=== PATIENT | female | born 1955 | race African-American/Black ===

== ENCOUNTER 2017-05-28 14:05 | Emergency (ER) | payer MEDICARE, MEDICAID ==
[~2017-05-28] VITALS: Ht 165.1 cm; Wt 60.0 kg
[~2017-05-28 14:05] MED LIST: AMLO10TA80 PO; ASPI1TAB6 PO; BUPR150T2 PO; PANT40TA4 PO; QUET200T29 PO; SIMV20TA6 PO; SITA100T11 PO; VALS1TAB78 PO
[2017-05-28 16:56] LABS: BASOPHILS % 0.7 % (0.0-2.0); EOSINOPHILS % 1.1 % (0.0-5.0); HEMATOCRIT. 45.3 % (36.0-48.0); HEMOGLOBIN. 15.7 g/dL (12.0-16.0); LYMPHOCYTES % 36.5 % (20.0-50.0); MEAN CORPUSCULAR HEMOGLOBIN 35.6 pg (28.0-32.0); MEAN CORPUSCULAR VOLUME 102.8 fL (81.0-99.0); MEAN PLATELET VOLUME 9.6 fl (7.4-10.4); MONOCYTES % 6.4 % (2.0-8.0); NEUTROPHILS % 55.3 % (40.0-76.0); PLATELET 143 x1000/uL (130-400); RED BLOOD CELL COUNT 4.41 mill/uL (4.2-5.4); RED CELL DISTRIBUTION WIDTH 14.9 % (11.6-14.6)
[2017-05-28 17:03] LABS: CHLORIDE 95 mEq/L (98-107)
[2017-05-28 17:04] LABS: PROTHROMBIN TIME 10.7 sec (9.4-11.6)
[2017-05-28 17:11] LABS: CARBON DIOXIDE 29 mEq/L (21-32)
[2017-05-28] MEDS ORDERED: INSULIN REGULAR (HUMULIN R) 300UNITS/3ML SUBCUT NR (18:15)
[2017-05-28] MEDS ORDERED: ONDANSETRON HCL 4MG/2ML VIAL IV NR (18:15)
[2017-05-28] MEDS ORDERED: FAMOTIDINE 20MG/2ML VIAL IV NR (18:15)
[2017-05-28] MEDS ORDERED: SODIUM CHLORIDE 0.9% 1,000 ML IV NR (18:15)
[2017-05-28 19:18] LABS: CLARITY URINE CLEAR (CLEAR); COLOR URINE YELLOW (YELLOW); KETONES URINE 1+ (NEGATIVE); LEUKOCYTE ESTERASE URINE NEGATIVE (NEGATIVE); NITRITE URINE NEGATIVE (NEGATIVE); OCCULT BLOOD URINE NEGATIVE (NEGATIVE); PROTEIN URINE NEGATIVE (NEGATIVE); SPECIFIC GRAVITY URINE 1.032 (1.005-1.030); UROBILINOGEN URINE 0.2 E.U./dL (0.2-1.0)
[2017-05-28] MEDS ORDERED: ACETAMINOPHEN WITH CODEINE 300/30MG TABLET PO ONE (19:30)
[2017-05-28] MEDS ORDERED: FLUCONAZOLE 100MG TABLET PO ONE (20:15)
[2017-05-28] MEDS ORDERED: FLUCONAZOLE 100MG TABLET PO NR (21:00)
[2017-05-28 21:19] VITALS: BP 113/69
== END 2017-05-28 21:42 | disposition home or self-care (01) ==
LOC: ER 14:30
DX: R19.7 Diarrhea, unspecified (principal); B37.3 Candidiasis of vulva and vagina; E11.65 Type 2 diabetes mellitus with hyperglycemia; I10 Essential (primary) hypertension; E78.00 Pure hypercholesterolemia, unspecified; Z88.5 Allergy status to narcotic agent; Z79.82 Long term (current) use of aspirin; Z79.899 Other long term (current) drug therapy; Z86.59 Personal history of other mental and behavioral disorders
CPT/HCPCS: 36415; 80053; 81001; 82962; 83690; 85025; 85610; 93005; 96361; 96372; 96374; 96375; 99285; J1815; J2405; J3490; J7030

== ENCOUNTER 2019-03-08 04:16 | Inpatient (IN) | payer MEDICARE, MEDICAID ==
[~2019-03-08] VITALS: Ht 165.1 cm; Wt 63.5 kg
[2019-03-08] MEDS ORDERED: PREDNISONE 20MG TABLET PO STA (04:50)
[2019-03-08] MEDS ORDERED: ALBUTEROL (0.083%) 2.5MG/3ML NEB HHN STA (04:50)
[2019-03-08] MEDS ORDERED: IPRATROPIUM BROMIDE (0.02%) 0.5MG/2.5ML NEB HHN STA (04:50)
[2019-03-08] MEDS ORDERED: MAGNESIUM 2 G PREMIX 50 ML IV ONE (05:00)
[2019-03-08 05:12] LABS: BASOPHILS % 1.3 % (0.0-2.0); EOSINOPHILS % 2.3 % (0.0-5.0); HEMATOCRIT. 36.7 % (36.0-48.0); HEMOGLOBIN. 12.5 g/dL (12.0-16.0); LYMPHOCYTES % 47.6 % (20.0-50.0); MEAN CORPUSCULAR HEMOGLOBIN 33.9 pg (28.0-32.0); MEAN CORPUSCULAR VOLUME 99.2 fL (81.0-99.0); MEAN PLATELET VOLUME 8.3 fl (7.4-10.4); MONOCYTES % 8.2 % (2.0-8.0); NEUTROPHILS % 40.6 % (40.0-76.0); PLATELET 176 x1000/uL (130-400); RED BLOOD CELL COUNT 3.69 mill/uL (4.2-5.4); RED CELL DISTRIBUTION WIDTH 14.5 % (11.6-14.6)
[2019-03-08 05:14] LABS: CHLORIDE 104 mEq/L (98-107)
[2019-03-08] MEDS ORDERED: ONDANSETRON HCL 4MG/2ML INJ IV ONE (06:15)
[2019-03-08] MEDS ORDERED: NOREPINEPHRINE 4 MG in DEXT 5% WATER 246 ML IV ONE (06:30)
[2019-03-08] MEDS ORDERED: DOCUSATE SODIUM 100MG CAPSULE PO PRN (06:45)
[2019-03-08] MEDS ORDERED: CLONIDINE 0.1MG TABLET PO PRN (06:45)
[2019-03-08] MEDS ORDERED: HYDROCODONE/ACETAMINOPHEN 10/325MG TABLET PO PRN (06:45)
[2019-03-08] MEDS ORDERED: DIPHENHYDRAMINE 50MG/ML VIAL IV PRN (06:45)
[2019-03-08] MEDS ORDERED: MAGNESIUM/ALUMINUM HYDROXIDE/SIMETHICONE 30ML UDC PO PRN (06:45)
[2019-03-08] MEDS ORDERED: LORAZEPAM 2MG/ML CPJ IV PRN (06:45)
[2019-03-08] MEDS ORDERED: ONDANSETRON HCL 4MG/2ML INJ IV PRN (06:45)
[2019-03-08] MEDS ORDERED: GUAIFENESIN 200MG/10ML SUGAR FREE UDC PO PRN (06:45)
[2019-03-08] MEDS ORDERED: ACETAMINOPHEN 325MG TABLET PO PRN (06:45)
[2019-03-08] MEDS ORDERED: DEXTROSE 50% WATER 50ML SYRINGE IV PRN (07:00)
[2019-03-08] MEDS ORDERED: IPRATROPIUM/ALBUTEROL 0.5-3(2.5)MG/3ML NEB HHN PRN (08:00)
[2019-03-08] MEDS: BLOOD SUGAR DIAGNOSTIC STRIP TEST SCH ×4 (08:09→21:01)
[2019-03-08 08:10] VITALS: BP_SYST 156; BP_DIAS 56; BP_DIAS 93
[2019-03-08] MEDS: INSULIN LISPRO 100 UNITS/ML SUBCUT SCH ×4 (08:10→20:57)
[2019-03-08] MEDS ORDERED: NA PHOS,M-B/NA PHOS,DI-BA ENEMA 118ML PR PRN (09:00)
[2019-03-08] MEDS: ASPIRIN 81MG EC TABLET PO SCH (09:16)
[2019-03-08] MEDS: ENOXAPARIN 40MG/0.4ML SYR SUBCUT SCH (09:17)
[2019-03-08 12:00] VITALS: BP 156/87
[2019-03-08] MEDS: SODIUM CHLORIDE 0.9% INJ 3ML FLUSH IVF SCH ×2 (12:37→20:58)
[2019-03-08] MEDS: ACETAMINOPHEN WITH CODEINE 300/30MG TABLET PO PRN (13:46)
[2019-03-08] MEDS: MULTIVITAMINS,THER W-MINERALS TABLET PO SCH (14:26)
[2019-03-08] MEDS: METHYLPREDNISOLONE SOD SUCC 40 MG/ML VIAL IV SCH ×2 (14:26→20:58)
[2019-03-08] MEDS: THIAMINE HCL 100MG TABLET PO SCH (14:26)
[2019-03-08] MEDS: FOLIC ACID 1MG TABLET PO SCH (14:27)
[2019-03-08] MEDS: NICOTINE 21MG PATCH TD SCH (14:27)
[2019-03-08 16:00] VITALS: BP 151/74
[2019-03-08 16:59] LABS: CLARITY URINE CLOUDY (CLEAR); COLOR URINE YELLOW (YELLOW); KETONES URINE NEGATIVE (NEGATIVE); LEUKOCYTE ESTERASE URINE NEGATIVE (NEGATIVE); NITRITE URINE POSITIVE (NEGATIVE); OCCULT BLOOD URINE NEGATIVE (NEGATIVE); PROTEIN URINE NEGATIVE (NEGATIVE); SPECIFIC GRAVITY URINE 1.026 (1.005-1.030); UROBILINOGEN URINE 0.2 E.U./dL (0.2-1.0)
[2019-03-08 17:10] LABS: *AMPHETAMINES SCREEN URINE NEGATIVE (NEGATIVE); *BARBITURATES SCREEN URINE NEGATIVE (NEGATIVE); *BENZODIAZEPINES SCREEN URINE NEGATIVE (NEGATIVE); *COCAINE SCREEN URINE NEGATIVE (NEGATIVE)
[2019-03-08 17:11] LABS: CANNABINOID URINE SCREEN NEGATIVE (NEGATIVE); METHADONE URINE SCREEN NEGATIVE (NEGATIVE); OPIATES URINE SCREEN PRESUMTIVE POSITIVE (NEGATIVE); PHENCYCLIDINE URINE SCREEN NEGATIVE (NEGATIVE)
[2019-03-08 18:23] LABS: CREATINE KINASE 232 IU/L (26-192); CREATINE KINASE MB FRACTION 3.2 ng/mL (0.5-3.6)
[2019-03-08 20:00] VITALS: BP 166/94
[2019-03-08] MEDS: QUETIAPINE FUMARATE 50MG TABLET PO SCH ×2 (21:00→23:25)
[2019-03-08] MEDS: HYDRALAZINE 20MG/ML VIAL IV PRN (21:05)
[2019-03-08] MEDS: IPRATROPIUM/ALBUTEROL 0.5-3(2.5)MG/3ML NEB HHN SCH (21:05)
[2019-03-09] VITALS: BP 124/69
[2019-03-09 00:47] LABS: CREATINE KINASE 165 IU/L (26-192)
[2019-03-09 00:51] LABS: CREATINE KINASE MB FRACTION 2.9 ng/mL (0.5-3.6)
[2019-03-09] MEDS: IPRATROPIUM/ALBUTEROL 0.5-3(2.5)MG/3ML NEB HHN SCH ×4 (03:05→20:13)
[2019-03-09 04:00] VITALS: BP 116/75
[2019-03-09 05:57] LABS: BASOPHILS % 0.5 % (0.0-2.0); HEMATOCRIT. 42.3 % (36.0-48.0); HEMOGLOBIN. 14.4 g/dL (12.0-16.0); LYMPHOCYTES % 9.2 % (20.0-50.0); MEAN CORPUSCULAR HEMOGLOBIN 33.9 pg (28.0-32.0); MEAN CORPUSCULAR VOLUME 99.5 fL (81.0-99.0); MEAN PLATELET VOLUME 8.9 fl (7.4-10.4); MONOCYTES % 3.2 % (2.0-8.0); NEUTROPHILS % 87.1 % (40.0-76.0); PLATELET 211 x1000/uL (130-400); RED BLOOD CELL COUNT 4.25 mill/uL (4.2-5.4); RED CELL DISTRIBUTION WIDTH 14.4 % (11.6-14.6)
[2019-03-09] MEDS: METHYLPREDNISOLONE SOD SUCC 40 MG/ML VIAL IV SCH ×3 (06:23→21:11)
[2019-03-09] MEDS: BLOOD SUGAR DIAGNOSTIC STRIP TEST SCH ×4 (06:27→20:57)
[2019-03-09] MEDS: INSULIN LISPRO 100 UNITS/ML SUBCUT SCH ×5 (06:27→21:19)
[2019-03-09] MEDS: SODIUM CHLORIDE 0.9% INJ 3ML FLUSH IVF SCH ×3 (06:28→21:11)
[2019-03-09 06:35] LABS: CHLORIDE 97 mEq/L (98-107)
[2019-03-09 06:47] LABS: LDL CHOLESTEROL 106 mg/dL (5-100); T4 FREE 0.72 ng/dL (0.76-1.46)
[2019-03-09 06:48] LABS: HDL CHOLESTEROL 104 mg/dL (40-59)
[2019-03-09 08:00] VITALS: BP 168/85
[2019-03-09] MEDS: ENOXAPARIN 40MG/0.4ML SYR SUBCUT SCH (08:56)
[2019-03-09] MEDS: MULTIVITAMINS,THER W-MINERALS TABLET PO SCH (08:57)
[2019-03-09] MEDS: FOLIC ACID 1MG TABLET PO SCH (08:57)
[2019-03-09] MEDS: THIAMINE HCL 100MG TABLET PO SCH (08:57)
[2019-03-09] MEDS: ASPIRIN 81MG EC TABLET PO SCH (08:57)
[2019-03-09] MEDS: NICOTINE 21MG PATCH TD SCH (09:22)
[2019-03-09] MEDS ORDERED: LEVOFLOXACIN 500MG TABLET PO SCH (10:30)
[2019-03-09 12:00] VITALS: BP 165/83
[2019-03-09] MEDS: INSULIN GLARGINE UD 100 UNITS/ML SYR SUBCUT SCH (13:11)
[2019-03-09] MEDS: HYDRALAZINE 20MG/ML VIAL IV PRN (13:56)
[2019-03-09 16:00] VITALS: BP 147/82
[2019-03-09] MEDS: ACETAMINOPHEN WITH CODEINE 300/30MG TABLET PO PRN (18:06)
[2019-03-09 18:22] LABS: BG BASE EXCESS 1.7 mmol/L (-2.0-2.0); BG CARBOXYHEMOGLOBIN 0.7 % (0.5-1.5); BG FRACTION INSPIRED OXYGEN 21; BG HCO3 ACT 25.3 mmol/L (22.0-26.0); BG OXYHEMOGLOBIN 96.3 % (94.0-97.0); BG PCO2 36.6 mmHg (35.0-45.0); BG PH 7.458 (7.350-7.450); BG PO2 93.1 mmHg (75.0-100.0); BG SAMPLE SITE RIGHT BRACHIAL; BG TOTAL HEMOGLOBIN 14.6 g/dL (12.0-18.0); BG VENT MODE ROOM AIR
[2019-03-09 20:00] VITALS: BP 153/96
[2019-03-09] MEDS: QUETIAPINE FUMARATE 50MG TABLET PO SCH (20:56)
[2019-03-10] VITALS: BP 146/85
[2019-03-10] MEDS: IPRATROPIUM/ALBUTEROL 0.5-3(2.5)MG/3ML NEB HHN SCH ×3 (02:00→13:08)
[2019-03-10 04:00] VITALS: BP 144/75
[2019-03-10] MEDS: SODIUM CHLORIDE 0.9% INJ 3ML FLUSH IVF SCH (06:04)
[2019-03-10] MEDS: BLOOD SUGAR DIAGNOSTIC STRIP TEST SCH ×2 (06:04→12:50)
[2019-03-10] MEDS: METHYLPREDNISOLONE SOD SUCC 40 MG/ML VIAL IV SCH (06:04)
[2019-03-10 07:31] LABS: BASOPHILS % 0.2 % (0.0-2.0); HEMATOCRIT. 37.5 % (36.0-48.0); HEMOGLOBIN. 12.7 g/dL (12.0-16.0); LYMPHOCYTES % 10.8 % (20.0-50.0); MEAN CORPUSCULAR HEMOGLOBIN 33.7 pg (28.0-32.0); MEAN CORPUSCULAR VOLUME 99.2 fL (81.0-99.0); MEAN PLATELET VOLUME 8.9 fl (7.4-10.4); PLATELET 187 x1000/uL (130-400); RED BLOOD CELL COUNT 3.78 mill/uL (4.2-5.4); RED CELL DISTRIBUTION WIDTH 14.8 % (11.6-14.6)
[2019-03-10 07:45] LABS: CHLORIDE 103 mEq/L (98-107)
[2019-03-10 08:00] VITALS: BP 135/71
[2019-03-10] MEDS: ASPIRIN 81MG EC TABLET PO SCH (08:34)
[2019-03-10] MEDS: MULTIVITAMINS,THER W-MINERALS TABLET PO SCH (08:35)
[2019-03-10] MEDS: ENOXAPARIN 40MG/0.4ML SYR SUBCUT SCH (08:35)
[2019-03-10] MEDS: FOLIC ACID 1MG TABLET PO SCH (08:35)
[2019-03-10] MEDS: THIAMINE HCL 100MG TABLET PO SCH (08:35)
[2019-03-10] MEDS: NICOTINE 21MG PATCH TD SCH (08:36)
[2019-03-10] MEDS: INSULIN LISPRO 100 UNITS/ML SUBCUT SCH (09:07)
[2019-03-10 12:00] VITALS: BP 153/88
[2019-03-10 12:02] VITALS: BP 135/71
[2019-03-10] MEDS: INSULIN GLARGINE UD 100 UNITS/ML SYR SUBCUT SCH (12:52)
== END 2019-03-10 15:11 | disposition home or self-care (01) | DRG 189 ==
LOC: ER 04:16 → 7WST 06:42 → EDBEDREQTM 06:46 → EDBEDREQ 06:46 → ENRESERV 07:20 → 7WST 09:05
PROVIDERS: ADMIT Internal Medicine; ATTEND Internal Medicine
DX: J96.00 Acute respiratory failure, unspecified whether with hypoxia or hypercapnia (principal); J44.1 Chronic obstructive pulmonary disease with (acute) exacerbation; N39.0 Urinary tract infection, site not specified; I10 Essential (primary) hypertension; E11.9 Type 2 diabetes mellitus without complications; F41.9 Anxiety disorder, unspecified; F17.210 Nicotine dependence, cigarettes, uncomplicated; K76.0 Fatty (change of) liver, not elsewhere classified; Z60.2 Problems related to living alone; Z79.899 Other long term (current) drug therapy; Z79.84 Long term (current) use of oral hypoglycemic drugs; Z79.82 Long term (current) use of aspirin; Z88.6 Allergy status to analgesic agent; Z90.49 Acquired absence of other specified parts of digestive tract; Z98.891 History of uterine scar from previous surgery; Z84.89 Family history of other specified conditions
CPT/HCPCS: 36415; 36600; 71045; 80048; 80061; 80305; 81003; 82375; 82550; 82553; 82805; 82962; 83880; 84439; 84443; 84484; 93005; 94640; 99291; J0360; J1650; J1815; J2405; J2920; J3475; J3490; J7060; J7512; J7611; J7620

== ENCOUNTER 2019-03-23 06:07 | Inpatient (IN) | payer MEDICARE, MEDICAID ==
[~2019-03-23] VITALS: Ht 167.6 cm; Wt 64.9 kg
[2019-03-23] VITALS (7 sets, daily range): BP systolic 124–197; BP diastolic 65–96
[~2019-03-23 06:07] MED LIST changes: -BUPR150T2 PO; -SIMV20TA6 PO; -SITA100T11 PO; -VALS1TAB78 PO
[2019-03-23 08:12] LABS: CHLORIDE 106 mEq/L (98-107)
[2019-03-23 08:25] LABS: BASOPHILS % 0.5 % (0.0-2.0); EOSINOPHILS % 2.1 % (0.0-5.0); HEMATOCRIT. 36.4 % (36.0-48.0); HEMOGLOBIN. 12.2 g/dL (12.0-16.0); LYMPHOCYTES % 24.4 % (20.0-50.0); MEAN CORPUSCULAR HEMOGLOBIN 33.7 pg (28.0-32.0); MEAN CORPUSCULAR VOLUME 100.4 fL (81.0-99.0); MEAN PLATELET VOLUME 9.2 fl (7.4-10.4); MONOCYTES % 6.4 % (2.0-8.0); NEUTROPHILS % 66.6 % (40.0-76.0); PLATELET 150 x1000/uL (130-400); RED BLOOD CELL COUNT 3.63 mill/uL (4.2-5.4); RED CELL DISTRIBUTION WIDTH 15.2 % (11.6-14.6)
[2019-03-23] MEDS ORDERED: ONDANSETRON HCL 4MG/2ML INJ IV PRN (12:00)
[2019-03-23] MEDS ORDERED: ACETAMINOPHEN 325MG TABLET PO PRN (12:00)
[2019-03-23] MEDS ORDERED: DOCUSATE SODIUM 100MG CAPSULE PO PRN (12:00)
[2019-03-23] MEDS ORDERED: HYDROCODONE/ACETAMINOPHEN 5/325MG TABLET PO PRN (12:00)
[2019-03-23] MEDS ORDERED: LORAZEPAM 0.5MG TABLET PO PRN (12:00)
[2019-03-23] MEDS ORDERED: CLONIDINE 0.1MG TABLET PO PRN (12:00)
[2019-03-23] MEDS: IPRATROPIUM/ALBUTEROL 0.5-3(2.5)MG/3ML NEB HHN SCH ×3 (13:02→21:58)
[2019-03-23] MEDS ORDERED: DEXTROSE 50% WATER 50ML SYRINGE IV PRN (13:15)
[2019-03-23] MEDS: INSULIN LISPRO 100 UNITS/ML SUBCUT SCH ×3 (13:45→21:43)
[2019-03-23] MEDS ORDERED: METHYLPREDNISOLONE SOD SUCC 125 MG/2 ML VIAL IV NR (16:28)
[2019-03-23] MEDS ORDERED: TERBUTALINE SULFATE 1MG/ML VIAL SUBCUT NR (16:30)
[2019-03-23] MEDS ORDERED: LORAZEPAM 2MG/ML CPJ IV PRN (17:15)
[2019-03-23] MEDS ORDERED: ALPRAZOLAM 0.25 MG TABLET PO PRN (17:15)
[2019-03-23] MEDS: BLOOD SUGAR DIAGNOSTIC STRIP TEST SCH ×2 (17:33→21:43)
[2019-03-23] MEDS ORDERED: IPRATROPIUM/ALBUTEROL 0.5-3(2.5)MG/3ML NEB HHN PRN (18:00)
[2019-03-23] MEDS: THIAMINE HCL 100MG TABLET PO SCH (18:20)
[2019-03-23] MEDS: MULTIVITAMINS,THER W-MINERALS TABLET PO SCH (18:20)
[2019-03-23] MEDS: ENOXAPARIN 40MG/0.4ML SYR SUBCUT SCH (18:20)
[2019-03-23] MEDS: LORATADINE 10MG TABLET PO SCH (18:21)
[2019-03-23] MEDS: FOLIC ACID 1MG TABLET PO SCH (18:21)
[2019-03-23] MEDS ORDERED: QUETIAPINE FUMARATE 50MG TABLET PO SCH (21:00)
[2019-03-23] MEDS: PANTOPRAZOLE 40MG DR TABLET PO SCH (21:05)
[2019-03-23] MEDS: AMLODIPINE 10MG TABLET PO SCH (21:06)
[2019-03-23] MEDS: FAMOTIDINE 20MG TABLET PO SCH (21:42)
[2019-03-23] MEDS: QUETIAPINE FUMARATE 50MG TABLET PO SCH (21:42)
[2019-03-24] VITALS (12 sets, daily range): BP systolic 93–150; BP diastolic 49–79
[2019-03-24] MEDS: IPRATROPIUM/ALBUTEROL 0.5-3(2.5)MG/3ML NEB HHN SCH ×6 (01:50→20:45)
[2019-03-24] MEDS: FLUTICASONE PROPIONATE 50MCG/SPRAY BOTTLE BOTHNSTRLS SCH ×3 (01:57→20:19)
[2019-03-24 05:57] LABS: CHLORIDE 101 mEq/L (98-107)
[2019-03-24 06:06] LABS: LDL CHOLESTEROL 82 mg/dL (5-100)
[2019-03-24 06:08] LABS: HDL CHOLESTEROL 119 mg/dL (40-59)
[2019-03-24 06:16] LABS: HEMATOCRIT. 39.3 % (36.0-48.0); HEMOGLOBIN. 13.1 g/dL (12.0-16.0); MEAN CORPUSCULAR HEMOGLOBIN 33.9 pg (28.0-32.0); MEAN CORPUSCULAR VOLUME 101.4 fL (81.0-99.0); MEAN PLATELET VOLUME 9.5 fl (7.4-10.4); PLATELET 138 x1000/uL (130-400); RED BLOOD CELL COUNT 3.88 mill/uL (4.2-5.4); RED CELL DISTRIBUTION WIDTH 15.3 % (11.6-14.6)
[2019-03-24] MEDS ORDERED: INSULIN LISPRO 100 UNITS/ML SUBCUT SCH (07:45)
[2019-03-24] MEDS ORDERED: INSULIN LISPRO 100 UNITS/ML SUBCUT ONE (07:45)
[2019-03-24] MEDS ORDERED: DEXTROSE 50% WATER 50ML SYRINGE IV PRN (07:45)
[2019-03-24] MEDS: INSULIN LISPRO 100 UNITS/ML SUBCUT SCH ×4 (07:49→21:58)
[2019-03-24] MEDS: FOLIC ACID 1MG TABLET PO SCH (08:44)
[2019-03-24] MEDS: MULTIVITAMINS,THER W-MINERALS TABLET PO SCH (08:44)
[2019-03-24] MEDS: LORATADINE 10MG TABLET PO SCH (08:45)
[2019-03-24] MEDS: DOCUSATE SODIUM 100MG CAPSULE PO SCH ×3 (08:45→16:42)
[2019-03-24] MEDS: THIAMINE HCL 100MG TABLET PO SCH (08:45)
[2019-03-24] MEDS: PANTOPRAZOLE 40MG DR TABLET PO SCH (08:45)
[2019-03-24] MEDS: AMLODIPINE 10MG TABLET PO SCH (08:45)
[2019-03-24] MEDS: FAMOTIDINE 20MG TABLET PO SCH ×2 (08:45→20:19)
[2019-03-24] MEDS: NICOTINE 7MG PATCH TD SCH (08:46)
[2019-03-24] MEDS: BLOOD SUGAR DIAGNOSTIC STRIP TEST SCH ×3 (13:10→21:59)
[2019-03-24] MEDS ORDERED: TERBUTALINE SULFATE 1MG/ML VIAL SUBCUT NR (15:00)
[2019-03-24 15:17] LABS: PLATELET ESTIMATE NORMAL
[2019-03-24] MEDS: ENOXAPARIN 40MG/0.4ML SYR SUBCUT SCH (17:33)
[2019-03-24] MEDS: METHYLPREDNISOLONE SOD SUCC 125 MG/2 ML VIAL IV SCH (17:33)
[2019-03-24] MEDS: ACETAMINOPHEN WITH CODEINE 300/30MG TABLET PO PRN (20:20)
[2019-03-24] MEDS ORDERED: INSULIN LISPRO 100 UNITS/ML SUBCUT NR (21:45)
[2019-03-24] MEDS: QUETIAPINE FUMARATE 50MG TABLET PO SCH (22:00)
[2019-03-24] MEDS: INSULIN GLARGINE UD 100 UNITS/ML SYR SUBCUT SCH (22:03)
[2019-03-25] VITALS (12 sets, daily range): BP systolic 118–157; BP diastolic 47–90
[2019-03-25] MEDS: IPRATROPIUM/ALBUTEROL 0.5-3(2.5)MG/3ML NEB HHN SCH ×6 (00:12→21:19)
[2019-03-25] MEDS: METHYLPREDNISOLONE SOD SUCC 125 MG/2 ML VIAL IV SCH ×3 (01:24→12:07)
[2019-03-25 06:28] LABS: HEMATOCRIT. 36.8 % (36.0-48.0); HEMOGLOBIN. 12.3 g/dL (12.0-16.0); MEAN CORPUSCULAR HEMOGLOBIN 33.7 pg (28.0-32.0); MEAN CORPUSCULAR VOLUME 100.6 fL (81.0-99.0); MEAN PLATELET VOLUME 9.5 fl (7.4-10.4); PLATELET 152 x1000/uL (130-400); RED BLOOD CELL COUNT 3.66 mill/uL (4.2-5.4); RED CELL DISTRIBUTION WIDTH 14.8 % (11.6-14.6)
[2019-03-25 06:57] LABS: CHLORIDE 102 mEq/L (98-107)
[2019-03-25] MEDS: BLOOD SUGAR DIAGNOSTIC STRIP TEST SCH ×4 (08:25→21:00)
[2019-03-25] MEDS: PANTOPRAZOLE 40MG DR TABLET PO SCH (08:34)
[2019-03-25] MEDS: FAMOTIDINE 20MG TABLET PO SCH ×2 (08:38→22:07)
[2019-03-25] MEDS: MULTIVITAMINS,THER W-MINERALS TABLET PO SCH (08:38)
[2019-03-25] MEDS: THIAMINE HCL 100MG TABLET PO SCH (08:38)
[2019-03-25] MEDS: FLUTICASONE PROPIONATE 50MCG/SPRAY BOTTLE BOTHNSTRLS SCH ×2 (08:38→22:07)
[2019-03-25] MEDS: AMLODIPINE 10MG TABLET PO SCH (08:39)
[2019-03-25] MEDS: ACETAMINOPHEN WITH CODEINE 300/30MG TABLET PO PRN ×2 (08:39→18:17)
[2019-03-25] MEDS: FOLIC ACID 1MG TABLET PO SCH (08:39)
[2019-03-25] MEDS: LORATADINE 10MG TABLET PO SCH (08:39)
[2019-03-25] MEDS: NICOTINE 7MG PATCH TD SCH (08:41)
[2019-03-25] MEDS: DOCUSATE SODIUM 100MG CAPSULE PO SCH ×2 (08:41→17:00)
[2019-03-25] MEDS: INSULIN LISPRO 100 UNITS/ML SUBCUT SCH ×4 (08:57→22:08)
[2019-03-25] MEDS: INSULIN GLARGINE UD 100 UNITS/ML SYR SUBCUT SCH ×2 (09:45→22:07)
[2019-03-25 16:56] LABS: PLATELET ESTIMATE NORMAL
[2019-03-25] MEDS: ENOXAPARIN 40MG/0.4ML SYR SUBCUT SCH (17:18)
[2019-03-25] MEDS: METHYLPREDNISOLONE SOD SUCC 40 MG/ML VIAL IV SCH (17:19)
[2019-03-25] MEDS: QUETIAPINE FUMARATE 50MG TABLET PO SCH (22:07)
[2019-03-26] VITALS (11 sets, daily range): BP systolic 126–170; BP diastolic 56–104
[2019-03-26] MEDS: IPRATROPIUM/ALBUTEROL 0.5-3(2.5)MG/3ML NEB HHN SCH ×6 (00:24→20:30)
[2019-03-26] MEDS: METHYLPREDNISOLONE SOD SUCC 40 MG/ML VIAL IV SCH ×3 (01:42→17:40)
[2019-03-26 07:14] LABS: HEMATOCRIT. 38.1 % (36.0-48.0); MEAN CORPUSCULAR HEMOGLOBIN 33.7 pg (28.0-32.0); MEAN CORPUSCULAR VOLUME 99.2 fL (81.0-99.0); MEAN PLATELET VOLUME 9.3 fl (7.4-10.4); PLATELET 145 x1000/uL (130-400); RED BLOOD CELL COUNT 3.85 mill/uL (4.2-5.4); RED CELL DISTRIBUTION WIDTH 15.1 % (11.6-14.6)
[2019-03-26 07:31] LABS: CHLORIDE 104 mEq/L (98-107)
[2019-03-26] MEDS: INSULIN LISPRO 100 UNITS/ML SUBCUT SCH ×4 (08:00→20:51)
[2019-03-26] MEDS: BLOOD SUGAR DIAGNOSTIC STRIP TEST SCH ×4 (08:29→20:52)
[2019-03-26] MEDS: AMLODIPINE 10MG TABLET PO SCH (08:49)
[2019-03-26] MEDS: FAMOTIDINE 20MG TABLET PO SCH ×2 (08:49→20:48)
[2019-03-26] MEDS: FLUTICASONE PROPIONATE 50MCG/SPRAY BOTTLE BOTHNSTRLS SCH ×2 (08:49→20:53)
[2019-03-26] MEDS: MULTIVITAMINS,THER W-MINERALS TABLET PO SCH (08:49)
[2019-03-26] MEDS: LORATADINE 10MG TABLET PO SCH (08:49)
[2019-03-26] MEDS: NICOTINE 7MG PATCH TD SCH (08:50)
[2019-03-26] MEDS: DOCUSATE SODIUM 100MG CAPSULE PO SCH ×2 (08:50→17:00)
[2019-03-26] MEDS: FOLIC ACID 1MG TABLET PO SCH (08:50)
[2019-03-26] MEDS: THIAMINE HCL 100MG TABLET PO SCH (08:50)
[2019-03-26] MEDS: INSULIN GLARGINE UD 100 UNITS/ML SYR SUBCUT SCH ×2 (09:01→21:57)
[2019-03-26 12:42] LABS: PLATELET ESTIMATE NORMAL
[2019-03-26] MEDS: ENOXAPARIN 40MG/0.4ML SYR SUBCUT SCH (17:44)
[2019-03-26] MEDS: ACETAMINOPHEN WITH CODEINE 300/30MG TABLET PO PRN (20:48)
[2019-03-26] MEDS: QUETIAPINE FUMARATE 50MG TABLET PO SCH (23:57)
[2019-03-27] VITALS (8 sets, daily range): BP systolic 127–158; BP diastolic 72–100
[2019-03-27] MEDS: IPRATROPIUM/ALBUTEROL 0.5-3(2.5)MG/3ML NEB HHN SCH ×4 (01:00→11:47)
[2019-03-27 07:26] LABS: BASOPHILS % 0.1 % (0.0-2.0); HEMATOCRIT. 36.5 % (36.0-48.0); HEMOGLOBIN. 12.3 g/dL (12.0-16.0); LYMPHOCYTES % 17.1 % (20.0-50.0); MEAN CORPUSCULAR HEMOGLOBIN 33.9 pg (28.0-32.0); MEAN CORPUSCULAR VOLUME 100.3 fL (81.0-99.0); MEAN PLATELET VOLUME 9.7 fl (7.4-10.4); MONOCYTES % 5.4 % (2.0-8.0); NEUTROPHILS % 77.4 % (40.0-76.0); PLATELET 141 x1000/uL (130-400); RED BLOOD CELL COUNT 3.63 mill/uL (4.2-5.4); RED CELL DISTRIBUTION WIDTH 15.1 % (11.6-14.6)
[2019-03-27 07:28] LABS: CHLORIDE 105 mEq/L (98-107)
[2019-03-27] MEDS: INSULIN LISPRO 100 UNITS/ML SUBCUT SCH ×2 (08:00→12:38)
[2019-03-27] MEDS: BLOOD SUGAR DIAGNOSTIC STRIP TEST SCH ×2 (08:03→12:28)
[2019-03-27] MEDS: THIAMINE HCL 100MG TABLET PO SCH (08:24)
[2019-03-27] MEDS: AMLODIPINE 10MG TABLET PO SCH (08:24)
[2019-03-27] MEDS: METHYLPREDNISOLONE SOD SUCC 40 MG/ML VIAL IV SCH (08:24)
[2019-03-27] MEDS: FAMOTIDINE 20MG TABLET PO SCH (08:24)
[2019-03-27] MEDS: DOCUSATE SODIUM 100MG CAPSULE PO SCH ×2 (08:24→08:32)
[2019-03-27] MEDS: MULTIVITAMINS,THER W-MINERALS TABLET PO SCH (08:24)
[2019-03-27] MEDS: NICOTINE 7MG PATCH TD SCH (08:24)
[2019-03-27] MEDS: LORATADINE 10MG TABLET PO SCH (08:24)
[2019-03-27] MEDS: FOLIC ACID 1MG TABLET PO SCH (08:24)
[2019-03-27] MEDS: INSULIN GLARGINE UD 100 UNITS/ML SYR SUBCUT SCH (10:51)
[2019-03-27] MEDS ORDERED: INSLIS SUBCUT (12:33)
[2019-03-27] MEDS ORDERED: FAMO20TA8 PO (12:33)
[2019-03-27] MEDS ORDERED: LANTUSUD SUBCUT (12:33)
[2019-03-27] MEDS ORDERED: FOLI-43 PO (12:33)
[2019-03-27] MEDS ORDERED: LORA-249 PO (12:33)
[2019-03-27] MEDS ORDERED: SEREDK INH (12:33)
[2019-03-27] MEDS ORDERED: CLAR10 PO (12:33)
[2019-03-27] MEDS ORDERED: THIA100T72 PO (12:33)
== END 2019-03-27 20:45 | disposition home or self-care (01) | DRG 189 ==
LOC: ER 06:07 → 7WST 09:01 → EDBEDREQ 09:26 → ENRESERV 09:51 → 5EST 17:28
PROVIDERS: ADMIT Internal Medicine; ATTEND Internal Medicine
PROC: 5A09357 Assistance with Respiratory Ventilation, Less than 24 Consecutive Hours, Continuous Positive Airway Pressure (ICD-10-PCS; principal; 2019-03-23)
DX: J96.00 Acute respiratory failure, unspecified whether with hypoxia or hypercapnia (principal); J44.1 Chronic obstructive pulmonary disease with (acute) exacerbation; E11.65 Type 2 diabetes mellitus with hyperglycemia; F10.10 Alcohol abuse, uncomplicated; F17.200 Nicotine dependence, unspecified, uncomplicated; F41.0 Panic disorder [episodic paroxysmal anxiety]; F41.1 Generalized anxiety disorder; I16.0 Hypertensive urgency; J30.9 Allergic rhinitis, unspecified; I10 Essential (primary) hypertension; K59.00 Constipation, unspecified; K76.0 Fatty (change of) liver, not elsewhere classified; Z86.73 Personal history of transient ischemic attack (TIA), and cerebral infarction without residual deficits; Z79.4 Long term (current) use of insulin; Z90.49 Acquired absence of other specified parts of digestive tract; Z82.49 Family history of ischemic heart disease and other diseases of the circulatory system; Z83.3 Family history of diabetes mellitus; Z87.440 Personal history of urinary (tract) infections; Z88.5 Allergy status to narcotic agent
CPT/HCPCS: 36415; 71045; 80048; 80061; 82962; 83036; 83880; 84484; 93005; 94640; 94660; 99285; J1650; J1815; J2920; J2930; J3105; J7620

== ENCOUNTER 2019-04-01 06:55 | Inpatient (IN) | payer MEDICARE, OTHER ==
[~2019-04-01] VITALS: Ht 167.6 cm; Wt 83.9 kg
[~2019-04-01 06:55] MED LIST changes: -ASPI1TAB6 PO; +CLAR10 PO; +FAMO20TA8 PO; +FOLI-43 PO; +INSLIS SUBCUT; +LANTUSUD SUBCUT; +LORA-249 PO; -PANT40TA4 PO; +SEREDK INH; +THIA100T72 PO
[2019-04-01] MEDS ORDERED: METHYLPREDNISOLONE SOD SUCC 125 MG/2 ML VIAL IV STA (07:57)
[2019-04-01] MEDS ORDERED: ALBUTEROL (0.083%) 2.5MG/3ML NEB HHN STA (07:57)
[2019-04-01 08:38] LABS: BASOPHILS % 0.7 % (0.0-2.0); EOSINOPHILS % 2.9 % (0.0-5.0); HEMATOCRIT. 38.1 % (36.0-48.0); HEMOGLOBIN. 12.8 g/dL (12.0-16.0); LYMPHOCYTES % 28.6 % (20.0-50.0); MEAN CORPUSCULAR HEMOGLOBIN 33.6 pg (28.0-32.0); MEAN CORPUSCULAR VOLUME 100.3 fL (81.0-99.0); MEAN PLATELET VOLUME 9.9 fl (7.4-10.4); MONOCYTES % 10.1 % (2.0-8.0); NEUTROPHILS % 57.7 % (40.0-76.0); PLATELET 141 x1000/uL (130-400); RED CELL DISTRIBUTION WIDTH 14.7 % (11.6-14.6)
[2019-04-01 08:42] LABS: CHLORIDE 104 mEq/L (98-107)
[2019-04-01 08:50] LABS: ETHANOL BLOOD < 10 mg/dL
[2019-04-01 09:42] LABS: *AMPHETAMINES SCREEN URINE NEGATIVE (NEGATIVE)
[2019-04-01 09:43] LABS: *BARBITURATES SCREEN URINE NEGATIVE (NEGATIVE); *BENZODIAZEPINES SCREEN URINE NEGATIVE (NEGATIVE); *COCAINE SCREEN URINE NEGATIVE (NEGATIVE); METHADONE URINE SCREEN NEGATIVE (NEGATIVE); OPIATES URINE SCREEN NEGATIVE (NEGATIVE); PHENCYCLIDINE URINE SCREEN NEGATIVE (NEGATIVE)
[2019-04-01 09:44] LABS: CANNABINOID URINE SCREEN NEGATIVE (NEGATIVE)
[2019-04-01] MEDS ORDERED: DEXTROSE 50% WATER 50ML SYRINGE IV PRN (12:30)
[2019-04-01] MEDS ORDERED: IPRATROPIUM/ALBUTEROL 0.5-3(2.5)MG/3ML NEB HHN PRN (12:30)
[2019-04-01] MEDS ORDERED: ONDANSETRON HCL 4MG/2ML INJ IV PRN (12:30)
[2019-04-01] MEDS: BLOOD SUGAR DIAGNOSTIC STRIP TEST SCH ×3 (12:45→21:40)
[2019-04-01] MEDS: INSULIN LISPRO 100 UNITS/ML SUBCUT SCH ×3 (13:55→21:38)
[2019-04-01 14:00] VITALS: BP 194/106
[2019-04-01] MEDS ORDERED: CLONIDINE 0.1MG TABLET PO PRN (14:30)
[2019-04-01] MEDS: METHYLPREDNISOLONE SOD SUCC 40 MG/ML VIAL IV SCH ×2 (15:08→22:33)
[2019-04-01] MEDS: LOSARTAN POTASSIUM 100 MG TABLET PO SCH (15:08)
[2019-04-01 16:31] VITALS: BP 195/105
[2019-04-01] MEDS: GLIPIZIDE 5MG TABLET PO SCH (17:48)
[2019-04-01] MEDS: METFORMIN HCL 500MG TABLET PO SCH (17:48)
[2019-04-01] MEDS: ALPRAZOLAM 0.25 MG TABLET PO SCH (17:49)
[2019-04-01 20:00] VITALS: BP 144/64
[2019-04-01] MEDS: IPRATROPIUM/ALBUTEROL 0.5-3(2.5)MG/3ML NEB HHN SCH ×2 (20:27→23:17)
[2019-04-01] MEDS ORDERED: QUETIAPINE FUMARATE 50MG TABLET PO SCH (21:00)
[2019-04-01] MEDS ORDERED: AMLODIPINE 5MG TABLET PO SCH (21:00)
[2019-04-01] MEDS: HYDRALAZINE HCL 100MG TABLET PO SCH (21:39)
[2019-04-01] MEDS: AMLODIPINE 5MG TABLET PO SCH (21:40)
[2019-04-01] MEDS: QUETIAPINE FUMARATE 50MG TABLET PO SCH (22:33)
[2019-04-01] MEDS: INSULIN GLARGINE UD 100 UNITS/ML SYR SUBCUT SCH (22:54)
[2019-04-02] VITALS: BP 150/68
[2019-04-02] MEDS: ACETAMINOPHEN 325MG TABLET PO PRN ×2 (03:49→09:21)
[2019-04-02 04:00] VITALS: BP 142/63
[2019-04-02] MEDS: IPRATROPIUM/ALBUTEROL 0.5-3(2.5)MG/3ML NEB HHN SCH ×5 (04:12→20:37)
[2019-04-02] MEDS: BLOOD SUGAR DIAGNOSTIC STRIP TEST SCH ×4 (06:25→21:08)
[2019-04-02] MEDS: INSULIN LISPRO 100 UNITS/ML SUBCUT SCH ×6 (06:30→21:49)
[2019-04-02] MEDS: METHYLPREDNISOLONE SOD SUCC 40 MG/ML VIAL IV SCH (06:30)
[2019-04-02] MEDS: GLIPIZIDE 5MG TABLET PO SCH ×2 (06:30→17:02)
[2019-04-02 08:00] VITALS: BP 127/72
[2019-04-02] MEDS: ALPRAZOLAM 0.25 MG TABLET PO SCH ×2 (09:24→17:02)
[2019-04-02] MEDS: METFORMIN HCL 500MG TABLET PO SCH ×2 (09:25→17:02)
[2019-04-02] MEDS: AMLODIPINE 5MG TABLET PO SCH ×2 (09:25→21:32)
[2019-04-02] MEDS: LOSARTAN POTASSIUM 100 MG TABLET PO SCH (09:26)
[2019-04-02] MEDS: HYDRALAZINE HCL 100MG TABLET PO SCH ×2 (09:26→21:33)
[2019-04-02] MEDS: INSULIN GLARGINE UD 100 UNITS/ML SYR SUBCUT SCH ×2 (09:28→23:52)
[2019-04-02] MEDS: FAMOTIDINE 20MG TABLET PO SCH ×2 (11:02→21:32)
[2019-04-02 12:50] VITALS: BP 131/79
[2019-04-02 16:15] VITALS: BP 118/56
[2019-04-02] MEDS ORDERED: INSULIN LISPRO 100 UNITS/ML SUBCUT NR (17:00)
[2019-04-02] MEDS: PREDNISONE 20MG TABLET PO SCH (17:02)
[2019-04-02] MEDS: FLUTICASONE PROPIONATE 50MCG/SPRAY BOTTLE BOTHNSTRLS SCH ×2 (18:31→22:55)
[2019-04-02 20:00] VITALS: BP 150/86
[2019-04-02] MEDS: QUETIAPINE FUMARATE 50MG TABLET PO SCH ×2 (22:54→23:16)
[2019-04-03] VITALS: BP 124/60
[2019-04-03] MEDS: IPRATROPIUM/ALBUTEROL 0.5-3(2.5)MG/3ML NEB HHN SCH ×4 (01:50→11:35)
[2019-04-03 04:00] VITALS: BP 107/56
[2019-04-03] MEDS: ACETAMINOPHEN 325MG TABLET PO PRN (05:19)
[2019-04-03] MEDS: BLOOD SUGAR DIAGNOSTIC STRIP TEST SCH (06:49)
[2019-04-03] MEDS: GLIPIZIDE 5MG TABLET PO SCH (06:53)
[2019-04-03] MEDS: PREDNISONE 20MG TABLET PO SCH (06:53)
[2019-04-03] MEDS: METFORMIN HCL 500MG TABLET PO SCH (06:53)
[2019-04-03] MEDS: INSULIN LISPRO 100 UNITS/ML SUBCUT SCH ×2 (06:58→06:59)
[2019-04-03 08:00] VITALS: BP 131/72
[2019-04-03] MEDS: FLUTICASONE PROPIONATE 50MCG/SPRAY BOTTLE BOTHNSTRLS SCH (10:08)
[2019-04-03] MEDS: HYDRALAZINE HCL 100MG TABLET PO SCH (10:09)
[2019-04-03] MEDS: FAMOTIDINE 20MG TABLET PO SCH (10:09)
[2019-04-03] MEDS: ALPRAZOLAM 0.25 MG TABLET PO SCH (10:09)
[2019-04-03] MEDS: LOSARTAN POTASSIUM 100 MG TABLET PO SCH (10:09)
[2019-04-03] MEDS: AMLODIPINE 5MG TABLET PO SCH (10:09)
[2019-04-03] MEDS: INSULIN GLARGINE UD 100 UNITS/ML SYR SUBCUT SCH (10:14)
[2019-04-03 12:48] VITALS: BP 132/72
== END 2019-04-03 13:40 | disposition home or self-care (01) | DRG 189 ==
LOC: ER 06:55 → 8WST 11:30 → EDBEDREQ 11:32 → EDBEDREQTM 11:32 → ENRESERV 12:24 → 8WST 13:29
PROVIDERS: ADMIT Internal Medicine; ATTEND Internal Medicine
DX: J96.00 Acute respiratory failure, unspecified whether with hypoxia or hypercapnia (principal); J44.1 Chronic obstructive pulmonary disease with (acute) exacerbation; N39.0 Urinary tract infection, site not specified; I16.0 Hypertensive urgency; E11.65 Type 2 diabetes mellitus with hyperglycemia; F10.10 Alcohol abuse, uncomplicated; F41.0 Panic disorder [episodic paroxysmal anxiety]; K76.0 Fatty (change of) liver, not elsewhere classified; K70.0 Alcoholic fatty liver; J30.9 Allergic rhinitis, unspecified; I10 Essential (primary) hypertension; F17.210 Nicotine dependence, cigarettes, uncomplicated; Z87.440 Personal history of urinary (tract) infections; Z90.49 Acquired absence of other specified parts of digestive tract; Z88.5 Allergy status to narcotic agent; Z79.899 Other long term (current) drug therapy; Z86.73 Personal history of transient ischemic attack (TIA), and cerebral infarction without residual deficits
CPT/HCPCS: 36415; 71045; 80305; 80320; 82962; 84484; 93005; 93306; 93970; 94618; 94640; 99291; J1815; J2920; J2930; J7512; J7611; J7620; G0480

== ENCOUNTER 2019-04-16 05:51 | Emergency (ER) | payer MEDICARE, OTHER ==
[~2019-04-16] VITALS: Ht 162.6 cm; Wt 77.0 kg
[2019-04-16] MEDS ORDERED: METHYLPREDNISOLONE SOD SUCC 125 MG/2 ML VIAL IV STA (06:30)
[2019-04-16] MEDS ORDERED: IPRATROPIUM BROMIDE (0.02%) 0.5MG/2.5ML NEB HHN STA (06:30)
[2019-04-16] MEDS ORDERED: ALBUTEROL (0.083%) 2.5MG/3ML NEB HHN STA (06:30)
[2019-04-16] MEDS ORDERED: SODIUM CHLORIDE 0.9% 1,000 ML IV ONE (06:33)
[2019-04-16 09:00] VITALS: BP 145/88
== END 2019-04-16 09:10 | disposition home or self-care (01) ==
LOC: ER 05:51
DX: J20.9 Acute bronchitis, unspecified (principal); R06.2 Wheezing; E11.9 Type 2 diabetes mellitus without complications; I10 Essential (primary) hypertension
CPT/HCPCS: 71045; 94640; 96374; 99283; J2930; J7030; J7611

== ENCOUNTER 2019-04-21 17:04 | Inpatient (IN) | payer MEDICARE, OTHER ==
[~2019-04-21] VITALS: Ht 167.6 cm; Wt 83.9 kg
[2019-04-21] MEDS ORDERED: MAGNESIUM 2 G PREMIX 50 ML IV STA (17:28)
[2019-04-21] MEDS ORDERED: IPRATROPIUM BROMIDE (0.02%) 0.5MG/2.5ML NEB HHN STA (17:28)
[2019-04-21] MEDS ORDERED: ALBUTEROL (0.083%) 2.5MG/3ML NEB HHN STA (17:28)
[2019-04-21] MEDS ORDERED: SODIUM CHLORIDE 0.9% 1,000 ML IV ONE ×2 (17:28→19:15)
[2019-04-21 18:38] LABS: EOSINOPHILS % 1.8 % (0.0-5.0); HEMATOCRIT. 38.7 % (36.0-48.0); HEMOGLOBIN. 13.1 g/dL (12.0-16.0); LYMPHOCYTES % 31.8 % (20.0-50.0); MEAN CORPUSCULAR HEMOGLOBIN 34.3 pg (28.0-32.0); MEAN CORPUSCULAR VOLUME 101.4 fL (81.0-99.0); MEAN PLATELET VOLUME 9.7 fl (7.4-10.4); MONOCYTES % 8.5 % (2.0-8.0); NEUTROPHILS % 56.9 % (40.0-76.0); PLATELET 231 x1000/uL (130-400); RED BLOOD CELL COUNT 3.82 mill/uL (4.2-5.4); RED CELL DISTRIBUTION WIDTH 15.5 % (11.6-14.6)
[2019-04-21 18:55] LABS: CHLORIDE 98 mEq/L (98-107)
[2019-04-21] MEDS: DIPHENHYDRAMINE 50MG/ML VIAL IV ONE ×2 (20:13→20:18)
[2019-04-21] MEDS: METOCLOPRAMIDE HCL 10MG/2ML VIAL IV ONE ×2 (20:13→20:18)
[2019-04-21] MEDS ORDERED: METHYLPREDNISOLONE SOD SUCC 125 MG/2 ML VIAL IV ONE (20:30)
[2019-04-21] MEDS ORDERED: ALBUTEROL (0.5%) 2.5MG/0.5ML NEB HHN ONE (20:30)
[2019-04-21] MEDS ORDERED: ACETAMINOPHEN WITH CODEINE 300/30MG TABLET PO ONE (20:30)
[2019-04-21] MEDS ORDERED: QUETIAPINE FUMARATE 50MG TABLET PO SCH (21:00)
[2019-04-21] MEDS ORDERED: GUAIFENESIN 200MG/10ML SUGAR FREE UDC PO PRN (21:45)
[2019-04-21] MEDS ORDERED: ONDANSETRON HCL 4MG/2ML INJ IV PRN (21:45)
[2019-04-21] MEDS ORDERED: IPRATROPIUM/ALBUTEROL 0.5-3(2.5)MG/3ML NEB NEB PRN (21:45)
[2019-04-21] MEDS ORDERED: DOCUSATE SODIUM 100MG CAPSULE PO PRN (21:45)
[2019-04-21] MEDS ORDERED: MAGNESIUM/ALUMINUM HYDROXIDE/SIMETHICONE 30ML UDC PO PRN (21:45)
[2019-04-21 22:50] VITALS: BP 179/94
[2019-04-21] MEDS ORDERED: DEXTROSE 50% WATER 50ML SYRINGE IV PRN (23:30)
[2019-04-21] MEDS: OMEPRAZOLE 20MG CAPSULE EXTENDED RELEASE PO SCH (23:55)
[2019-04-21] MEDS: CLONIDINE 0.1MG TABLET PO PRN (23:55)
[2019-04-21 23:57] LABS: CHLORIDE 107 mEq/L (98-107)
[2019-04-22 00:07] LABS: CREATINE KINASE 693 IU/L (26-192)
[2019-04-22 00:09] LABS: CREATINE KINASE MB FRACTION 11.2 ng/mL (0.5-3.6)
[2019-04-22 00:28] VITALS: BP 179/94
[2019-04-22] MEDS: METHYLPREDNISOLONE SOD SUCC 40 MG/ML VIAL IV SCH ×3 (00:58→17:42)
[2019-04-22] MEDS: INSULIN GLARGINE UD 100 UNITS/ML SYR SUBCUT SCH ×2 (01:00→22:50)
[2019-04-22] MEDS: INSULIN LISPRO 100 UNITS/ML SUBCUT SCH ×5 (01:01→22:51)
[2019-04-22] MEDS: BLOOD SUGAR DIAGNOSTIC STRIP TEST SCH ×5 (01:01→21:00)
[2019-04-22] MEDS: SODIUM CHLORIDE 0.9% 1,000 ML IV SCH ×3 (01:03→23:03)
[2019-04-22] MEDS ORDERED: QUETIAPINE FUMARATE 50MG TABLET PO SCH ×2 (04:00→21:00)
[2019-04-22] MEDS ORDERED: IPRATROPIUM/ALBUTEROL 0.5-3(2.5)MG/3ML NEB HHN PRN (04:00)
[2019-04-22] MEDS: IPRATROPIUM/ALBUTEROL 0.5-3(2.5)MG/3ML NEB HHN SCH ×5 (04:19→21:46)
[2019-04-22] MEDS: BUDESONIDE 0.5MG/2ML NEB HHN SCH ×3 (04:19→21:45)
[2019-04-22 04:45] VITALS: BP 143/82
[2019-04-22] MEDS: OMEPRAZOLE 20MG CAPSULE EXTENDED RELEASE PO SCH (06:41)
[2019-04-22 07:42] LABS: BASOPHILS % 0.5 % (0.0-2.0); EOSINOPHILS % 0.2 % (0.0-5.0); HEMATOCRIT. 36.6 % (36.0-48.0); HEMOGLOBIN. 12.4 g/dL (12.0-16.0); LYMPHOCYTES % 9.3 % (20.0-50.0); MEAN CORPUSCULAR HEMOGLOBIN 34.3 pg (28.0-32.0); MEAN CORPUSCULAR VOLUME 101.7 fL (81.0-99.0); MEAN PLATELET VOLUME 8.4 fl (7.4-10.4); MONOCYTES % 1.6 % (2.0-8.0); NEUTROPHILS % 88.4 % (40.0-76.0); PLATELET 175 x1000/uL (130-400); RED CELL DISTRIBUTION WIDTH 15.4 % (11.6-14.6)
[2019-04-22 07:51] LABS: CREATINE KINASE MB FRACTION 8.2 ng/mL (0.5-3.6)
[2019-04-22 08:00] VITALS: BP 115/63
[2019-04-22] MEDS: ENOXAPARIN 40MG/0.4ML SYR SUBCUT SCH (09:27)
[2019-04-22 12:00] VITALS: BP 150/83
[2019-04-22 17:40] VITALS: BP 185/95
[2019-04-22] MEDS: CLONIDINE 0.1MG TABLET PO PRN (17:41)
[2019-04-22] MEDS: ALPRAZOLAM 0.25 MG TABLET PO SCH (17:41)
[2019-04-22] MEDS: ACETAMINOPHEN 325MG TABLET PO PRN (17:42)
[2019-04-22 20:00] VITALS: BP 131/71
[2019-04-22] MEDS: FAMOTIDINE 20MG TABLET PO SCH (22:43)
[2019-04-23] VITALS (7 sets, daily range): BP systolic 135–174; BP diastolic 61–100
[2019-04-23] MEDS: IPRATROPIUM/ALBUTEROL 0.5-3(2.5)MG/3ML NEB HHN SCH ×5 (01:55→15:49)
[2019-04-23] MEDS: METHYLPREDNISOLONE SOD SUCC 40 MG/ML VIAL IV SCH (03:48)
[2019-04-23] MEDS: FAMOTIDINE 20MG TABLET PO SCH (05:50)
[2019-04-23] MEDS: BLOOD SUGAR DIAGNOSTIC STRIP TEST SCH ×3 (05:50→17:20)
[2019-04-23 06:49] LABS: BASOPHILS % 0.6 % (0.0-2.0); HEMATOCRIT. 37.6 % (36.0-48.0); HEMOGLOBIN. 12.7 g/dL (12.0-16.0); LYMPHOCYTES % 9.3 % (20.0-50.0); MEAN CORPUSCULAR HEMOGLOBIN 34.2 pg (28.0-32.0); MEAN CORPUSCULAR VOLUME 101.4 fL (81.0-99.0); MEAN PLATELET VOLUME 8.9 fl (7.4-10.4); MONOCYTES % 4.3 % (2.0-8.0); NEUTROPHILS % 85.8 % (40.0-76.0); PLATELET 191 x1000/uL (130-400); RED BLOOD CELL COUNT 3.71 mill/uL (4.2-5.4); RED CELL DISTRIBUTION WIDTH 15.3 % (11.6-14.6)
[2019-04-23 07:10] LABS: CHLORIDE 104 mEq/L (98-107)
[2019-04-23] MEDS: BUDESONIDE 0.5MG/2ML NEB HHN SCH (07:53)
[2019-04-23] MEDS: ENOXAPARIN 40MG/0.4ML SYR SUBCUT SCH (09:00)
[2019-04-23] MEDS: ALPRAZOLAM 0.25 MG TABLET PO SCH ×2 (09:27→17:02)
[2019-04-23] MEDS: INSULIN LISPRO 100 UNITS/ML SUBCUT SCH ×3 (09:29→18:27)
[2019-04-23] MEDS: SODIUM CHLORIDE 0.9% 1,000 ML IV SCH (12:31)
[2019-04-23] MEDS ORDERED: METHYLPREDNISOLONE SOD SUCC 40 MG/ML VIAL IV SCH (13:00)
[2019-04-23] MEDS ORDERED: IPRA3AMP9 HHN (14:11)
[2019-04-23] MEDS ORDERED: ALBU18HF2 IH (14:46)
[2019-04-23] MEDS ORDERED: P20 MT (15:00)
[2019-04-23] MEDS: ACETAMINOPHEN 325MG TABLET PO PRN (17:00)
[2019-04-23] MEDS: CLONIDINE 0.1MG TABLET PO PRN (20:35)
== END 2019-04-23 20:45 | disposition home or self-care (01) | DRG 190 ==
LOC: ER 17:04 → 6WST 20:24 → ENRESERV 21:20
PROVIDERS: ADMIT Internal Medicine; ATTEND Internal Medicine
DX: J44.1 Chronic obstructive pulmonary disease with (acute) exacerbation (principal); J96.00 Acute respiratory failure, unspecified whether with hypoxia or hypercapnia; E87.1 Hypo-osmolality and hyponatremia; E11.65 Type 2 diabetes mellitus with hyperglycemia; F10.10 Alcohol abuse, uncomplicated; F17.210 Nicotine dependence, cigarettes, uncomplicated; F41.0 Panic disorder [episodic paroxysmal anxiety]; I10 Essential (primary) hypertension; K76.0 Fatty (change of) liver, not elsewhere classified; Z60.2 Problems related to living alone; Z87.440 Personal history of urinary (tract) infections; Z90.49 Acquired absence of other specified parts of digestive tract; Z79.4 Long term (current) use of insulin; Z88.6 Allergy status to analgesic agent; Z79.899 Other long term (current) drug therapy
CPT/HCPCS: 36415; 71045; 80048; 80061; 82550; 82553; 82962; 83036; 83735; 83880; 84443; 84484; 93005; 93970; 94640; 94644; 97162; 99285; J1200; J1650; J1815; J2765; J2920; J3475; J7030; J7611; J7620; J7626

== ENCOUNTER 2019-05-30 09:23 | Inpatient (IN) | payer MEDICARE, OTHER ==
[~2019-05-30] VITALS: Ht 165.1 cm; Wt 63.0 kg
[~2019-05-30 09:23] MED LIST changes: +ALBU18HF2 IH; +IPRA3AMP9 HHN; +P20 MT
[2019-05-30] MEDS ORDERED: METHYLPREDNISOLONE SOD SUCC 125 MG/2 ML VIAL IV STA (10:22)
[2019-05-30] MEDS ORDERED: IPRATROPIUM BROMIDE (0.02%) 0.5MG/2.5ML NEB HHN STA (10:22)
[2019-05-30] MEDS ORDERED: ALBUTEROL (0.083%) 2.5MG/3ML NEB HHN STA (10:22)
[2019-05-30] MEDS ORDERED: ALBUTEROL (0.5%) 2.5MG/0.5ML NEB HHN ONE (10:39)
[2019-05-30] MEDS ORDERED: ALBUTEROL (0.083%) 2.5MG/3ML NEB ONE (10:40)
[2019-05-30 10:41] LABS: HEMATOCRIT. 39.5 % (36.0-48.0); HEMOGLOBIN. 13.2 g/dL (12.0-16.0); MEAN CORPUSCULAR HEMOGLOBIN 33.8 pg (28.0-32.0); MEAN CORPUSCULAR VOLUME 101.1 fL (81.0-99.0); MEAN PLATELET VOLUME 10.1 fl (7.4-10.4); PLATELET 178 x1000/uL (130-400); RED CELL DISTRIBUTION WIDTH 14.5 % (11.6-14.6)
[2019-05-30] MEDS ORDERED: IPRATROPIUM BROMIDE (0.02%) 0.5MG/2.5ML NEB ONE (10:41)
[2019-05-30 10:46] LABS: CHLORIDE 101 mEq/L (98-107)
[2019-05-30 13:40] LABS: PLATELET ESTIMATE NORMAL
[2019-05-30] MEDS ORDERED: CLONIDINE 0.1MG TABLET PO PRN (15:00)
[2019-05-30] MEDS ORDERED: MAGNESIUM/ALUMINUM HYDROXIDE/SIMETHICONE 30ML UDC PO PRN (15:00)
[2019-05-30] MEDS ORDERED: DOCUSATE SODIUM 100MG CAPSULE PO PRN (15:00)
[2019-05-30] MEDS ORDERED: GUAIFENESIN 200MG/10ML SUGAR FREE UDC PO PRN (15:00)
[2019-05-30] MEDS ORDERED: ONDANSETRON HCL 4MG/2ML INJ IV PRN (15:00)
[2019-05-30] MEDS ORDERED: INSULIN REGULAR (HUMULIN R) 300UNITS/3ML ONE (21:39)
[2019-05-30] MEDS ORDERED: INSULIN REGULAR (HUMULIN R) 300UNITS/3ML SUBCUT NR (21:57)
[2019-05-30 23:30] VITALS: BP 150/89
[2019-05-30] MEDS: METHYLPREDNISOLONE SOD SUCC 125 MG/2 ML VIAL IV SCH (23:49)
[2019-05-31] VITALS: BP 150/89
[2019-05-31] MEDS: ACETAMINOPHEN 325MG TABLET PO PRN ×3 (00:10→21:22)
[2019-05-31] MEDS: IPRATROPIUM/ALBUTEROL 0.5-3(2.5)MG/3ML NEB NEB SCH ×4 (01:45→21:13)
[2019-05-31] MEDS ORDERED: MONT10TA24 PO (03:06)
[2019-05-31] MEDS ORDERED: LOSA50TA41 PO (03:08)
[2019-05-31] MEDS ORDERED: OMEP-265 PO (03:09)
[2019-05-31 04:00] VITALS: BP 148/79
[2019-05-31 07:22] LABS: BASOPHILS % 0.1 % (0.0-2.0); HEMATOCRIT. 39.5 % (36.0-48.0); HEMOGLOBIN. 13.3 g/dL (12.0-16.0); LYMPHOCYTES % 12.2 % (20.0-50.0); MEAN CORPUSCULAR HEMOGLOBIN 33.9 pg (28.0-32.0); MEAN CORPUSCULAR VOLUME 100.4 fL (81.0-99.0); MONOCYTES % 2.7 % (2.0-8.0); PLATELET 164 x1000/uL (130-400); RED BLOOD CELL COUNT 3.94 mill/uL (4.2-5.4); RED CELL DISTRIBUTION WIDTH 14.1 % (11.6-14.6)
[2019-05-31 07:26] LABS: CHLORIDE 99 mEq/L (98-107)
[2019-05-31 07:38] LABS: PHOSPHORUS 2.4 mg/dL (2.5-4.9)
[2019-05-31 07:39] LABS: LDL CHOLESTEROL 100 mg/dL (5-100)
[2019-05-31 07:41] LABS: HDL CHOLESTEROL 99 mg/dL (40-59)
[2019-05-31] MEDS: METHYLPREDNISOLONE SOD SUCC 125 MG/2 ML VIAL IV SCH ×3 (08:15→17:32)
[2019-05-31] MEDS ORDERED: MONTELUKAST SODIUM 10MG TABLET PO PRN (10:00)
[2019-05-31] MEDS ORDERED: LORAZEPAM 0.5MG TABLET PO PRN (10:00)
[2019-05-31] MEDS ORDERED: DEXTROSE 50% WATER 50ML SYRINGE IV PRN ×2 (10:15)
[2019-05-31] MEDS: AMLODIPINE 10MG TABLET PO SCH (10:41)
[2019-05-31] MEDS: LOSARTAN POTASSIUM 50 MG TABLET PO SCH (10:41)
[2019-05-31] MEDS: ENOXAPARIN 40MG/0.4ML SYR SUBCUT SCH (10:42)
[2019-05-31] MEDS: LORATADINE 10MG TABLET PO SCH (10:42)
[2019-05-31] MEDS ORDERED: MAGNESIUM 2 G PREMIX 50 ML IV SCH (12:00)
[2019-05-31] MEDS: BLOOD SUGAR DIAGNOSTIC STRIP TEST SCH ×3 (12:20→21:35)
[2019-05-31] MEDS: INSULIN GLARGINE UD 100 UNITS/ML SYR SUBCUT SCH ×2 (13:04→21:41)
[2019-05-31] MEDS: INSULIN LISPRO 100 UNITS/ML SUBCUT SCH ×3 (13:04→21:41)
[2019-05-31 13:51] LABS: T4 FREE 0.91 ng/dL (0.76-1.46)
[2019-05-31 16:00] VITALS: BP 139/83
[2019-05-31 20:00] VITALS: BP 150/83
[2019-05-31] MEDS: FAMOTIDINE 20MG TABLET PO SCH (21:33)
[2019-06-01] VITALS (7 sets, daily range): BP systolic 135–174; BP diastolic 85–105
[2019-06-01] MEDS: METHYLPREDNISOLONE SOD SUCC 125 MG/2 ML VIAL IV SCH ×3 (00:40→13:19)
[2019-06-01] MEDS: IPRATROPIUM/ALBUTEROL 0.5-3(2.5)MG/3ML NEB NEB SCH ×3 (01:07→14:51)
[2019-06-01 06:09] LABS: HEMATOCRIT. 42.1 % (36.0-48.0); MEAN CORPUSCULAR HEMOGLOBIN 33.4 pg (28.0-32.0); MEAN CORPUSCULAR VOLUME 100.7 fL (81.0-99.0); MEAN PLATELET VOLUME 9.7 fl (7.4-10.4); PLATELET 198 x1000/uL (130-400); RED BLOOD CELL COUNT 4.18 mill/uL (4.2-5.4); RED CELL DISTRIBUTION WIDTH 14.3 % (11.6-14.6)
[2019-06-01 06:43] LABS: CHLORIDE 98 mEq/L (98-107)
[2019-06-01] MEDS: BLOOD SUGAR DIAGNOSTIC STRIP TEST SCH ×2 (07:13→12:50)
[2019-06-01] MEDS: ACETAMINOPHEN 325MG TABLET PO PRN (08:03)
[2019-06-01] MEDS: AMLODIPINE 10MG TABLET PO SCH (08:27)
[2019-06-01] MEDS: LORATADINE 10MG TABLET PO SCH (08:28)
[2019-06-01] MEDS: LOSARTAN POTASSIUM 50 MG TABLET PO SCH (08:28)
[2019-06-01] MEDS: FAMOTIDINE 20MG TABLET PO SCH (08:28)
[2019-06-01] MEDS: INSULIN LISPRO 100 UNITS/ML SUBCUT SCH ×2 (08:32→12:50)
[2019-06-01] MEDS ORDERED: FOLIC ACID 1MG TABLET PO SCH (09:00)
[2019-06-01] MEDS ORDERED: THIAMINE HCL 100MG TABLET PO SCH (09:00)
[2019-06-01] MEDS: INSULIN GLARGINE UD 100 UNITS/ML SYR SUBCUT SCH (12:54)
[2019-06-01] MEDS: ENOXAPARIN 40MG/0.4ML SYR SUBCUT SCH (12:56)
[2019-06-01] MEDS ORDERED: INSULIN LISPRO 100 UNITS/ML SUBCUT SCH ×2 (13:45→17:20)
[2019-06-01 14:32] LABS: PLATELET ESTIMATE NORMAL
[2019-06-01] MEDS ORDERED: ALBU18HF2 IH (14:38)
[2019-06-01] MEDS ORDERED: P20 MT (14:38)
[2019-06-01] MEDS ORDERED: FLUT1DIS3 INH (14:38)
== END 2019-06-01 18:13 | disposition home or self-care (01) | DRG 189 ==
LOC: ER 09:23 → 6WST 13:26 → ENRESERV 20:14
PROVIDERS: ADMIT Internal Medicine; ATTEND Internal Medicine
DX: J96.00 Acute respiratory failure, unspecified whether with hypoxia or hypercapnia (principal); J44.1 Chronic obstructive pulmonary disease with (acute) exacerbation; J45.901 Unspecified asthma with (acute) exacerbation; E83.42 Hypomagnesemia; F10.10 Alcohol abuse, uncomplicated; F17.210 Nicotine dependence, cigarettes, uncomplicated; E11.65 Type 2 diabetes mellitus with hyperglycemia; R74.0 Nonspecific elevation of levels of transaminase and lactic acid dehydrogenase [LDH]; J06.9 Acute upper respiratory infection, unspecified; D70.9 Neutropenia, unspecified; I10 Essential (primary) hypertension; F41.0 Panic disorder [episodic paroxysmal anxiety]; Z87.440 Personal history of urinary (tract) infections; Z88.8 Allergy status to other drugs, medicaments and biological substances; Z79.899 Other long term (current) drug therapy; Z79.4 Long term (current) use of insulin
CPT/HCPCS: 36415; 70490; 71045; 76536; 80048; 80061; 82962; 83036; 83735; 83880; 84100; 84439; 84443; 84480; 84481; 84484; 92610; 93005; 93970; 97161; 99285; J1650; J1815; J2930; J3475; J7611; J7620

== ENCOUNTER 2019-06-22 07:30 | Inpatient (IN) | payer MEDICARE, OTHER ==
[~2019-06-22] VITALS: Ht 165.1 cm; Wt 69.1 kg
[~2019-06-22 07:30] MED LIST changes: +FLUT1DIS3 INH; +LOSA50TA41 PO; +MONT10TA26 PO; +OMEP-265 PO
[2019-06-22] MEDS ORDERED: MAGNESIUM 2 G PREMIX 50 ML IV STA (08:27)
[2019-06-22] MEDS ORDERED: IPRATROPIUM BROMIDE (0.02%) 0.5MG/2.5ML NEB HHN STA (08:27)
[2019-06-22] MEDS ORDERED: ALBUTEROL (0.083%) 2.5MG/3ML NEB HHN STA ×2 (08:27→10:07)
[2019-06-22] MEDS ORDERED: METHYLPREDNISOLONE SOD SUCC 125 MG/2 ML VIAL IV STA (08:27)
[2019-06-22 09:43] LABS: BASOPHILS % 1.7 % (0.0-2.0); EOSINOPHILS % 0.8 % (0.0-5.0); HEMATOCRIT. 40.3 % (36.0-48.0); HEMOGLOBIN. 13.4 g/dL (12.0-16.0); LYMPHOCYTES % 32.7 % (20.0-50.0); MEAN CORPUSCULAR HEMOGLOBIN 33.9 pg (28.0-32.0); MEAN CORPUSCULAR VOLUME 101.6 fL (81.0-99.0); MEAN PLATELET VOLUME 8.8 fl (7.4-10.4); MONOCYTES % 8.2 % (2.0-8.0); NEUTROPHILS % 56.6 % (40.0-76.0); PLATELET 130 x1000/uL (130-400); RED BLOOD CELL COUNT 3.97 mill/uL (4.2-5.4)
[2019-06-22 09:44] LABS: CHLORIDE 107 mEq/L (98-107)
[2019-06-22] MEDS ORDERED: LORAZEPAM 1MG TABLET PO ONE (09:45)
[2019-06-22] MEDS ORDERED: IPRATROPIUM/ALBUTEROL 0.5-3(2.5)MG/3ML NEB HHN PRN ×2 (17:45→21:00)
[2019-06-22] MEDS ORDERED: DOCUSATE SODIUM 100MG CAPSULE PO PRN (19:45)
[2019-06-22] MEDS ORDERED: ONDANSETRON HCL 4MG/2ML INJ IV PRN (19:45)
[2019-06-22] MEDS ORDERED: CLONIDINE 0.1MG TABLET PO PRN (19:45)
[2019-06-22] MEDS ORDERED: DEXTROSE 50% WATER 50ML SYRINGE IV PRN (19:45)
[2019-06-22] MEDS ORDERED: IPRATROPIUM/ALBUTEROL 0.5-3(2.5)MG/3ML NEB HHN SCH (19:45)
[2019-06-22] MEDS ORDERED: INSULIN LISPRO 100 UNITS/ML SUBCUT SCH (21:00)
[2019-06-22] MEDS: LORAZEPAM 1MG TABLET PO PRN (21:02)
[2019-06-22 21:18] LABS: BG BASE EXCESS -0.1 mmol/L (-2.0-2.0); BG CARBOXYHEMOGLOBIN 0.5 % (0.5-1.5); BG DEOXYHEMOGLOBIN 1.9 % (0.0-5.0); BG FRACTION INSPIRED OXYGEN 50; BG HCO3 ACT 24.9 mmol/L (22.0-26.0); BG METHEMOGLOBIN 0.1 % (0.0-1.5); BG OXYGEN SATURATION 98.1 % (92.0-98.5); BG OXYHEMOGLOBIN 97.5 % (94.0-97.0); BG PCO2 41.9 mmHg (35.0-45.0); BG PH 7.392 (7.350-7.450); BG PO2 156.9 mmHg (75.0-100.0); BG SAMPLE SITE RIGHT FEMORAL; BG TOTAL HEMOGLOBIN 13.2 g/dL (12.0-18.0); BG VENT MODE MASK - VENTI
[2019-06-22 21:48] VITALS: BP 166/91
[2019-06-22] MEDS ORDERED: INSULIN GLARGINE UD 100 UNITS/ML SYR SUBCUT NR (22:00)
[2019-06-22 22:30] VITALS: BP 132/68
[2019-06-22 23:05] VITALS: BP 132/68
[2019-06-22] MEDS: BLOOD SUGAR DIAGNOSTIC STRIP TEST SCH (23:20)
[2019-06-22] MEDS: METHYLPREDNISOLONE SOD SUCC 40 MG/ML VIAL IV SCH (23:32)
[2019-06-22] MEDS: FAMOTIDINE 40MG TABLET PO SCH (23:34)
[2019-06-22] MEDS: AMLODIPINE 10MG TABLET PO SCH (23:34)
[2019-06-22] MEDS: QUETIAPINE FUMARATE 50MG TABLET PO SCH (23:34)
[2019-06-22] MEDS: LOSARTAN POTASSIUM 50 MG TABLET PO SCH (23:34)
[2019-06-22] MEDS: ENOXAPARIN 40MG/0.4ML SYR SUBCUT SCH (23:35)
[2019-06-22] MEDS: INSULIN LISPRO 100 UNITS/ML SUBCUT SCH (23:37)
[2019-06-23] MEDS: IPRATROPIUM/ALBUTEROL 0.5-3(2.5)MG/3ML NEB HHN SCH ×6 (00:57→20:29)
[2019-06-23] MEDS ORDERED: RACEPINEPHRINE 2.25% 0.5ML NEB VIAL HHN NR (01:15)
[2019-06-23 04:00] VITALS: BP 120/80
[2019-06-23] MEDS: LORAZEPAM 1MG TABLET PO PRN (05:16)
[2019-06-23] MEDS: METHYLPREDNISOLONE SOD SUCC 40 MG/ML VIAL IV SCH ×3 (05:16→18:00)
[2019-06-23] MEDS: BLOOD SUGAR DIAGNOSTIC STRIP TEST SCH ×4 (05:44→20:39)
[2019-06-23] MEDS: INSULIN LISPRO 100 UNITS/ML SUBCUT SCH ×4 (05:44→21:19)
[2019-06-23 07:11] LABS: BASOPHILS % 0.5 % (0.0-2.0); HEMATOCRIT. 37.1 % (36.0-48.0); HEMOGLOBIN. 12.6 g/dL (12.0-16.0); LYMPHOCYTES % 9.5 % (20.0-50.0); MEAN CORPUSCULAR VOLUME 100.6 fL (81.0-99.0); MEAN PLATELET VOLUME 9.2 fl (7.4-10.4); MONOCYTES % 5.2 % (2.0-8.0); NEUTROPHILS % 84.8 % (40.0-76.0); PLATELET 126 x1000/uL (130-400); RED BLOOD CELL COUNT 3.69 mill/uL (4.2-5.4); RED CELL DISTRIBUTION WIDTH 13.6 % (11.6-14.6)
[2019-06-23 07:19] LABS: CHLORIDE 105 mEq/L (98-107)
[2019-06-23] MEDS: RACEPINEPHRINE 2.25% 0.5ML NEB VIAL HHN PRN ×4 (07:20→20:45)
[2019-06-23 07:28] LABS: CREATINE KINASE 314 IU/L (26-192)
[2019-06-23 07:30] LABS: CREATINE KINASE MB FRACTION 11.1 ng/mL (0.5-3.6)
[2019-06-23 08:00] VITALS: BP 145/74
[2019-06-23 08:40] LABS: *AMPHETAMINES SCREEN URINE NEGATIVE (NEGATIVE); *BARBITURATES SCREEN URINE NEGATIVE (NEGATIVE); *BENZODIAZEPINES SCREEN URINE NEGATIVE (NEGATIVE); *COCAINE SCREEN URINE NEGATIVE (NEGATIVE); METHADONE URINE SCREEN NEGATIVE (NEGATIVE); OPIATES URINE SCREEN NEGATIVE (NEGATIVE)
[2019-06-23 08:41] LABS: CANNABINOID URINE SCREEN NEGATIVE (NEGATIVE); PHENCYCLIDINE URINE SCREEN NEGATIVE (NEGATIVE)
[2019-06-23] MEDS ORDERED: INSULIN GLARGINE UD 100 UNITS/ML SYR SUBCUT SCH (10:00)
[2019-06-23] MEDS: LOSARTAN POTASSIUM 50 MG TABLET PO SCH (10:15)
[2019-06-23] MEDS: FOLIC ACID 1MG TABLET PO SCH (10:16)
[2019-06-23] MEDS: AMLODIPINE 10MG TABLET PO SCH (10:16)
[2019-06-23] MEDS: FAMOTIDINE 40MG TABLET PO SCH ×2 (10:16→21:17)
[2019-06-23 12:20] VITALS: BP 135/105
[2019-06-23] MEDS ORDERED: ASPIRIN 81MG TABLET PO SCH (12:30)
[2019-06-23] MEDS: ASPIRIN 81MG TABLET PO SCH (13:15)
[2019-06-23] MEDS: ACETAMINOPHEN 325MG TABLET PO PRN (13:23)
[2019-06-23 16:00] VITALS: BP 133/75
[2019-06-23 20:00] VITALS: BP 106/65
[2019-06-23] MEDS: QUETIAPINE FUMARATE 50MG TABLET PO SCH (21:17)
[2019-06-23] MEDS: ENOXAPARIN 40MG/0.4ML SYR SUBCUT SCH (21:18)
[2019-06-23] MEDS: INSULIN GLARGINE UD 100 UNITS/ML SYR SUBCUT SCH (23:36)
[2019-06-24] VITALS: BP 110/67
[2019-06-24] MEDS: IPRATROPIUM/ALBUTEROL 0.5-3(2.5)MG/3ML NEB HHN SCH ×6 (00:21→20:26)
[2019-06-24] MEDS: RACEPINEPHRINE 2.25% 0.5ML NEB VIAL HHN PRN ×2 (00:30→05:25)
[2019-06-24] MEDS: METHYLPREDNISOLONE SOD SUCC 40 MG/ML VIAL IV SCH ×5 (01:20→23:15)
[2019-06-24 04:00] VITALS: BP 107/66
[2019-06-24] MEDS: BLOOD SUGAR DIAGNOSTIC STRIP TEST SCH ×4 (05:45→20:38)
[2019-06-24] MEDS: INSULIN LISPRO 100 UNITS/ML SUBCUT SCH ×4 (06:37→21:00)
[2019-06-24 08:28] VITALS: BP 106/79
[2019-06-24] MEDS: FAMOTIDINE 40MG TABLET PO SCH ×2 (08:56→21:13)
[2019-06-24] MEDS: AMLODIPINE 10MG TABLET PO SCH (08:56)
[2019-06-24] MEDS: LOSARTAN POTASSIUM 50 MG TABLET PO SCH (08:56)
[2019-06-24] MEDS: FOLIC ACID 1MG TABLET PO SCH (08:56)
[2019-06-24] MEDS: ASPIRIN 81MG TABLET PO SCH (08:56)
[2019-06-24] MEDS: ACETAMINOPHEN 325MG TABLET PO PRN ×2 (09:04→18:48)
[2019-06-24] MEDS: INSULIN GLARGINE UD 100 UNITS/ML SYR SUBCUT SCH ×2 (10:18→21:16)
[2019-06-24 12:00] VITALS: BP 118/70
[2019-06-24 16:00] VITALS: BP 141/87
[2019-06-24] MEDS: GUAIFENESIN 200MG/10ML SUGAR FREE UDC PO PRN (16:55)
[2019-06-24 20:00] VITALS: BP 125/71
[2019-06-24] MEDS: SULFAMETHOXAZOLE/TRIMETHOPRIM 800/160MG TABLET PO SCH (21:13)
[2019-06-24] MEDS: QUETIAPINE FUMARATE 50MG TABLET PO SCH (21:14)
[2019-06-24] MEDS: ENOXAPARIN 40MG/0.4ML SYR SUBCUT SCH (21:14)
[2019-06-24 21:38] LABS: CLARITY URINE CLOUDY (CLEAR); COLOR URINE YELLOW (YELLOW); KETONES URINE NEGATIVE (NEGATIVE); LEUKOCYTE ESTERASE URINE NEGATIVE (NEGATIVE); NITRITE URINE NEGATIVE (NEGATIVE); OCCULT BLOOD URINE NEGATIVE (NEGATIVE); PH URINE 5.5 (4.5-8.0); PROTEIN URINE NEGATIVE (NEGATIVE); SPECIFIC GRAVITY URINE 1.011 (1.005-1.030); UROBILINOGEN URINE 0.2 E.U./dL (0.2-1.0)
[2019-06-25] VITALS: BP 125/73
[2019-06-25] MEDS: IPRATROPIUM/ALBUTEROL 0.5-3(2.5)MG/3ML NEB HHN SCH ×5 (01:52→21:15)
[2019-06-25 04:00] VITALS: BP 101/59
[2019-06-25] MEDS: METHYLPREDNISOLONE SOD SUCC 40 MG/ML VIAL IV SCH ×3 (05:45→17:06)
[2019-06-25] MEDS: BLOOD SUGAR DIAGNOSTIC STRIP TEST SCH ×4 (05:48→20:42)
[2019-06-25] MEDS: INSULIN LISPRO 100 UNITS/ML SUBCUT SCH ×4 (06:19→21:09)
[2019-06-25 08:00] VITALS: BP 131/75
[2019-06-25 08:10] LABS: HEMATOCRIT. 40.2 % (36.0-48.0); HEMOGLOBIN. 13.6 g/dL (12.0-16.0); MEAN CORPUSCULAR HEMOGLOBIN 33.9 pg (28.0-32.0); MEAN CORPUSCULAR VOLUME 100.3 fL (81.0-99.0); MEAN PLATELET VOLUME 9.4 fl (7.4-10.4); PLATELET 133 x1000/uL (130-400); RED BLOOD CELL COUNT 4.01 mill/uL (4.2-5.4); RED CELL DISTRIBUTION WIDTH 13.2 % (11.6-14.6)
[2019-06-25 08:32] LABS: CHLORIDE 103 mEq/L (98-107)
[2019-06-25] MEDS: FOLIC ACID 1MG TABLET PO SCH (09:16)
[2019-06-25] MEDS: AMLODIPINE 10MG TABLET PO SCH (09:16)
[2019-06-25] MEDS: ASPIRIN 81MG TABLET PO SCH (09:16)
[2019-06-25] MEDS: SULFAMETHOXAZOLE/TRIMETHOPRIM 800/160MG TABLET PO SCH ×2 (09:16→20:14)
[2019-06-25] MEDS: FAMOTIDINE 40MG TABLET PO SCH ×2 (09:16→20:15)
[2019-06-25] MEDS: LOSARTAN POTASSIUM 50 MG TABLET PO SCH (09:16)
[2019-06-25] MEDS: INSULIN GLARGINE UD 100 UNITS/ML SYR SUBCUT SCH ×2 (09:21→21:10)
[2019-06-25] MEDS: ACETAMINOPHEN 325MG TABLET PO PRN ×2 (09:24→19:05)
[2019-06-25 12:00] VITALS: BP 121/80
[2019-06-25 13:06] LABS: PLATELET ESTIMATE NORMAL
[2019-06-25 16:00] VITALS: BP 148/89
[2019-06-25] MEDS: GUAIFENESIN 200MG/10ML SUGAR FREE UDC PO PRN (17:06)
[2019-06-25 20:00] VITALS: BP 138/87
[2019-06-25] MEDS: QUETIAPINE FUMARATE 50MG TABLET PO SCH (20:14)
[2019-06-25] MEDS: ENOXAPARIN 40MG/0.4ML SYR SUBCUT SCH (20:15)
[2019-06-26] VITALS: BP 125/75
[2019-06-26] MEDS: METHYLPREDNISOLONE SOD SUCC 40 MG/ML VIAL IV SCH ×4 (00:07→17:28)
[2019-06-26 00:27] LABS: BG BASE EXCESS 0.2 mmol/L (-2.0-2.0); BG DEOXYHEMOGLOBIN 2.1 % (0.0-5.0); BG FRACTION INSPIRED OXYGEN 32; BG METHEMOGLOBIN 0.3 % (0.0-1.5); BG OXYGEN SATURATION 97.9 % (92.0-98.5); BG OXYHEMOGLOBIN 97.6 % (94.0-97.0); BG PCO2 40.9 mmHg (35.0-45.0); BG PH 7.404 (7.350-7.450); BG SAMPLE SITE RIGHT BRACHIAL; BG TOTAL HEMOGLOBIN 13.2 g/dL (12.0-18.0); BG VENT MODE NASAL CANNULA
[2019-06-26] MEDS: IPRATROPIUM/ALBUTEROL 0.5-3(2.5)MG/3ML NEB HHN SCH ×5 (00:41→17:10)
[2019-06-26 04:00] VITALS: BP 131/73
[2019-06-26] MEDS: INSULIN LISPRO 100 UNITS/ML SUBCUT SCH ×3 (06:07→17:29)
[2019-06-26] MEDS: BLOOD SUGAR DIAGNOSTIC STRIP TEST SCH ×3 (06:07→17:29)
[2019-06-26 08:00] VITALS: BP 144/75
[2019-06-26 08:52] LABS: BG BASE EXCESS 1.2 mmol/L (-2.0-2.0); BG CARBOXYHEMOGLOBIN 0.8 % (0.5-1.5); BG DEOXYHEMOGLOBIN 3.6 % (0.0-5.0); BG FRACTION INSPIRED OXYGEN 21; BG HCO3 ACT 24.9 mmol/L (22.0-26.0); BG METHEMOGLOBIN 0.3 % (0.0-1.5); BG OXYGEN SATURATION 96.4 % (92.0-98.5); BG OXYHEMOGLOBIN 95.3 % (94.0-97.0); BG PCO2 36.7 mmHg (35.0-45.0); BG PO2 88.1 mmHg (75.0-100.0); BG SAMPLE SITE RIGHT RADIAL; BG TOTAL HEMOGLOBIN 13.9 g/dL (12.0-18.0); BG VENT MODE ROOM AIR
[2019-06-26] MEDS: FOLIC ACID 1MG TABLET PO SCH (09:07)
[2019-06-26] MEDS: SULFAMETHOXAZOLE/TRIMETHOPRIM 800/160MG TABLET PO SCH (09:07)
[2019-06-26] MEDS: LOSARTAN POTASSIUM 50 MG TABLET PO SCH (09:08)
[2019-06-26] MEDS: AMLODIPINE 10MG TABLET PO SCH (09:08)
[2019-06-26] MEDS: FAMOTIDINE 40MG TABLET PO SCH (09:08)
[2019-06-26] MEDS: ASPIRIN 81MG TABLET PO SCH (09:08)
[2019-06-26] MEDS: INSULIN GLARGINE UD 100 UNITS/ML SYR SUBCUT SCH ×2 (09:09→10:21)
[2019-06-26] MEDS: ACETAMINOPHEN 325MG TABLET PO PRN (10:20)
[2019-06-26 12:00] VITALS: BP 130/72
[2019-06-26 17:01] VITALS: BP 130/72
== END 2019-06-26 18:15 | disposition home or self-care (01) | DRG 190 ==
LOC: ER 07:59 → EDBEDREQTM 11:21 → EDBEDREQ 11:21 → ENRESERV 21:06 → 5WST 22:16
PROVIDERS: ADMIT Internal Medicine; ATTEND Internal Medicine
DX: J44.1 Chronic obstructive pulmonary disease with (acute) exacerbation (principal); J96.21 Acute and chronic respiratory failure with hypoxia; E11.9 Type 2 diabetes mellitus without complications; I10 Essential (primary) hypertension; F32.9 Major depressive disorder, single episode, unspecified; F41.9 Anxiety disorder, unspecified; Z88.5 Allergy status to narcotic agent; Z79.899 Other long term (current) drug therapy
CPT/HCPCS: 36415; 36600; 70490; 71045; 80048; 80053; 80061; 80305; 81003; 82375; 82550; 82553; 82805; 82962; 83880; 84484; 85025; 87077; 87186; 93005; 93970; 94640; 96365; 97162; 99291; J1650; J1815; J2920; J2930; J3475

== ENCOUNTER 2019-07-17 07:49 | Inpatient (IN) | payer MEDICARE, OTHER ==
[~2019-07-17] VITALS: Ht 167.6 cm; Wt 60.5 kg
[~2019-07-17 07:49] MED LIST changes: +MONT10TA24 PO; -MONT10TA26 PO
[2019-07-17] MEDS ORDERED: IPRATROPIUM BROMIDE (0.02%) 0.5MG/2.5ML NEB HHN STA (08:18)
[2019-07-17] MEDS ORDERED: ALBUTEROL (0.083%) 2.5MG/3ML NEB HHN STA (08:18)
[2019-07-17] MEDS ORDERED: MAGNESIUM 2 G PREMIX 50 ML IV STA (08:18)
[2019-07-17] MEDS ORDERED: METHYLPREDNISOLONE SOD SUCC 125 MG/2 ML VIAL IV STA (08:18)
[2019-07-17 09:06] LABS: BASOPHILS % 1.2 % (0.0-2.0); HEMATOCRIT. 41.3 % (36.0-48.0); HEMOGLOBIN. 13.7 g/dL (12.0-16.0); MEAN CORPUSCULAR HEMOGLOBIN 33.8 pg (28.0-32.0); MEAN PLATELET VOLUME 8.8 fl (7.4-10.4); MONOCYTES % 8.5 % (2.0-8.0); NEUTROPHILS % 49.3 % (40.0-76.0); PLATELET 128 x1000/uL (130-400); RED BLOOD CELL COUNT 4.05 mill/uL (4.2-5.4); RED CELL DISTRIBUTION WIDTH 14.6 % (11.6-14.6)
[2019-07-17 09:13] LABS: CHLORIDE 103 mEq/L (98-107)
[2019-07-17 09:17] LABS: ETHANOL BLOOD < 10 mg/dL
[2019-07-17] MEDS ORDERED: ASPIRIN 81MG TABLET PO ONE (10:00)
[2019-07-17] MEDS ORDERED: GUAIFENESIN 200MG/10ML SUGAR FREE UDC PO PRN (10:15)
[2019-07-17] MEDS ORDERED: HYDROCODONE/ACETAMINOPHEN 10/325MG TABLET PO PRN (10:15)
[2019-07-17] MEDS ORDERED: DOCUSATE SODIUM 100MG CAPSULE PO PRN (10:15)
[2019-07-17] MEDS ORDERED: IPRATROPIUM/ALBUTEROL 0.5-3(2.5)MG/3ML NEB NEB PRN (10:15)
[2019-07-17] MEDS ORDERED: CLONIDINE 0.1MG TABLET PO PRN (10:15)
[2019-07-17] MEDS ORDERED: LORAZEPAM 2MG/ML CPJ IV PRN (10:15)
[2019-07-17] MEDS ORDERED: MAGNESIUM/ALUMINUM HYDROXIDE/SIMETHICONE 30ML UDC PO PRN (10:15)
[2019-07-17] MEDS ORDERED: DIPHENHYDRAMINE 50MG/ML VIAL IV PRN (10:15)
[2019-07-17] MEDS ORDERED: NA PHOS,M-B/NA PHOS,DI-BA ENEMA 118ML PR PRN (10:15)
[2019-07-17] MEDS ORDERED: ONDANSETRON HCL 4MG/2ML INJ IV PRN (10:15)
[2019-07-17] MEDS ORDERED: LORAZEPAM 0.5MG TABLET PO ONE (10:30)
[2019-07-17] MEDS ORDERED: LEVOFLOXACIN 500MG PREMIX 100 ML IV NR (10:45)
[2019-07-17 11:28] LABS: *AMPHETAMINES SCREEN URINE NEGATIVE (NEGATIVE); *BARBITURATES SCREEN URINE NEGATIVE (NEGATIVE); *BENZODIAZEPINES SCREEN URINE NEGATIVE (NEGATIVE)
[2019-07-17 11:29] LABS: *COCAINE SCREEN URINE NEGATIVE (NEGATIVE); METHADONE URINE SCREEN NEGATIVE (NEGATIVE); OPIATES URINE SCREEN NEGATIVE (NEGATIVE)
[2019-07-17 11:30] LABS: CANNABINOID URINE SCREEN NEGATIVE (NEGATIVE); PHENCYCLIDINE URINE SCREEN NEGATIVE (NEGATIVE)
[2019-07-17] MEDS ORDERED: ACETYLCYSTEINE 200MG/ML 20% VIAL 30ML PO ONE (12:00)
[2019-07-17 13:00] VITALS: BP 158/88
[2019-07-17 13:30] VITALS: BP 158/88
[2019-07-17 16:29] VITALS: BP 124/79
[2019-07-17] MEDS: ENOXAPARIN 40MG/0.4ML SYR SUBCUT SCH (17:37)
[2019-07-17] MEDS: ACETAMINOPHEN 325MG TABLET PO PRN (17:40)
[2019-07-17] MEDS ORDERED: METHYLPREDNISOLONE SOD SUCC 125 MG/2 ML VIAL IV SCH (18:00)
[2019-07-17] MEDS ORDERED: LORAZEPAM 0.5MG TABLET PO PRN (18:00)
[2019-07-17] MEDS ORDERED: DEXTROSE 50% WATER 50ML SYRINGE IV PRN (18:00)
[2019-07-17 18:11] LABS: CHLORIDE 97 mEq/L (98-107)
[2019-07-17] MEDS: INSULIN LISPRO 100 UNITS/ML SUBCUT SCH ×2 (18:35→21:04)
[2019-07-17] MEDS: METHYLPREDNISOLONE SOD SUCC 40 MG/ML VIAL IV SCH (18:37)
[2019-07-17] MEDS ORDERED: INSULIN LISPRO 100 UNITS/ML SUBCUT NR (19:15)
[2019-07-17 20:00] VITALS: BP 165/86
[2019-07-17] MEDS: BLOOD SUGAR DIAGNOSTIC STRIP TEST SCH (21:00)
[2019-07-17] MEDS: FLUTICASONE PROPIONATE 50MCG/SPRAY BOTTLE BOTHNSTRLS SCH (21:03)
[2019-07-17] MEDS: FAMOTIDINE 20MG TABLET PO SCH (21:03)
[2019-07-17] MEDS: QUETIAPINE FUMARATE 25MG TABLET PO SCH (21:03)
[2019-07-17] MEDS: IPRATROPIUM/ALBUTEROL 0.5-3(2.5)MG/3ML NEB HHN SCH (21:17)
[2019-07-17] MEDS: BUDESONIDE 0.5MG/2ML NEB HHN SCH (21:17)
[2019-07-17] MEDS ORDERED: INSULIN GLARGINE UD 100 UNITS/ML SYR SUBCUT SCH ×2 (22:00)
[2019-07-17] MEDS: INSULIN GLARGINE UD 100 UNITS/ML SYR SUBCUT SCH (22:25)
[2019-07-18] VITALS: BP 160/95
[2019-07-18] MEDS: IPRATROPIUM/ALBUTEROL 0.5-3(2.5)MG/3ML NEB HHN SCH ×6 (00:03→20:00)
[2019-07-18] MEDS: ACETYLCYSTEINE 100MG/ML 10% VIAL 4ML INH SCH ×3 (00:03→15:30)
[2019-07-18] MEDS: ACETAMINOPHEN 325MG TABLET PO PRN (00:05)
[2019-07-18] MEDS: METHYLPREDNISOLONE SOD SUCC 40 MG/ML VIAL IV SCH ×3 (01:38→17:21)
[2019-07-18 04:00] VITALS: BP 154/94
[2019-07-18] MEDS: BLOOD SUGAR DIAGNOSTIC STRIP TEST SCH ×4 (06:20→20:20)
[2019-07-18 06:38] LABS: BASOPHILS % 0.5 % (0.0-2.0); HEMATOCRIT. 43.3 % (36.0-48.0); HEMOGLOBIN. 14.3 g/dL (12.0-16.0); LYMPHOCYTES % 7.7 % (20.0-50.0); MEAN CORPUSCULAR HEMOGLOBIN 33.7 pg (28.0-32.0); MEAN CORPUSCULAR VOLUME 101.9 fL (81.0-99.0); MEAN PLATELET VOLUME 8.7 fl (7.4-10.4); MONOCYTES % 2.5 % (2.0-8.0); NEUTROPHILS % 89.3 % (40.0-76.0); PLATELET 165 x1000/uL (130-400); RED BLOOD CELL COUNT 4.25 mill/uL (4.2-5.4)
[2019-07-18] MEDS: BUDESONIDE 0.5MG/2ML NEB HHN SCH ×2 (07:33→20:00)
[2019-07-18] MEDS: INSULIN LISPRO 100 UNITS/ML SUBCUT SCH ×4 (07:50→20:45)
[2019-07-18 08:00] VITALS: BP 185/98
[2019-07-18 08:02] LABS: CHLORIDE 102 mEq/L (98-107)
[2019-07-18 08:15] LABS: LDL CHOLESTEROL 74 mg/dL (5-100); T4 FREE 0.81 ng/dL (0.76-1.46)
[2019-07-18] MEDS: FLUTICASONE PROPIONATE 50MCG/SPRAY BOTTLE BOTHNSTRLS SCH ×2 (08:34→20:45)
[2019-07-18] MEDS: LORATADINE 10MG TABLET PO SCH (08:35)
[2019-07-18] MEDS: FOLIC ACID/VITAMIN B COMP W-C TABLET PO SCH (08:35)
[2019-07-18] MEDS: AMLODIPINE 10MG TABLET PO SCH (08:35)
[2019-07-18] MEDS: QUETIAPINE FUMARATE 25MG TABLET PO SCH (08:36)
[2019-07-18] MEDS: FAMOTIDINE 20MG TABLET PO SCH ×2 (08:36→20:45)
[2019-07-18] MEDS: LOSARTAN POTASSIUM 50 MG TABLET PO SCH (08:36)
[2019-07-18] MEDS: ASPIRIN 81MG EC TABLET PO SCH (08:36)
[2019-07-18] MEDS: LEVOFLOXACIN 500MG PREMIX 100 ML IV SCH (09:27)
[2019-07-18 09:31] LABS: HDL CHOLESTEROL 160 mg/dL (40-59)
[2019-07-18] MEDS: THIAMINE HCL 100MG TABLET PO SCH (10:16)
[2019-07-18] MEDS: INSULIN GLARGINE UD 100 UNITS/ML SYR SUBCUT SCH ×2 (10:17→21:05)
[2019-07-18 12:00] VITALS: BP 154/88
[2019-07-18 16:00] VITALS: BP 129/77
[2019-07-18] MEDS: ENOXAPARIN 40MG/0.4ML SYR SUBCUT SCH (16:22)
[2019-07-19] MEDS: IPRATROPIUM/ALBUTEROL 0.5-3(2.5)MG/3ML NEB HHN SCH ×3 (00:08→08:34)
[2019-07-19] MEDS: METHYLPREDNISOLONE SOD SUCC 40 MG/ML VIAL IV SCH ×2 (02:45→09:49)
[2019-07-19] MEDS: BLOOD SUGAR DIAGNOSTIC STRIP TEST SCH (06:24)
[2019-07-19] MEDS: INSULIN LISPRO 100 UNITS/ML SUBCUT SCH (07:16)
[2019-07-19] MEDS: AMLODIPINE 10MG TABLET PO SCH (08:02)
[2019-07-19] MEDS: FLUTICASONE PROPIONATE 50MCG/SPRAY BOTTLE BOTHNSTRLS SCH (08:02)
[2019-07-19] MEDS: FOLIC ACID/VITAMIN B COMP W-C TABLET PO SCH (08:02)
[2019-07-19] MEDS: THIAMINE HCL 100MG TABLET PO SCH (08:02)
[2019-07-19] MEDS: LOSARTAN POTASSIUM 50 MG TABLET PO SCH (08:02)
[2019-07-19] MEDS: FAMOTIDINE 20MG TABLET PO SCH (08:03)
[2019-07-19] MEDS: ASPIRIN 81MG EC TABLET PO SCH (08:03)
[2019-07-19] MEDS: LORATADINE 10MG TABLET PO SCH (08:03)
[2019-07-19] MEDS: BUDESONIDE 0.5MG/2ML NEB HHN SCH (08:34)
[2019-07-19] MEDS: QUETIAPINE FUMARATE 25MG TABLET PO SCH (08:51)
[2019-07-19 08:52] VITALS: BP 132/72
[2019-07-19] MEDS: LEVOFLOXACIN 500MG PREMIX 100 ML IV SCH (09:00)
[2019-07-19] MEDS: INSULIN GLARGINE UD 100 UNITS/ML SYR SUBCUT SCH (09:49)
== END 2019-07-19 10:25 | disposition home or self-care (01) | DRG 189 ==
LOC: ER 07:49 → 6WST 09:58 → EDBEDREQ 10:01 → ENRESERV 11:45
PROVIDERS: ADMIT Internal Medicine; ATTEND Internal Medicine
DX: J96.00 Acute respiratory failure, unspecified whether with hypoxia or hypercapnia (principal); J44.1 Chronic obstructive pulmonary disease with (acute) exacerbation; J98.11 Atelectasis; F10.10 Alcohol abuse, uncomplicated; F17.210 Nicotine dependence, cigarettes, uncomplicated; F41.0 Panic disorder [episodic paroxysmal anxiety]; I10 Essential (primary) hypertension; E11.9 Type 2 diabetes mellitus without complications; I25.10 Atherosclerotic heart disease of native coronary artery without angina pectoris; Z79.4 Long term (current) use of insulin; Z79.51 Long term (current) use of inhaled steroids; Z87.440 Personal history of urinary (tract) infections; Z88.6 Allergy status to analgesic agent; Z79.899 Other long term (current) drug therapy
CPT/HCPCS: 36415; 71045; 80048; 80053; 80061; 80305; 80320; 82962; 83880; 84439; 84443; 84484; 85025; 93005; 94640; 99291; J1650; J1815; J1956; J2060; J2920; J2930; J3475; J7608; J7611; J7620; J7626; G0480

== ENCOUNTER 2019-07-21 09:10 | Inpatient (IN) | payer MEDICARE, OTHER ==
[2019-07-21] VITALS (45 sets, daily range): BP systolic 78–149; BP diastolic 46–90
[~2019-07-21] VITALS: Ht 162.6 cm; Wt 65.3 kg
[~2019-07-21 09:10] MED LIST changes: -MONT10TA24 PO; +MONT10TA26 PO
[2019-07-21] MEDS ORDERED: ETOMIDATE 2MG/ML 10ML VIAL IV ONE ×2 (09:12→09:30)
[2019-07-21] MEDS ORDERED: SUCCINYLCHOLINE CHLORIDE 200MG/10ML IV ONE ×2 (09:12→09:30)
[2019-07-21] MEDS ORDERED: METHYLPREDNISOLONE SOD SUCC 125 MG/2 ML VIAL IV STA (09:16)
[2019-07-21] MEDS ORDERED: ALBUTEROL (0.083%) 2.5MG/3ML NEB HHN STA (09:16)
[2019-07-21] MEDS ORDERED: IPRATROPIUM BROMIDE (0.02%) 0.5MG/2.5ML NEB HHN STA (09:16)
[2019-07-21] MEDS ORDERED: MAGNESIUM 2 G PREMIX 50 ML IV STA (09:16)
[2019-07-21] MEDS ORDERED: FENTANYL CITRATE/PF 500 MCG in SODIUM CHLORIDE 0.9% 40 ML IV PRN ×2 (09:30→09:45)
[2019-07-21] MEDS ORDERED: MIDAZOLAM HCL 50 MG in DEXTROSE 5% WATER 40 ML IV ONE (09:30)
[2019-07-21] MEDS ORDERED: FENTANYL CITRATE/PF 50MCG/ML 2ML VIAL IV ONE (09:30)
[2019-07-21] MEDS ORDERED: DEXTROSE 50% WATER 50ML SYRINGE IV ONE ×3 (09:40→09:45)
[2019-07-21 09:42] LABS: BASOPHILS % 0.5 % (0.0-2.0); EOSINOPHILS % 0.6 % (0.0-5.0); HEMATOCRIT. 40.9 % (36.0-48.0); LYMPHOCYTES % 46.1 % (20.0-50.0); MEAN CORPUSCULAR HEMOGLOBIN 34.3 pg (28.0-32.0); MEAN PLATELET VOLUME 8.8 fl (7.4-10.4); MONOCYTES % 7.1 % (2.0-8.0); NEUTROPHILS % 45.7 % (40.0-76.0); PLATELET 147 x1000/uL (130-400); RED BLOOD CELL COUNT 4.08 mill/uL (4.2-5.4); RED CELL DISTRIBUTION WIDTH 15.3 % (11.6-14.6)
[2019-07-21 09:49] LABS: CHLORIDE 105 mEq/L (98-107)
[2019-07-21 09:51] LABS: BG BASE EXCESS 6.3 mmol/L (-2.0-2.0); BG DEOXYHEMOGLOBIN 1.2 % (0.0-5.0); BG FRACTION INSPIRED OXYGEN 100; BG HCO3 ACT 32.1 mmol/L (22.0-26.0); BG METHEMOGLOBIN 0.3 % (0.0-1.5); BG OXYGEN SATURATION 98.8 % (92.0-98.5); BG OXYHEMOGLOBIN 98.5 % (94.0-97.0); BG PCO2 51.4 mmHg (35.0-45.0); BG PH 7.413 (7.350-7.450); BG PO2 548.5 mmHg (75.0-100.0); BG SAMPLE SITE RIGHT BRACHIAL; BG TIDAL VOLUME(mL) 500 mL; BG VENT MODE VENT - A/C; BG VENT RATE 12 set
[2019-07-21] MEDS ORDERED: NOREPINEPHRINE 4MG/250ML PMX 250 ML IV ONE (11:14)
[2019-07-21] MEDS ORDERED: NOREPINEPHRINE 4MG/250ML PMX 250 ML IV STA (11:24)
[2019-07-21] MEDS ORDERED: DILTIAZEM HCL 125 MG in DEXT 5% WATER 100 ML IV ONE (11:30)
[2019-07-21] MEDS ORDERED: DOCUSATE SODIUM 100MG CAPSULE PO PRN (11:45)
[2019-07-21] MEDS ORDERED: METHYLPREDNISOLONE SOD SUCC 125 MG/2 ML VIAL IV SCH (11:45)
[2019-07-21] MEDS ORDERED: GUAIFENESIN 200MG/10ML SUGAR FREE UDC PO PRN (11:45)
[2019-07-21] MEDS ORDERED: HYDROCODONE/ACETAMINOPHEN 5/325MG TABLET PO PRN (11:45)
[2019-07-21] MEDS ORDERED: MAGNESIUM/ALUMINUM HYDROXIDE/SIMETHICONE 30ML UDC PO PRN (11:45)
[2019-07-21] MEDS ORDERED: NA PHOS,M-B/NA PHOS,DI-BA ENEMA 118ML PR PRN (11:45)
[2019-07-21] MEDS ORDERED: LORAZEPAM 2MG/ML CPJ IV PRN (11:45)
[2019-07-21] MEDS ORDERED: IPRATROPIUM/ALBUTEROL 0.5-3(2.5)MG/3ML NEB NEB PRN (11:45)
[2019-07-21] MEDS ORDERED: CLONIDINE 0.1MG TABLET PO PRN (11:45)
[2019-07-21] MEDS ORDERED: ENOXAPARIN 40MG/0.4ML SYR SUBCUT SCH (11:45)
[2019-07-21] MEDS ORDERED: PHENYLEPHRINE 40 MG in DEXT 5% WATER 246 ML IV PRN (13:00)
[2019-07-21] MEDS ORDERED: ASPIRIN 81MG EC TABLET PO SCH (13:00)
[2019-07-21] MEDS: METHYLPREDNISOLONE SOD SUCC 125 MG/2 ML VIAL IV SCH ×2 (13:43→17:33)
[2019-07-21] MEDS: PROPOFOL 10MG/ML 100ML 100 ML IV PRN ×2 (13:45→20:31)
[2019-07-21] MEDS: DEXT 5%/0.45% NACL 1000ML 1,000 ML IV SCH (13:48)
[2019-07-21] MEDS ORDERED: VANCOMYCIN 1250MG in DEXTROSE 5% WATER 250ML IV SCH (14:00)
[2019-07-21] MEDS: PIPERACILLIN/TAZOBACTAM 3.375 G in DEXT 5% WATER 100 ML IV SCH ×2 (15:13→20:43)
[2019-07-21] MEDS ORDERED: DEXTROSE 50% WATER 50ML SYRINGE IV PRN ×2 (15:15→17:45)
[2019-07-21] MEDS: IPRATROPIUM BROMIDE (0.02%) 0.5MG/2.5ML NEB HHN SCH ×3 (16:15→23:48)
[2019-07-21] MEDS: BLOOD SUGAR DIAGNOSTIC STRIP TEST SCH ×4 (16:20→22:00)
[2019-07-21 17:29] LABS: CHLORIDE 104 mEq/L (98-107)
[2019-07-21 17:39] LABS: D-DIMER 3.63 mg/L FEU (<0.50); PROTHROMBIN TIME 10.4 sec (9.6-11.0)
[2019-07-21] MEDS: ENOXAPARIN 80MG/0.8ML SYR SUBCUT SCH (19:17)
[2019-07-21] MEDS: HYDROMORPHONE HCL/PF 2MG/ML CPJ IV PRN (20:43)
[2019-07-21] MEDS ORDERED: IOHEXOL-300 100 ML BOTTLE ONE (22:57)
[2019-07-22] VITALS (101 sets, daily range): BP systolic 83–210; BP diastolic 50–131
[2019-07-22] MEDS: METHYLPREDNISOLONE SOD SUCC 125 MG/2 ML VIAL IV SCH ×5 (00:39→23:03)
[2019-07-22] MEDS: VANCOMYCIN 750 MG PREMIX 150 ML IV SCH ×3 (00:39→20:48)
[2019-07-22] MEDS: BLOOD SUGAR DIAGNOSTIC STRIP TEST SCH ×6 (02:00→21:00)
[2019-07-22] MEDS: PIPERACILLIN/TAZOBACTAM 3.375 G in DEXT 5% WATER 100 ML IV SCH ×4 (02:57→20:08)
[2019-07-22] MEDS: PROPOFOL 10MG/ML 100ML 100 ML IV PRN ×3 (03:09→21:10)
[2019-07-22] MEDS: DEXT 5%/0.45% NACL 1000ML 1,000 ML IV SCH ×2 (03:20→16:31)
[2019-07-22] MEDS: IPRATROPIUM BROMIDE (0.02%) 0.5MG/2.5ML NEB HHN SCH ×7 (04:00→23:56)
[2019-07-22] MEDS: ENOXAPARIN 80MG/0.8ML SYR SUBCUT SCH ×2 (05:41→18:33)
[2019-07-22 06:21] LABS: BASOPHILS % 0.1 % (0.0-2.0); CHLORIDE 105 mEq/L (98-107); HEMATOCRIT. 36.2 % (36.0-48.0); HEMOGLOBIN. 12.2 g/dL (12.0-16.0); LYMPHOCYTES % 7.3 % (20.0-50.0); MEAN CORPUSCULAR HEMOGLOBIN 34.5 pg (28.0-32.0); MEAN CORPUSCULAR VOLUME 101.9 fL (81.0-99.0); MEAN PLATELET VOLUME 9.6 fl (7.4-10.4); MONOCYTES % 5.3 % (2.0-8.0); NEUTROPHILS % 87.3 % (40.0-76.0); PLATELET 152 x1000/uL (130-400); RED BLOOD CELL COUNT 3.55 mill/uL (4.2-5.4); RED CELL DISTRIBUTION WIDTH 15.2 % (11.6-14.6)
[2019-07-22 06:33] LABS: LDL CHOLESTEROL 61 mg/dL (5-100)
[2019-07-22 06:34] LABS: HDL CHOLESTEROL 105 mg/dL (40-59)
[2019-07-22] MEDS: HYDROMORPHONE HCL/PF 2MG/ML CPJ IV PRN (06:40)
[2019-07-22 09:29] LABS: BG BASE EXCESS 0.1 mmol/L (-2.0-2.0); BG CARBOXYHEMOGLOBIN 0.2 % (0.5-1.5); BG DEOXYHEMOGLOBIN 1.7 % (0.0-5.0); BG FRACTION INSPIRED OXYGEN 40; BG HCO3 ACT 23.6 mmol/L (22.0-26.0); BG METHEMOGLOBIN 0.3 % (0.0-1.5); BG OXYGEN SATURATION 98.3 % (92.0-98.5); BG OXYHEMOGLOBIN 97.8 % (94.0-97.0); BG PCO2 34.5 mmHg (35.0-45.0); BG PH 7.453 (7.350-7.450); BG SAMPLE SITE RIGHT RADIAL; BG TIDAL VOLUME(mL) 500 mL; BG TOTAL HEMOGLOBIN 12.6 g/dL (12.0-18.0); BG VENT MODE VENT - A/C; BG VENT RATE 12 set
[2019-07-22] MEDS: ASPIRIN 81MG TABLET NG SCH (09:47)
[2019-07-22] MEDS ORDERED: DEXTROSE 50% WATER 50ML SYRINGE IV PRN (10:30)
[2019-07-22] MEDS ORDERED: CHLORDIAZEPOXIDE 25MG CAPSULE PO SCH (12:00)
[2019-07-22] MEDS: INSULIN LISPRO 100 UNITS/ML SUBCUT SCH ×3 (12:31→21:03)
[2019-07-22 12:40] LABS: BG BASE EXCESS -0.1 mmol/L (-2.0-2.0); BG CARBOXYHEMOGLOBIN 0.4 % (0.5-1.5); BG DEOXYHEMOGLOBIN 2.1 % (0.0-5.0); BG FRACTION INSPIRED OXYGEN 40; BG HCO3 ACT 22.2 mmol/L (22.0-26.0); BG METHEMOGLOBIN 0.3 % (0.0-1.5); BG OXYGEN SATURATION 97.9 % (92.0-98.5); BG OXYHEMOGLOBIN 97.2 % (94.0-97.0); BG PCO2 29.3 mmHg (35.0-45.0); BG PH 7.497 (7.350-7.450); BG PRESSURE SUPPORT 8; BG SAMPLE SITE RIGHT RADIAL; BG VENT MODE VENT - CPAP
[2019-07-22] MEDS ORDERED: IPRATROPIUM BROMIDE (0.02%) 0.5MG/2.5ML NEB ONE (13:43)
[2019-07-22] MEDS ORDERED: RACEPINEPHRINE 2.25% 0.5ML NEB VIAL ONE (13:43)
[2019-07-22] MEDS ORDERED: RACEPINEPHRINE 2.25% 0.5ML NEB VIAL HHN PRN (13:45)
[2019-07-22] MEDS ORDERED: QUETIAPINE FUMARATE 50MG TABLET PO SCH (21:00)
[2019-07-22] MEDS: CHLORDIAZEPOXIDE 25MG CAPSULE PO SCH (23:00)
[2019-07-23] VITALS (96 sets, daily range): BP systolic 75–158; BP diastolic 47–99
[2019-07-23] MEDS: INSULIN LISPRO 100 UNITS/ML SUBCUT SCH ×5 (01:00→23:40)
[2019-07-23] MEDS: BLOOD SUGAR DIAGNOSTIC STRIP TEST SCH ×5 (01:00→23:39)
[2019-07-23] MEDS: PIPERACILLIN/TAZOBACTAM 3.375 G in DEXT 5% WATER 100 ML IV SCH ×4 (02:19→19:59)
[2019-07-23] MEDS: IPRATROPIUM BROMIDE (0.02%) 0.5MG/2.5ML NEB HHN SCH ×5 (04:20→20:29)
[2019-07-23] MEDS: PROPOFOL 10MG/ML 100ML 100 ML IV PRN ×4 (04:25→23:05)
[2019-07-23] MEDS: CHLORDIAZEPOXIDE 25MG CAPSULE PO SCH (05:32)
[2019-07-23] MEDS: METHYLPREDNISOLONE SOD SUCC 125 MG/2 ML VIAL IV SCH ×4 (05:42→23:39)
[2019-07-23 05:47] LABS: BASOPHILS % 0.2 % (0.0-2.0); HEMATOCRIT. 37.1 % (36.0-48.0); HEMOGLOBIN. 12.4 g/dL (12.0-16.0); LYMPHOCYTES % 7.1 % (20.0-50.0); MEAN CORPUSCULAR VOLUME 101.8 fL (81.0-99.0); MEAN PLATELET VOLUME 9.3 fl (7.4-10.4); MONOCYTES % 3.9 % (2.0-8.0); NEUTROPHILS % 88.8 % (40.0-76.0); PLATELET 159 x1000/uL (130-400); RED BLOOD CELL COUNT 3.64 mill/uL (4.2-5.4); RED CELL DISTRIBUTION WIDTH 15.3 % (11.6-14.6)
[2019-07-23 05:55] LABS: CHLORIDE 104 mEq/L (98-107)
[2019-07-23] MEDS: ENOXAPARIN 80MG/0.8ML SYR SUBCUT SCH ×2 (06:58→19:08)
[2019-07-23 08:16] LABS: BG BASE EXCESS 2.6 mmol/L (-2.0-2.0); BG CARBOXYHEMOGLOBIN 0.3 % (0.5-1.5); BG DEOXYHEMOGLOBIN 3.6 % (0.0-5.0); BG FRACTION INSPIRED OXYGEN 40; BG HCO3 ACT 26.2 mmol/L (22.0-26.0); BG METHEMOGLOBIN 0.3 % (0.0-1.5); BG OXYGEN SATURATION 96.4 % (92.0-98.5); BG OXYHEMOGLOBIN 95.8 % (94.0-97.0); BG PH 7.468 (7.350-7.450); BG PO2 96.4 mmHg (75.0-100.0); BG SAMPLE SITE RIGHT RADIAL; BG TIDAL VOLUME(mL) 500 mL; BG TOTAL HEMOGLOBIN 12.8 g/dL (12.0-18.0); BG VENT MODE VENT - A/C; BG VENT RATE 12 set
[2019-07-23] MEDS ORDERED: CHLORDIAZEPOXIDE 25MG CAPSULE PO SCH (08:30)
[2019-07-23] MEDS: THIAMINE HCL 100MG TABLET PO SCH (08:52)
[2019-07-23] MEDS: QUETIAPINE FUMARATE 25MG TABLET PO SCH ×2 (08:52→20:00)
[2019-07-23] MEDS: DEXT 5%/0.45% NACL 1000ML 1,000 ML IV SCH (08:52)
[2019-07-23] MEDS: FOLIC ACID 1MG TABLET PO SCH (08:52)
[2019-07-23] MEDS: VANCOMYCIN 750 MG PREMIX 150 ML IV SCH ×2 (08:52→21:16)
[2019-07-23] MEDS: MULTIVITAMINS,THER W-MINERALS TABLET PO SCH (08:53)
[2019-07-23] MEDS: ASPIRIN 81MG TABLET NG SCH (08:53)
[2019-07-23] MEDS: CHLORDIAZEPOXIDE 5 MG CAPSULE PO SCH ×3 (10:21→21:16)
[2019-07-23 16:20] LABS: *BARBITURATES SCREEN URINE NEGATIVE (NEGATIVE); *BENZODIAZEPINES SCREEN URINE PRESUMTIVE POSITIVE (NEGATIVE); *COCAINE SCREEN URINE NEGATIVE (NEGATIVE); CANNABINOID URINE SCREEN NEGATIVE (NEGATIVE)
[2019-07-23 16:21] LABS: OPIATES URINE SCREEN NEGATIVE (NEGATIVE)
[2019-07-23 16:23] LABS: PHENCYCLIDINE URINE SCREEN NEGATIVE (NEGATIVE)
[2019-07-23 16:29] LABS: *AMPHETAMINES SCREEN URINE NEGATIVE (NEGATIVE); METHADONE URINE SCREEN NEGATIVE (NEGATIVE)
[2019-07-23] MEDS: HYDROMORPHONE HCL/PF 2MG/ML CPJ IV PRN (17:09)
[2019-07-24] VITALS (91 sets, daily range): BP systolic 88–157; BP diastolic 46–91
[2019-07-24] MEDS: IPRATROPIUM BROMIDE (0.02%) 0.5MG/2.5ML NEB HHN SCH ×6 (00:48→21:25)
[2019-07-24] MEDS: PIPERACILLIN/TAZOBACTAM 3.375 G in DEXT 5% WATER 100 ML IV SCH ×4 (02:48→20:58)
[2019-07-24] MEDS: DEXT 5%/0.45% NACL 1000ML 1,000 ML IV SCH ×3 (03:55→21:13)
[2019-07-24] MEDS: METHYLPREDNISOLONE SOD SUCC 125 MG/2 ML VIAL IV SCH ×4 (05:27→23:39)
[2019-07-24] MEDS: CHLORDIAZEPOXIDE 5 MG CAPSULE PO SCH ×3 (05:27→21:00)
[2019-07-24] MEDS: BLOOD SUGAR DIAGNOSTIC STRIP TEST SCH ×4 (05:28→23:35)
[2019-07-24] MEDS: INSULIN LISPRO 100 UNITS/ML SUBCUT SCH ×4 (05:28→23:40)
[2019-07-24] MEDS: ENOXAPARIN 80MG/0.8ML SYR SUBCUT SCH ×2 (05:28→19:33)
[2019-07-24 08:13] LABS: BG BASE EXCESS 1.2 mmol/L (-2.0-2.0); BG CARBOXYHEMOGLOBIN 0.3 % (0.5-1.5); BG DEOXYHEMOGLOBIN 2.5 % (0.0-5.0); BG HCO3 ACT 24.6 mmol/L (22.0-26.0); BG METHEMOGLOBIN 0.3 % (0.0-1.5); BG OXYGEN SATURATION 97.5 % (92.0-98.5); BG OXYHEMOGLOBIN 96.9 % (94.0-97.0); BG PCO2 35.4 mmHg (35.0-45.0); BG PO2 116.2 mmHg (75.0-100.0); BG SAMPLE SITE RIGHT RADIAL; BG TIDAL VOLUME(mL) 500 mL; BG TOTAL HEMOGLOBIN 13.4 g/dL (12.0-18.0); BG VENT MODE VENT - A/C; BG VENT RATE 12 set
[2019-07-24] MEDS ORDERED: PANTOPRAZOLE SODIUM 40 MG/VIAL IV SCH (09:00)
[2019-07-24] MEDS: VANCOMYCIN 750 MG PREMIX 150 ML IV SCH ×2 (09:19→23:14)
[2019-07-24] MEDS: FOLIC ACID 1MG TABLET PO SCH (09:20)
[2019-07-24] MEDS: MULTIVITAMINS,THER W-MINERALS TABLET PO SCH (09:20)
[2019-07-24] MEDS: QUETIAPINE FUMARATE 25MG TABLET PO SCH ×2 (09:20→20:58)
[2019-07-24] MEDS: ASPIRIN 81MG TABLET NG SCH (09:20)
[2019-07-24] MEDS: THIAMINE HCL 100MG TABLET PO SCH (09:20)
[2019-07-24] MEDS ORDERED: LIDOCAINE HCL/PF 1% 2ML VIAL ONE (09:49)
[2019-07-24 12:57] LABS: BG BASE EXCESS 1.8 mmol/L (-2.0-2.0); BG CARBOXYHEMOGLOBIN 0.4 % (0.5-1.5); BG CPAP (cmH2O) 0 cm(H2O); BG DEOXYHEMOGLOBIN 2.2 % (0.0-5.0); BG HCO3 ACT 25.5 mmol/L (22.0-26.0); BG METHEMOGLOBIN 0.3 % (0.0-1.5); BG OXYGEN SATURATION 97.8 % (92.0-98.5); BG OXYHEMOGLOBIN 97.1 % (94.0-97.0); BG PH 7.456 (7.350-7.450); BG PO2 129.7 mmHg (75.0-100.0); BG SAMPLE SITE RIGHT RADIAL; BG TOTAL HEMOGLOBIN 13.6 g/dL (12.0-18.0); BG VENT MODE VENT - CPAP
[2019-07-24] MEDS: LORAZEPAM 2MG/ML CPJ IV PRN (14:45)
[2019-07-24] MEDS: METOCLOPRAMIDE HCL 10MG/2ML VIAL IV SCH ×2 (16:44→19:33)
[2019-07-24] MEDS: HYDROMORPHONE HCL/PF 2MG/ML CPJ IV PRN (20:59)
[2019-07-25] VITALS (79 sets, daily range): BP systolic 94–190; BP diastolic 59–98
[2019-07-25] MEDS: HYDROMORPHONE HCL/PF 2MG/ML CPJ IV PRN ×4 (00:30→18:16)
[2019-07-25] MEDS: IPRATROPIUM BROMIDE (0.02%) 0.5MG/2.5ML NEB HHN SCH ×6 (00:58→20:25)
[2019-07-25] MEDS: PIPERACILLIN/TAZOBACTAM 3.375 G in DEXT 5% WATER 100 ML IV SCH ×4 (02:25→20:42)
[2019-07-25] MEDS: BLOOD SUGAR DIAGNOSTIC STRIP TEST SCH ×4 (05:26→23:28)
[2019-07-25] MEDS: METHYLPREDNISOLONE SOD SUCC 125 MG/2 ML VIAL IV SCH (05:50)
[2019-07-25] MEDS: ENOXAPARIN 80MG/0.8ML SYR SUBCUT SCH ×2 (05:51→18:17)
[2019-07-25] MEDS: CHLORDIAZEPOXIDE 5 MG CAPSULE PO SCH ×3 (05:51→21:16)
[2019-07-25] MEDS: INSULIN LISPRO 100 UNITS/ML SUBCUT SCH ×4 (05:52→23:32)
[2019-07-25] MEDS: METOCLOPRAMIDE HCL 10MG/2ML VIAL IV SCH ×3 (08:02→18:16)
[2019-07-25] MEDS: LORAZEPAM 2MG/ML CPJ IV PRN ×2 (08:03→12:37)
[2019-07-25] MEDS: FOLIC ACID 1MG TABLET PO SCH (08:03)
[2019-07-25] MEDS: THIAMINE HCL 100MG TABLET PO SCH (08:03)
[2019-07-25] MEDS: QUETIAPINE FUMARATE 25MG TABLET PO SCH ×2 (08:03→20:41)
[2019-07-25] MEDS: ASPIRIN 81MG TABLET NG SCH (08:03)
[2019-07-25] MEDS: VANCOMYCIN 750 MG PREMIX 150 ML IV SCH ×2 (08:06→21:16)
[2019-07-25] MEDS: MULTIVITAMINS,THER W-MINERALS TABLET PO SCH (08:06)
[2019-07-25 11:00] LABS: CHLORIDE 103 mEq/L (98-107)
[2019-07-25 11:09] LABS: HEMATOCRIT. 42.8 % (36.0-48.0); HEMOGLOBIN. 14.1 g/dL (12.0-16.0); MEAN CORPUSCULAR HEMOGLOBIN 33.7 pg (28.0-32.0); MEAN PLATELET VOLUME 9.5 fl (7.4-10.4); PLATELET 173 x1000/uL (130-400); RED CELL DISTRIBUTION WIDTH 15.1 % (11.6-14.6)
[2019-07-25] MEDS: DEXAMETHASONE 4MG/ML 1ML VIAL IV SCH ×3 (12:36→23:31)
[2019-07-25 15:13] LABS: PLATELET ESTIMATE NORMAL
[2019-07-25] MEDS: INSULIN GLARGINE UD 100 UNITS/ML SYR SUBCUT SCH (23:31)
[2019-07-25] MEDS: DOCUSATE SODIUM SUGAR FREE 100MG/10ML UDC NG PRN (23:31)
[2019-07-26] VITALS (42 sets, daily range): BP systolic 103–158; BP diastolic 56–88
[2019-07-26] MEDS: IPRATROPIUM BROMIDE (0.02%) 0.5MG/2.5ML NEB HHN SCH ×3 (00:32→08:39)
[2019-07-26] MEDS: PIPERACILLIN/TAZOBACTAM 3.375 G in DEXT 5% WATER 100 ML IV SCH ×4 (02:18→22:01)
[2019-07-26 05:28] LABS: BASOPHILS % 0.2 % (0.0-2.0); HEMATOCRIT. 36.4 % (36.0-48.0); HEMOGLOBIN. 12.3 g/dL (12.0-16.0); LYMPHOCYTES % 7.6 % (20.0-50.0); MEAN CORPUSCULAR VOLUME 100.3 fL (81.0-99.0); MEAN PLATELET VOLUME 9.7 fl (7.4-10.4); MONOCYTES % 8.2 % (2.0-8.0); PLATELET 183 x1000/uL (130-400); RED BLOOD CELL COUNT 3.63 mill/uL (4.2-5.4); RED CELL DISTRIBUTION WIDTH 14.9 % (11.6-14.6)
[2019-07-26 05:49] LABS: CHLORIDE 105 mEq/L (98-107)
[2019-07-26] MEDS: BLOOD SUGAR DIAGNOSTIC STRIP TEST SCH ×3 (05:50→17:54)
[2019-07-26] MEDS: DEXAMETHASONE 4MG/ML 1ML VIAL IV SCH ×2 (05:54→12:21)
[2019-07-26] MEDS: CHLORDIAZEPOXIDE 5 MG CAPSULE PO SCH (05:54)
[2019-07-26] MEDS: ENOXAPARIN 80MG/0.8ML SYR SUBCUT SCH ×2 (05:55→17:59)
[2019-07-26] MEDS: INSULIN LISPRO 100 UNITS/ML SUBCUT SCH ×3 (05:56→18:00)
[2019-07-26] MEDS: FOLIC ACID 1MG TABLET PO SCH (08:49)
[2019-07-26] MEDS: MULTIVITAMINS,THER W-MINERALS TABLET PO SCH (08:49)
[2019-07-26] MEDS: ASPIRIN 81MG TABLET NG SCH (08:49)
[2019-07-26] MEDS: QUETIAPINE FUMARATE 25MG TABLET PO SCH ×2 (08:49→22:01)
[2019-07-26] MEDS: THIAMINE HCL 100MG TABLET PO SCH (08:49)
[2019-07-26] MEDS: VANCOMYCIN 750 MG PREMIX 150 ML IV SCH ×2 (08:50→22:01)
[2019-07-26] MEDS: METOCLOPRAMIDE HCL 10MG/2ML VIAL IV SCH ×3 (08:50→17:59)
[2019-07-26] MEDS: LORAZEPAM 2MG/ML CPJ IV PRN (15:13)
[2019-07-26] MEDS: IPRATROPIUM/ALBUTEROL 0.5-3(2.5)MG/3ML NEB HHN SCH ×2 (16:11→20:21)
[2019-07-26] MEDS: DOCUSATE SODIUM SUGAR FREE 100MG/10ML UDC NG PRN (18:03)
[2019-07-26] MEDS: ACETAMINOPHEN 325MG TABLET PO PRN (18:03)
[2019-07-26] MEDS: INSULIN GLARGINE UD 100 UNITS/ML SYR SUBCUT SCH (22:02)
[2019-07-27] VITALS (34 sets, daily range): BP systolic 123–179; BP diastolic 26–96
[2019-07-27] MEDS: BLOOD SUGAR DIAGNOSTIC STRIP TEST SCH ×5 (00:19→23:18)
[2019-07-27] MEDS: INSULIN LISPRO 100 UNITS/ML SUBCUT SCH ×5 (00:20→23:19)
[2019-07-27] MEDS: IPRATROPIUM/ALBUTEROL 0.5-3(2.5)MG/3ML NEB HHN SCH ×4 (01:38→20:29)
[2019-07-27] MEDS: PIPERACILLIN/TAZOBACTAM 3.375 G in DEXT 5% WATER 100 ML IV SCH ×4 (03:37→20:44)
[2019-07-27 05:35] LABS: BASOPHILS % 0.5 % (0.0-2.0); EOSINOPHILS % 0.1 % (0.0-5.0); HEMOGLOBIN. 12.1 g/dL (12.0-16.0); LYMPHOCYTES % 13.2 % (20.0-50.0); MEAN CORPUSCULAR HEMOGLOBIN 34.1 pg (28.0-32.0); MEAN CORPUSCULAR VOLUME 101.3 fL (81.0-99.0); MEAN PLATELET VOLUME 9.8 fl (7.4-10.4); MONOCYTES % 8.6 % (2.0-8.0); NEUTROPHILS % 77.6 % (40.0-76.0); PLATELET 57 x1000/uL (130-400); RED BLOOD CELL COUNT 3.55 mill/uL (4.2-5.4); RED CELL DISTRIBUTION WIDTH 14.8 % (11.6-14.6)
[2019-07-27] MEDS: ENOXAPARIN 80MG/0.8ML SYR SUBCUT SCH (05:36)
[2019-07-27 05:43] LABS: CHLORIDE 103 mEq/L (98-107)
[2019-07-27] MEDS: DEXAMETHASONE 4MG/ML 1ML VIAL IV SCH ×4 (07:14→23:18)
[2019-07-27] MEDS: VANCOMYCIN 750 MG PREMIX 150 ML IV SCH ×2 (08:36→21:26)
[2019-07-27] MEDS: METOCLOPRAMIDE HCL 10MG/2ML VIAL IV SCH ×3 (08:36→17:49)
[2019-07-27] MEDS: LORAZEPAM 2MG/ML CPJ IV PRN ×3 (08:36→21:57)
[2019-07-27] MEDS: QUETIAPINE FUMARATE 25MG TABLET PO SCH ×2 (08:37→20:44)
[2019-07-27] MEDS: FOLIC ACID 1MG TABLET PO SCH (08:37)
[2019-07-27] MEDS: ASPIRIN 81MG TABLET NG SCH (08:37)
[2019-07-27] MEDS: MULTIVITAMINS,THER W-MINERALS TABLET PO SCH (08:37)
[2019-07-27] MEDS: THIAMINE HCL 100MG TABLET PO SCH (08:37)
[2019-07-27] MEDS: CHLORDIAZEPOXIDE 5 MG CAPSULE PO SCH ×3 (10:25→21:26)
[2019-07-27] MEDS: INSULIN GLARGINE UD 100 UNITS/ML SYR SUBCUT SCH (21:26)
[2019-07-28] VITALS (47 sets, daily range): BP systolic 101–188; BP diastolic 52–102
[2019-07-28] MEDS: IPRATROPIUM/ALBUTEROL 0.5-3(2.5)MG/3ML NEB HHN SCH ×4 (02:11→20:22)
[2019-07-28] MEDS: PIPERACILLIN/TAZOBACTAM 3.375 G in DEXT 5% WATER 100 ML IV SCH ×4 (02:20→21:32)
[2019-07-28] MEDS: LORAZEPAM 2MG/ML CPJ IV PRN (04:14)
[2019-07-28] MEDS: CHLORDIAZEPOXIDE 5 MG CAPSULE PO SCH ×3 (05:26→21:32)
[2019-07-28] MEDS: DEXAMETHASONE 4MG/ML 1ML VIAL IV SCH ×3 (05:26→16:59)
[2019-07-28] MEDS: BLOOD SUGAR DIAGNOSTIC STRIP TEST SCH ×3 (05:26→17:04)
[2019-07-28] MEDS: INSULIN LISPRO 100 UNITS/ML SUBCUT SCH ×3 (05:27→17:00)
[2019-07-28 05:46] LABS: BASOPHILS % 0.4 % (0.0-2.0); HEMOGLOBIN. 12.9 g/dL (12.0-16.0); LYMPHOCYTES % 7.7 % (20.0-50.0); MEAN CORPUSCULAR HEMOGLOBIN 33.7 pg (28.0-32.0); MEAN CORPUSCULAR VOLUME 101.6 fL (81.0-99.0); MEAN PLATELET VOLUME 10.9 fl (7.4-10.4); MONOCYTES % 7.2 % (2.0-8.0); NEUTROPHILS % 84.7 % (40.0-76.0); PLATELET 161 x1000/uL (130-400); RED BLOOD CELL COUNT 3.84 mill/uL (4.2-5.4); RED CELL DISTRIBUTION WIDTH 14.9 % (11.6-14.6)
[2019-07-28 05:58] LABS: CHLORIDE 103 mEq/L (98-107)
[2019-07-28] MEDS: FOLIC ACID 1MG TABLET PO SCH (09:18)
[2019-07-28] MEDS: ASPIRIN 81MG TABLET NG SCH (09:19)
[2019-07-28] MEDS: METOCLOPRAMIDE HCL 10MG/2ML VIAL IV SCH ×3 (09:19→16:59)
[2019-07-28] MEDS: THIAMINE HCL 100MG TABLET PO SCH (09:19)
[2019-07-28] MEDS: MULTIVITAMINS,THER W-MINERALS TABLET PO SCH (09:19)
[2019-07-28] MEDS: QUETIAPINE FUMARATE 25MG TABLET PO SCH ×2 (09:19→21:32)
[2019-07-28] MEDS ORDERED: VANCOMYCIN HCL 750 MG in DEXT 5% WATER 250 ML IV SCH (12:00)
[2019-07-28] MEDS: CLONIDINE 0.3MG TABLET PO PRN (12:34)
[2019-07-28] MEDS: ENOXAPARIN 80MG/0.8ML SYR SUBCUT SCH (17:07)
[2019-07-28] MEDS: INSULIN GLARGINE UD 100 UNITS/ML SYR SUBCUT SCH (21:33)
[2019-07-29] VITALS (47 sets, daily range): BP systolic 102–190; BP diastolic 55–120
[2019-07-29] MEDS: BLOOD SUGAR DIAGNOSTIC STRIP TEST SCH ×4 (00:19→17:20)
[2019-07-29] MEDS: DEXAMETHASONE 4MG/ML 1ML VIAL IV SCH ×2 (00:24→05:27)
[2019-07-29] MEDS: INSULIN LISPRO 100 UNITS/ML SUBCUT SCH ×4 (00:25→17:18)
[2019-07-29] MEDS: IPRATROPIUM/ALBUTEROL 0.5-3(2.5)MG/3ML NEB HHN SCH ×2 (01:55→20:31)
[2019-07-29 04:20] LABS: CHLORIDE 105 mEq/L (98-107)
[2019-07-29 04:21] LABS: HEMATOCRIT. 33.5 % (36.0-48.0); HEMOGLOBIN. 11.2 g/dL (12.0-16.0); MEAN CORPUSCULAR HEMOGLOBIN 33.8 pg (28.0-32.0); MEAN CORPUSCULAR VOLUME 101.1 fL (81.0-99.0); MEAN PLATELET VOLUME 10.2 fl (7.4-10.4); RED BLOOD CELL COUNT 3.31 mill/uL (4.2-5.4)
[2019-07-29] MEDS: CHLORDIAZEPOXIDE 5 MG CAPSULE PO SCH ×3 (05:27→21:29)
[2019-07-29] MEDS: ENOXAPARIN 80MG/0.8ML SYR SUBCUT SCH ×2 (05:28→21:31)
[2019-07-29] MEDS: METOCLOPRAMIDE HCL 10MG/2ML VIAL IV SCH ×3 (08:42→16:13)
[2019-07-29] MEDS: QUETIAPINE FUMARATE 25MG TABLET PO SCH ×2 (08:43→21:29)
[2019-07-29] MEDS: THIAMINE HCL 100MG TABLET PO SCH (08:43)
[2019-07-29] MEDS: MULTIVITAMINS,THER W-MINERALS TABLET PO SCH (08:43)
[2019-07-29] MEDS: ASPIRIN 81MG TABLET NG SCH (08:43)
[2019-07-29] MEDS: FOLIC ACID 1MG TABLET PO SCH (08:48)
[2019-07-29] MEDS: ACETAMINOPHEN 325MG TABLET PO PRN ×2 (08:57→14:36)
[2019-07-29] MEDS: IPRATROPIUM BROMIDE (0.02%) 0.5MG/2.5ML NEB HHN PRN ×2 (09:34→16:34)
[2019-07-29 10:48] LABS: PLATELET ESTIMATE 1
[2019-07-29 10:49] LABS: PLATELET 149 x1000/uL (130-400)
[2019-07-29] MEDS: LORAZEPAM 2MG/ML CPJ IV PRN ×2 (11:47→16:14)
[2019-07-29] MEDS: INSULIN GLARGINE UD 100 UNITS/ML SYR SUBCUT SCH (21:29)
[2019-07-30] VITALS (58 sets, daily range): BP systolic 61–187; BP diastolic 15–100
[2019-07-30] MEDS: BLOOD SUGAR DIAGNOSTIC STRIP TEST SCH ×4 (00:35→18:03)
[2019-07-30] MEDS: INSULIN LISPRO 100 UNITS/ML SUBCUT SCH ×4 (00:41→18:00)
[2019-07-30] MEDS: LORAZEPAM 2MG/ML CPJ IV PRN ×2 (01:00→22:12)
[2019-07-30] MEDS: DIPHENHYDRAMINE 50MG/ML VIAL IV PRN (03:45)
[2019-07-30] MEDS: HYDROCODONE/ACETAMINOPHEN 5/325MG TABLET NG PRN ×2 (03:46→14:57)
[2019-07-30] MEDS: IPRATROPIUM/ALBUTEROL 0.5-3(2.5)MG/3ML NEB HHN SCH ×4 (03:52→20:37)
[2019-07-30] MEDS: CHLORDIAZEPOXIDE 5 MG CAPSULE PO SCH ×3 (05:55→22:12)
[2019-07-30] MEDS: METOCLOPRAMIDE HCL 10MG/2ML VIAL IV SCH ×3 (08:13→18:00)
[2019-07-30] MEDS: FOLIC ACID 1MG TABLET PO SCH (08:13)
[2019-07-30] MEDS: ASPIRIN 81MG TABLET NG SCH (08:13)
[2019-07-30] MEDS: THIAMINE HCL 100MG TABLET PO SCH (08:13)
[2019-07-30] MEDS: QUETIAPINE FUMARATE 25MG TABLET PO SCH ×2 (08:13→22:12)
[2019-07-30] MEDS: ENOXAPARIN 80MG/0.8ML SYR SUBCUT SCH (08:13)
[2019-07-30] MEDS: MULTIVITAMINS,THER W-MINERALS TABLET PO SCH (08:13)
[2019-07-30 08:27] LABS: BG BASE EXCESS 6.9 mmol/L (-2.0-2.0); BG CARBOXYHEMOGLOBIN 0.3 % (0.5-1.5); BG DEOXYHEMOGLOBIN 2.5 % (0.0-5.0); BG FRACTION INSPIRED OXYGEN 40; BG METHEMOGLOBIN 0.3 % (0.0-1.5); BG OXYGEN SATURATION 97.5 % (92.0-98.5); BG OXYHEMOGLOBIN 96.9 % (94.0-97.0); BG PCO2 47.7 mmHg (35.0-45.0); BG PH 7.444 (7.350-7.450); BG PO2 109.9 mmHg (75.0-100.0); BG PRESSURE SUPPORT 10; BG SAMPLE SITE RIGHT RADIAL; BG TIDAL VOLUME(mL) 500 mL; BG TOTAL HEMOGLOBIN 11.2 g/dL (12.0-18.0); BG VENT MODE VENT - SIMV; BG VENT RATE 8 set
[2019-07-30] MEDS: CLONIDINE 0.3MG TABLET PO PRN (09:33)
[2019-07-30] MEDS: INSULIN GLARGINE UD 100 UNITS/ML SYR SUBCUT SCH (22:21)
[2019-07-31] VITALS (85 sets, daily range): BP systolic 96–202; BP diastolic 53–106
[2019-07-31] MEDS: BLOOD SUGAR DIAGNOSTIC STRIP TEST SCH ×4 (00:35→18:47)
[2019-07-31] MEDS: IPRATROPIUM/ALBUTEROL 0.5-3(2.5)MG/3ML NEB HHN SCH ×3 (02:20→20:50)
[2019-07-31] MEDS: INSULIN LISPRO 100 UNITS/ML SUBCUT SCH ×4 (05:28→18:52)
[2019-07-31 06:05] LABS: BASOPHILS % 0.5 % (0.0-2.0); EOSINOPHILS % 0.5 % (0.0-5.0); HEMATOCRIT. 31.8 % (36.0-48.0); HEMOGLOBIN. 10.4 g/dL (12.0-16.0); LYMPHOCYTES % 13.3 % (20.0-50.0); MEAN CORPUSCULAR HEMOGLOBIN 33.2 pg (28.0-32.0); MEAN CORPUSCULAR VOLUME 101.9 fL (81.0-99.0); MEAN PLATELET VOLUME 9.8 fl (7.4-10.4); MONOCYTES % 7.2 % (2.0-8.0); NEUTROPHILS % 78.5 % (40.0-76.0); PLATELET 190 x1000/uL (130-400); RED BLOOD CELL COUNT 3.13 mill/uL (4.2-5.4); RED CELL DISTRIBUTION WIDTH 15.1 % (11.6-14.6)
[2019-07-31 06:14] LABS: PARTIAL THROMBOPLASTIN TIME 24.8 sec (23.4-31.0)
[2019-07-31 06:15] LABS: CHLORIDE 104 mEq/L (98-107)
[2019-07-31] MEDS: CHLORDIAZEPOXIDE 5 MG CAPSULE PO SCH ×3 (06:26→21:40)
[2019-07-31] MEDS: LORAZEPAM 2MG/ML CPJ IV PRN ×3 (06:26→21:40)
[2019-07-31] MEDS: QUETIAPINE FUMARATE 25MG TABLET PO SCH ×3 (08:27→21:43)
[2019-07-31] MEDS: METOCLOPRAMIDE HCL 10MG/2ML VIAL IV SCH ×3 (08:27→16:12)
[2019-07-31] MEDS: MULTIVITAMINS,THER W-MINERALS TABLET PO SCH (09:00)
[2019-07-31] MEDS: THIAMINE HCL 100MG TABLET PO SCH (09:00)
[2019-07-31] MEDS: FOLIC ACID 1MG TABLET PO SCH (09:00)
[2019-07-31] MEDS: PANTOPRAZOLE SODIUM 40 MG/VIAL IV SCH ×2 (11:00→21:43)
[2019-07-31] MEDS ORDERED: EPHEDRINE SULFATE 50MG/ML VIAL ONE (12:02)
[2019-07-31] MEDS ORDERED: HYDRALAZINE 20MG/ML VIAL IV NR ×2 (12:45→13:00)
[2019-07-31] MEDS ORDERED: FENTANYL CITRATE/PF 50MCG/ML 2ML VIAL IV PRN (13:00)
[2019-07-31] MEDS: IPRATROPIUM BROMIDE (0.02%) 0.5MG/2.5ML NEB HHN PRN (16:35)
[2019-07-31] MEDS: DIPHENHYDRAMINE 50MG/ML VIAL IV PRN (21:38)
[2019-07-31] MEDS: HYDROMORPHONE HCL/PF 2MG/ML CPJ IV PRN (21:40)
[2019-07-31] MEDS: INSULIN GLARGINE UD 100 UNITS/ML SYR SUBCUT SCH (21:43)
[2019-08-01] VITALS (48 sets, daily range): BP systolic 85–161; BP diastolic 47–90
[2019-08-01] MEDS: BLOOD SUGAR DIAGNOSTIC STRIP TEST SCH ×4 (00:14→18:39)
[2019-08-01] MEDS: INSULIN LISPRO 100 UNITS/ML SUBCUT SCH ×4 (00:40→18:43)
[2019-08-01] MEDS: IPRATROPIUM/ALBUTEROL 0.5-3(2.5)MG/3ML NEB HHN SCH ×4 (02:21→19:37)
[2019-08-01 06:15] LABS: BASOPHILS % 0.4 % (0.0-2.0); EOSINOPHILS % 0.5 % (0.0-5.0); HEMATOCRIT. 30.8 % (36.0-48.0); LYMPHOCYTES % 10.6 % (20.0-50.0); MEAN CORPUSCULAR HEMOGLOBIN 33.1 pg (28.0-32.0); MEAN CORPUSCULAR VOLUME 101.7 fL (81.0-99.0); MEAN PLATELET VOLUME 10.1 fl (7.4-10.4); MONOCYTES % 6.9 % (2.0-8.0); NEUTROPHILS % 81.6 % (40.0-76.0); PLATELET 178 x1000/uL (130-400); RED BLOOD CELL COUNT 3.03 mill/uL (4.2-5.4); RED CELL DISTRIBUTION WIDTH 15.4 % (11.6-14.6)
[2019-08-01] MEDS: CHLORDIAZEPOXIDE 5 MG CAPSULE PO SCH ×3 (07:00→22:16)
[2019-08-01 07:07] LABS: CHLORIDE 106 mEq/L (98-107)
[2019-08-01 07:38] LABS: BG BASE EXCESS 0.3 mmol/L (-2.0-2.0); BG CARBOXYHEMOGLOBIN 0.2 % (0.5-1.5); BG DEOXYHEMOGLOBIN 2.7 % (0.0-5.0); BG HCO3 ACT 24.2 mmol/L (22.0-26.0); BG METHEMOGLOBIN 0.3 % (0.0-1.5); BG OXYGEN SATURATION 97.3 % (92.0-98.5); BG OXYHEMOGLOBIN 96.8 % (94.0-97.0); BG PCO2 36.3 mmHg (35.0-45.0); BG PH 7.442 (7.350-7.450); BG PO2 111.4 mmHg (75.0-100.0); BG SAMPLE SITE RIGHT RADIAL; BG TIDAL VOLUME(mL) 500 mL; BG VENT MODE VENT - SIMV; BG VENT RATE 8 set
[2019-08-01] MEDS: LORAZEPAM 2MG/ML CPJ IV PRN ×3 (08:30→19:42)
[2019-08-01] MEDS ORDERED: ENOXAPARIN 80MG/0.8ML SYR SUBCUT SCH (09:00)
[2019-08-01] MEDS: ASPIRIN 81MG TABLET NG SCH (09:20)
[2019-08-01] MEDS: METOCLOPRAMIDE HCL 10MG/2ML VIAL IV SCH ×3 (09:20→18:44)
[2019-08-01] MEDS: QUETIAPINE FUMARATE 25MG TABLET PO SCH ×2 (09:21→22:16)
[2019-08-01] MEDS: THIAMINE HCL 100MG TABLET PO SCH (09:21)
[2019-08-01] MEDS: FOLIC ACID 1MG TABLET PO SCH (09:21)
[2019-08-01] MEDS: MULTIVITAMINS,THER W-MINERALS TABLET PO SCH (09:21)
[2019-08-01] MEDS: PANTOPRAZOLE SODIUM 40 MG/VIAL IV SCH (09:25)
[2019-08-01] MEDS: DIPHENHYDRAMINE 50MG/ML VIAL IV PRN ×2 (11:38→20:05)
[2019-08-01] MEDS ORDERED: LIDOCAINE HCL/PF 1% 2ML VIAL ONE (12:47)
[2019-08-01] MEDS: HYDROMORPHONE HCL/PF 2MG/ML CPJ IV PRN ×2 (13:37→22:18)
[2019-08-01] MEDS: INSULIN GLARGINE UD 100 UNITS/ML SYR SUBCUT SCH (22:20)
[2019-08-02] VITALS (51 sets, daily range): BP systolic 100–187; BP diastolic 56–141
[2019-08-02] MEDS: DEXT 5%/0.45% NACL 1000ML 1,000 ML IV SCH ×2 (00:32→13:04)
[2019-08-02] MEDS: BLOOD SUGAR DIAGNOSTIC STRIP TEST SCH ×4 (00:33→17:01)
[2019-08-02] MEDS: INSULIN LISPRO 100 UNITS/ML SUBCUT SCH ×4 (00:34→17:24)
[2019-08-02] MEDS: IPRATROPIUM/ALBUTEROL 0.5-3(2.5)MG/3ML NEB HHN SCH ×4 (01:58→20:21)
[2019-08-02 05:48] LABS: BASOPHILS % 0.2 % (0.0-2.0); EOSINOPHILS % 0.9 % (0.0-5.0); HEMATOCRIT. 30.6 % (36.0-48.0); HEMOGLOBIN. 10.3 g/dL (12.0-16.0); MEAN CORPUSCULAR HEMOGLOBIN 34.1 pg (28.0-32.0); MEAN CORPUSCULAR VOLUME 101.7 fL (81.0-99.0); MEAN PLATELET VOLUME 10.3 fl (7.4-10.4); MONOCYTES % 6.6 % (2.0-8.0); NEUTROPHILS % 77.3 % (40.0-76.0); PLATELET 160 x1000/uL (130-400); RED BLOOD CELL COUNT 3.01 mill/uL (4.2-5.4); RED CELL DISTRIBUTION WIDTH 15.4 % (11.6-14.6)
[2019-08-02 06:00] LABS: PARTIAL THROMBOPLASTIN TIME 26.5 sec (23.4-31.0)
[2019-08-02 06:10] LABS: CHLORIDE 106 mEq/L (98-107)
[2019-08-02] MEDS: CHLORDIAZEPOXIDE 5 MG CAPSULE PO SCH ×3 (07:59→22:28)
[2019-08-02] MEDS ORDERED: CEFAZOLIN 1000MG PREMIX 50 ML IV NR (08:00)
[2019-08-02] MEDS: METOCLOPRAMIDE HCL 10MG/2ML VIAL IV SCH ×3 (08:28→17:51)
[2019-08-02] MEDS: QUETIAPINE FUMARATE 25MG TABLET PO SCH ×2 (08:28→23:04)
[2019-08-02] MEDS: MULTIVITAMINS,THER W-MINERALS TABLET PO SCH (08:28)
[2019-08-02] MEDS: THIAMINE HCL 100MG TABLET PO SCH (08:28)
[2019-08-02] MEDS: FOLIC ACID 1MG TABLET PO SCH (08:28)
[2019-08-02] MEDS ORDERED: FENTANYL CITRATE/PF 50MCG/ML 2ML VIAL ONE (10:06)
[2019-08-02] MEDS ORDERED: MIDAZOLAM HCL 5 MG/5 ML VIAL ONE ×2 (10:06→10:52)
[2019-08-02] MEDS ORDERED: MIDAZOLAM HCL 5 MG/5 ML VIAL IV PRN (10:46)
[2019-08-02] MEDS ORDERED: FENTANYL CITRATE/PF 50MCG/ML 2ML VIAL IV PRN (10:47)
[2019-08-02] MEDS: HYDROMORPHONE HCL/PF 2MG/ML CPJ IV PRN (13:04)
[2019-08-02] MEDS ORDERED: BACTERIOSTATIC SODIUM CHLORIDE 0.9% 30ML VIAL IJ ONE (13:58)
[2019-08-02] MEDS: LORAZEPAM 2MG/ML CPJ IV PRN (22:28)
[2019-08-02] MEDS: DIPHENHYDRAMINE 50MG/ML VIAL IV PRN (22:28)
[2019-08-02] MEDS: INSULIN GLARGINE UD 100 UNITS/ML SYR SUBCUT SCH (22:37)
[2019-08-02] MEDS ORDERED: LACTULOSE 20G/30ML UDC PO NR (23:00)
[2019-08-03] VITALS (45 sets, daily range): BP systolic 105–184; BP diastolic 56–127
[2019-08-03] MEDS: BLOOD SUGAR DIAGNOSTIC STRIP TEST SCH ×4 (00:30→17:29)
[2019-08-03] MEDS: INSULIN LISPRO 100 UNITS/ML SUBCUT SCH ×4 (01:05→17:29)
[2019-08-03] MEDS: IPRATROPIUM/ALBUTEROL 0.5-3(2.5)MG/3ML NEB HHN SCH ×4 (01:55→19:54)
[2019-08-03] MEDS: DEXT 5%/0.45% NACL 1000ML 1,000 ML IV SCH (02:52)
[2019-08-03 06:01] LABS: BASOPHILS % 0.6 % (0.0-2.0); EOSINOPHILS % 1.9 % (0.0-5.0); HEMATOCRIT. 28.5 % (36.0-48.0); HEMOGLOBIN. 9.4 g/dL (12.0-16.0); LYMPHOCYTES % 14.1 % (20.0-50.0); MEAN CORPUSCULAR HEMOGLOBIN 33.5 pg (28.0-32.0); MEAN CORPUSCULAR VOLUME 101.3 fL (81.0-99.0); MEAN PLATELET VOLUME 9.9 fl (7.4-10.4); MONOCYTES % 8.8 % (2.0-8.0); NEUTROPHILS % 74.6 % (40.0-76.0); PLATELET 152 x1000/uL (130-400); RED BLOOD CELL COUNT 2.81 mill/uL (4.2-5.4); RED CELL DISTRIBUTION WIDTH 15.1 % (11.6-14.6)
[2019-08-03 06:19] LABS: CHLORIDE 111 mEq/L (98-107)
[2019-08-03] MEDS: CHLORDIAZEPOXIDE 5 MG CAPSULE PO SCH (06:58)
[2019-08-03] MEDS: METOCLOPRAMIDE HCL 10MG/2ML VIAL IV SCH ×3 (08:36→17:29)
[2019-08-03] MEDS: FOLIC ACID 1MG TABLET PO SCH (08:36)
[2019-08-03] MEDS: QUETIAPINE FUMARATE 25MG TABLET PO SCH ×2 (08:36→21:23)
[2019-08-03] MEDS: MULTIVITAMINS,THER W-MINERALS TABLET PO SCH (08:36)
[2019-08-03] MEDS: THIAMINE HCL 100MG TABLET PO SCH (08:39)
[2019-08-03] MEDS: HYDROMORPHONE HCL/PF 2MG/ML CPJ IV PRN ×2 (09:00→14:23)
[2019-08-03] MEDS: LORAZEPAM 2MG/ML CPJ IV PRN (11:44)
[2019-08-03] MEDS: ENOXAPARIN 40MG/0.4ML SYR SUBCUT SCH (14:23)
[2019-08-03] MEDS: DIPHENHYDRAMINE 50MG/ML VIAL IV PRN (17:29)
[2019-08-03] MEDS: INSULIN GLARGINE UD 100 UNITS/ML SYR SUBCUT SCH (21:25)
[2019-08-04] VITALS (39 sets, daily range): BP systolic 93–184; BP diastolic 49–89
[2019-08-04] MEDS: BLOOD SUGAR DIAGNOSTIC STRIP TEST SCH ×4 (00:18→18:45)
[2019-08-04] MEDS: DIPHENHYDRAMINE 50MG/ML VIAL IV PRN ×3 (00:43→21:15)
[2019-08-04] MEDS: HYDROMORPHONE HCL/PF 2MG/ML CPJ IV PRN ×4 (00:44→21:16)
[2019-08-04] MEDS: IPRATROPIUM/ALBUTEROL 0.5-3(2.5)MG/3ML NEB HHN SCH ×4 (01:57→20:47)
[2019-08-04] MEDS: INSULIN LISPRO 100 UNITS/ML SUBCUT SCH ×4 (06:25→19:50)
[2019-08-04] MEDS: FOLIC ACID 1MG TABLET PO SCH (09:23)
[2019-08-04] MEDS: METOCLOPRAMIDE HCL 10MG/2ML VIAL IV SCH ×3 (09:23→16:22)
[2019-08-04] MEDS: MULTIVITAMINS,THER W-MINERALS TABLET PO SCH (09:23)
[2019-08-04] MEDS: THIAMINE HCL 100MG TABLET PO SCH (09:23)
[2019-08-04] MEDS: QUETIAPINE FUMARATE 25MG TABLET PO SCH ×2 (09:23→21:00)
[2019-08-04] MEDS: ACETAMINOPHEN 325MG TABLET PO PRN ×2 (09:23→16:24)
[2019-08-04] MEDS: CLONIDINE 0.3MG TABLET PO PRN (09:53)
[2019-08-04] MEDS ORDERED: LACTULOSE 20G/30ML UDC PO PRN (12:00)
[2019-08-04] MEDS: ENOXAPARIN 40MG/0.4ML SYR SUBCUT SCH (14:45)
[2019-08-04] MEDS: INSULIN GLARGINE UD 100 UNITS/ML SYR SUBCUT SCH (22:00)
[2019-08-05] VITALS (29 sets, daily range): BP systolic 103–185; BP diastolic 48–97
[2019-08-05] MEDS: IPRATROPIUM/ALBUTEROL 0.5-3(2.5)MG/3ML NEB HHN SCH ×2 (02:02→19:48)
[2019-08-05] MEDS: DIPHENHYDRAMINE 50MG/ML VIAL IV PRN (03:00)
[2019-08-05] MEDS: HYDROMORPHONE HCL/PF 2MG/ML CPJ IV PRN ×2 (03:01→13:19)
[2019-08-05] MEDS: INSULIN LISPRO 100 UNITS/ML SUBCUT SCH ×4 (06:00→18:00)
[2019-08-05] MEDS: BLOOD SUGAR DIAGNOSTIC STRIP TEST SCH ×5 (06:00→23:56)
[2019-08-05] MEDS: IPRATROPIUM BROMIDE (0.02%) 0.5MG/2.5ML NEB HHN PRN ×2 (08:23→13:38)
[2019-08-05] MEDS ORDERED: LACTULOSE 20G/30ML UDC PO NR (09:30)
[2019-08-05] MEDS: CLONIDINE 0.3MG TABLET PO PRN (09:53)
[2019-08-05] MEDS: QUETIAPINE FUMARATE 25MG TABLET PO SCH ×2 (09:53→21:00)
[2019-08-05] MEDS: THIAMINE HCL 100MG TABLET PO SCH (09:53)
[2019-08-05] MEDS: FOLIC ACID 1MG TABLET PO SCH (09:53)
[2019-08-05] MEDS: MULTIVITAMINS,THER W-MINERALS TABLET PO SCH (09:53)
[2019-08-05] MEDS: METOCLOPRAMIDE HCL 10MG/2ML VIAL IV SCH ×3 (09:55→17:00)
[2019-08-05 10:06] LABS: HEMOGLOBIN 9.7 g/dL (12.0-16.0); MEAN CORPUSCULAR HEMOGLOBIN 33.6 pg (28.0-32.0); MEAN CORPUSCULAR VOLUME 100.6 fL (81.0-99.0); PLATELET 150 x1000/uL (130-400); RED BLOOD CELL COUNT 2.88 mill/uL (4.2-5.4)
[2019-08-05 10:13] LABS: CHLORIDE 106 mEq/L (98-107)
[2019-08-05] MEDS ORDERED: SORBITOL 70% SOLN 30ML PO SCH (13:45)
[2019-08-05] MEDS: ENOXAPARIN 40MG/0.4ML SYR SUBCUT SCH (15:20)
[2019-08-05] MEDS: INSULIN GLARGINE UD 100 UNITS/ML SYR SUBCUT SCH (21:01)
[2019-08-06] VITALS (60 sets, daily range): BP systolic 94–169; BP diastolic 41–110
[2019-08-06] MEDS: ACETAMINOPHEN 325MG TABLET PO PRN ×2 (00:35→13:17)
[2019-08-06] MEDS: IPRATROPIUM/ALBUTEROL 0.5-3(2.5)MG/3ML NEB HHN SCH ×4 (01:57→20:57)
[2019-08-06] MEDS: BLOOD SUGAR DIAGNOSTIC STRIP TEST SCH ×3 (06:02→17:19)
[2019-08-06] MEDS: INSULIN LISPRO 100 UNITS/ML SUBCUT SCH ×4 (06:15→17:19)
[2019-08-06 06:16] LABS: HEMATOCRIT. 26.1 % (36.0-48.0); HEMOGLOBIN. 8.8 g/dL (12.0-16.0); MEAN CORPUSCULAR HEMOGLOBIN 34.1 pg (28.0-32.0); MEAN CORPUSCULAR VOLUME 100.9 fL (81.0-99.0); MEAN PLATELET VOLUME 10.4 fl (7.4-10.4); PLATELET 126 x1000/uL (130-400); RED BLOOD CELL COUNT 2.59 mill/uL (4.2-5.4); RED CELL DISTRIBUTION WIDTH 15.3 % (11.6-14.6)
[2019-08-06 06:18] LABS: CHLORIDE 106 mEq/L (98-107)
[2019-08-06] MEDS: METOCLOPRAMIDE HCL 10MG/2ML VIAL IV SCH ×3 (09:31→17:18)
[2019-08-06] MEDS: QUETIAPINE FUMARATE 25MG TABLET PO SCH ×2 (09:31→21:00)
[2019-08-06] MEDS: MULTIVITAMINS,THER W-MINERALS TABLET PO SCH (09:31)
[2019-08-06] MEDS: FOLIC ACID 1MG TABLET PO SCH (09:31)
[2019-08-06] MEDS: THIAMINE HCL 100MG TABLET PO SCH (09:31)
[2019-08-06 10:22] LABS: BG BASE EXCESS 1.3 mmol/L (-2.0-2.0); BG CARBOXYHEMOGLOBIN 0.4 % (0.5-1.5); BG DEOXYHEMOGLOBIN 2.1 % (0.0-5.0); BG FRACTION INSPIRED OXYGEN 40; BG HCO3 ACT 24.6 mmol/L (22.0-26.0); BG METHEMOGLOBIN 0.1 % (0.0-1.5); BG OXYGEN SATURATION 97.9 % (92.0-98.5); BG OXYHEMOGLOBIN 97.4 % (94.0-97.0); BG PCO2 32.8 mmHg (35.0-45.0); BG PH 7.493 (7.350-7.450); BG PO2 126.3 mmHg (75.0-100.0); BG PRESSURE SUPPORT 8; BG SAMPLE SITE RIGHT BRACHIAL; BG TOTAL HEMOGLOBIN 6.5 g/dL (12.0-18.0); BG VENT MODE VENT - CPAP
[2019-08-06 10:58] LABS: PLATELET ESTIMATE SLIGHTLY DECREASED
[2019-08-06] MEDS: SORBITOL 70% SOLN 30ML PO SCH ×3 (11:56→12:17)
[2019-08-06] MEDS: ENOXAPARIN 40MG/0.4ML SYR SUBCUT SCH (13:18)
[2019-08-06] MEDS ORDERED: IBUPROFEN 600MG TABLET PO PRN (17:15)
[2019-08-06] MEDS: INSULIN GLARGINE UD 100 UNITS/ML SYR SUBCUT SCH (21:01)
[2019-08-07] VITALS (12 sets, daily range): BP systolic 99–154; BP diastolic 44–76
[2019-08-07] MEDS: METOCLOPRAMIDE HCL 10MG/2ML VIAL IV SCH ×5 (00:12→23:01)
[2019-08-07] MEDS: BLOOD SUGAR DIAGNOSTIC STRIP TEST SCH ×5 (00:13→23:01)
[2019-08-07] MEDS: IPRATROPIUM/ALBUTEROL 0.5-3(2.5)MG/3ML NEB HHN SCH ×4 (02:27→21:53)
[2019-08-07] MEDS: INSULIN LISPRO 100 UNITS/ML SUBCUT SCH ×5 (05:35→23:00)
[2019-08-07] MEDS: FOLIC ACID 1MG TABLET PO SCH (09:44)
[2019-08-07] MEDS: THIAMINE HCL 100MG TABLET PO SCH (09:45)
[2019-08-07] MEDS: QUETIAPINE FUMARATE 25MG TABLET PO SCH ×2 (09:45→20:23)
[2019-08-07] MEDS: MULTIVITAMINS,THER W-MINERALS TABLET PO SCH (09:45)
[2019-08-07] MEDS: ENOXAPARIN 40MG/0.4ML SYR SUBCUT SCH (13:40)
[2019-08-07] MEDS: DIPHENHYDRAMINE 50MG/ML VIAL IV PRN (22:51)
[2019-08-07] MEDS: INSULIN GLARGINE UD 100 UNITS/ML SYR SUBCUT SCH (22:51)
[2019-08-08] VITALS (11 sets, daily range): BP systolic 144–166; BP diastolic 54–99
[2019-08-08] MEDS: IPRATROPIUM/ALBUTEROL 0.5-3(2.5)MG/3ML NEB HHN SCH ×2 (02:55→21:34)
[2019-08-08] MEDS: BLOOD SUGAR DIAGNOSTIC STRIP TEST SCH ×4 (05:37→23:24)
[2019-08-08] MEDS: DIPHENHYDRAMINE 50MG/ML VIAL IV PRN (05:38)
[2019-08-08] MEDS: METOCLOPRAMIDE HCL 10MG/2ML VIAL IV SCH ×4 (05:38→23:24)
[2019-08-08] MEDS: INSULIN LISPRO 100 UNITS/ML SUBCUT SCH ×4 (05:49→23:36)
[2019-08-08] MEDS: DOCUSATE SODIUM SUGAR FREE 100MG/10ML UDC NG PRN (05:50)
[2019-08-08] MEDS: MULTIVITAMINS,THER W-MINERALS TABLET PO SCH (08:45)
[2019-08-08] MEDS: QUETIAPINE FUMARATE 25MG TABLET PO SCH ×2 (08:45→20:42)
[2019-08-08] MEDS: THIAMINE HCL 100MG TABLET PO SCH (08:45)
[2019-08-08] MEDS: FOLIC ACID 1MG TABLET PO SCH (08:45)
[2019-08-08] MEDS: IPRATROPIUM BROMIDE (0.02%) 0.5MG/2.5ML NEB HHN PRN ×2 (09:01→17:30)
[2019-08-08] MEDS: ENOXAPARIN 40MG/0.4ML SYR SUBCUT SCH (14:00)
[2019-08-08] MEDS: INSULIN GLARGINE UD 100 UNITS/ML SYR SUBCUT SCH (23:25)
[2019-08-09] VITALS (10 sets, daily range): BP systolic 84–186; BP diastolic 45–99
[2019-08-09] MEDS: IPRATROPIUM/ALBUTEROL 0.5-3(2.5)MG/3ML NEB HHN SCH ×2 (02:46→20:28)
[2019-08-09] MEDS: BLOOD SUGAR DIAGNOSTIC STRIP TEST SCH ×3 (06:00→17:30)
[2019-08-09] MEDS: METOCLOPRAMIDE HCL 10MG/2ML VIAL IV SCH ×4 (06:00→23:47)
[2019-08-09] MEDS: INSULIN LISPRO 100 UNITS/ML SUBCUT SCH ×4 (06:06→23:40)
[2019-08-09 07:32] LABS: BASOPHILS % 0.6 % (0.0-2.0); HEMATOCRIT. 30.4 % (36.0-48.0); HEMOGLOBIN. 10.1 g/dL (12.0-16.0); MEAN CORPUSCULAR VOLUME 99.3 fL (81.0-99.0); MEAN PLATELET VOLUME 9.2 fl (7.4-10.4); MONOCYTES % 7.3 % (2.0-8.0); NEUTROPHILS % 79.1 % (40.0-76.0); PLATELET 101 x1000/uL (130-400); RED BLOOD CELL COUNT 3.06 mill/uL (4.2-5.4); RED CELL DISTRIBUTION WIDTH 15.6 % (11.6-14.6)
[2019-08-09 08:00] LABS: CHLORIDE 105 mEq/L (98-107)
[2019-08-09] MEDS: QUETIAPINE FUMARATE 25MG TABLET PO SCH ×2 (08:42→19:58)
[2019-08-09] MEDS: THIAMINE HCL 100MG TABLET PO SCH (08:42)
[2019-08-09] MEDS: FOLIC ACID 1MG TABLET PO SCH (08:42)
[2019-08-09] MEDS: MULTIVITAMINS,THER W-MINERALS TABLET PO SCH (08:42)
[2019-08-09] MEDS: IPRATROPIUM BROMIDE (0.02%) 0.5MG/2.5ML NEB HHN PRN ×2 (09:56→17:18)
[2019-08-09] MEDS: ENOXAPARIN 40MG/0.4ML SYR SUBCUT SCH (14:00)
[2019-08-09] MEDS: CLONIDINE 0.3MG TABLET PO PRN (20:08)
[2019-08-09] MEDS: INSULIN GLARGINE UD 100 UNITS/ML SYR SUBCUT SCH (23:39)
[2019-08-10] VITALS (14 sets, daily range): BP systolic 98–164; BP diastolic 50–100
[2019-08-10] MEDS: IPRATROPIUM/ALBUTEROL 0.5-3(2.5)MG/3ML NEB HHN SCH ×4 (01:18→21:29)
[2019-08-10] MEDS: INSULIN LISPRO 100 UNITS/ML SUBCUT SCH ×3 (06:39→18:00)
[2019-08-10] MEDS: BLOOD SUGAR DIAGNOSTIC STRIP TEST SCH ×4 (06:40→18:19)
[2019-08-10] MEDS: METOCLOPRAMIDE HCL 10MG/2ML VIAL IV SCH ×3 (06:47→18:19)
[2019-08-10] MEDS: FOLIC ACID 1MG TABLET PO SCH (08:19)
[2019-08-10] MEDS: QUETIAPINE FUMARATE 25MG TABLET PO SCH ×2 (08:19→20:51)
[2019-08-10] MEDS: THIAMINE HCL 100MG TABLET PO SCH (08:19)
[2019-08-10] MEDS: MULTIVITAMINS,THER W-MINERALS TABLET PO SCH (08:20)
[2019-08-10] MEDS: DOCUSATE SODIUM SUGAR FREE 100MG/10ML UDC NG PRN (08:35)
[2019-08-10 09:52] LABS: BASOPHILS % 0.4 % (0.0-2.0); EOSINOPHILS % 3.3 % (0.0-5.0); HEMATOCRIT. 28.5 % (36.0-48.0); HEMOGLOBIN. 9.6 g/dL (12.0-16.0); MEAN CORPUSCULAR HEMOGLOBIN 34.2 pg (28.0-32.0); MEAN CORPUSCULAR VOLUME 101.5 fL (81.0-99.0); MEAN PLATELET VOLUME 10.5 fl (7.4-10.4); MONOCYTES % 9.5 % (2.0-8.0); NEUTROPHILS % 73.8 % (40.0-76.0); PLATELET 125 x1000/uL (130-400); RED CELL DISTRIBUTION WIDTH 15.8 % (11.6-14.6)
[2019-08-10 11:20] LABS: CHLORIDE 106 mEq/L (98-107)
[2019-08-10] MEDS: CARVEDILOL 6.25 MG TABLET PO SCH ×2 (12:09→20:50)
[2019-08-10] MEDS: ENOXAPARIN 40MG/0.4ML SYR SUBCUT SCH (12:10)
[2019-08-10 12:35] LABS: HEMATOCRIT 26.8 % (36.0-48.0); MEAN CORPUSCULAR HEMOGLOBIN 33.7 pg (28.0-32.0); MEAN CORPUSCULAR VOLUME 100.2 fL (81.0-99.0); PLATELET 165 x1000/uL (130-400); RED BLOOD CELL COUNT 2.68 mill/uL (4.2-5.4); RED CELL DISTRIBUTION WIDTH 15.4 % (11.6-14.6)
[2019-08-10 12:40] LABS: CHLORIDE 106 mEq/L (98-107)
[2019-08-10] MEDS: ACETAMINOPHEN 325MG TABLET PO PRN (20:51)
[2019-08-11] VITALS (12 sets, daily range): BP systolic 109–183; BP diastolic 47–118
[2019-08-11] MEDS: IPRATROPIUM/ALBUTEROL 0.5-3(2.5)MG/3ML NEB HHN SCH ×4 (01:11→21:18)
[2019-08-11] MEDS: METOCLOPRAMIDE HCL 10MG/2ML VIAL IV SCH ×4 (01:15→18:22)
[2019-08-11] MEDS: INSULIN GLARGINE UD 100 UNITS/ML SYR SUBCUT SCH ×2 (01:16→22:25)
[2019-08-11] MEDS: INSULIN LISPRO 100 UNITS/ML SUBCUT SCH ×5 (01:19→23:45)
[2019-08-11] MEDS: DIPHENHYDRAMINE 50MG/ML VIAL IV PRN ×3 (05:09→20:31)
[2019-08-11] MEDS: BLOOD SUGAR DIAGNOSTIC STRIP TEST SCH ×5 (05:19→23:44)
[2019-08-11] MEDS: CLONIDINE 0.3MG TABLET PO PRN (05:28)
[2019-08-11] MEDS: MULTIVITAMINS,THER W-MINERALS TABLET PO SCH (09:43)
[2019-08-11] MEDS: QUETIAPINE FUMARATE 25MG TABLET PO SCH ×2 (09:43→20:31)
[2019-08-11] MEDS: FOLIC ACID 1MG TABLET PO SCH (09:43)
[2019-08-11] MEDS: THIAMINE HCL 100MG TABLET PO SCH (09:43)
[2019-08-11] MEDS: CARVEDILOL 6.25 MG TABLET PO SCH ×2 (09:44→20:32)
[2019-08-11] MEDS: ENOXAPARIN 40MG/0.4ML SYR SUBCUT SCH (13:11)
[2019-08-11] MEDS: ONDANSETRON HCL 4MG/2ML INJ IV PRN (20:31)
[2019-08-12] VITALS (11 sets, daily range): BP systolic 117–162; BP diastolic 70–95
[2019-08-12] MEDS: METOCLOPRAMIDE HCL 10MG/2ML VIAL IV SCH ×5 (00:34→23:29)
[2019-08-12] MEDS: IPRATROPIUM/ALBUTEROL 0.5-3(2.5)MG/3ML NEB HHN SCH ×5 (02:15→20:18)
[2019-08-12] MEDS: DIPHENHYDRAMINE 50MG/ML VIAL IV PRN (05:59)
[2019-08-12] MEDS: BLOOD SUGAR DIAGNOSTIC STRIP TEST SCH ×3 (06:00→23:26)
[2019-08-12] MEDS: INSULIN LISPRO 100 UNITS/ML SUBCUT SCH ×4 (06:09→23:27)
[2019-08-12] MEDS: FOLIC ACID 1MG TABLET PO SCH (08:46)
[2019-08-12] MEDS: QUETIAPINE FUMARATE 25MG TABLET PO SCH ×2 (08:46→21:05)
[2019-08-12] MEDS: MULTIVITAMINS,THER W-MINERALS TABLET PO SCH (08:47)
[2019-08-12] MEDS: CARVEDILOL 6.25 MG TABLET PO SCH ×2 (08:47→21:00)
[2019-08-12] MEDS: THIAMINE HCL 100MG TABLET PO SCH (08:47)
[2019-08-12] MEDS: ENOXAPARIN 40MG/0.4ML SYR SUBCUT SCH (13:35)
[2019-08-12 16:07] LABS: HEMATOCRIT 31.7 % (36.0-48.0); HEMOGLOBIN 10.4 g/dL (12.0-16.0); MEAN CORPUSCULAR HEMOGLOBIN 32.6 pg (28.0-32.0); MEAN CORPUSCULAR VOLUME 99.7 fL (81.0-99.0); PLATELET 159 x1000/uL (130-400); RED BLOOD CELL COUNT 3.18 mill/uL (4.2-5.4); RED CELL DISTRIBUTION WIDTH 15.9 % (11.6-14.6)
[2019-08-12 16:30] LABS: CHLORIDE 106 mEq/L (98-107)
[2019-08-12] MEDS: ONDANSETRON HCL 4MG/2ML INJ IV PRN (21:04)
[2019-08-12] MEDS: INSULIN GLARGINE UD 100 UNITS/ML SYR SUBCUT SCH (21:18)
[2019-08-13] VITALS (12 sets, daily range): BP systolic 112–165; BP diastolic 52–99
[2019-08-13] MEDS: IPRATROPIUM/ALBUTEROL 0.5-3(2.5)MG/3ML NEB HHN SCH ×4 (01:27→20:00)
[2019-08-13] MEDS: LORAZEPAM 2MG/ML CPJ IV PRN ×3 (04:10→12:10)
[2019-08-13] MEDS: BLOOD SUGAR DIAGNOSTIC STRIP TEST SCH ×3 (05:13→17:34)
[2019-08-13] MEDS: DIPHENHYDRAMINE 50MG/ML VIAL IV PRN (05:20)
[2019-08-13] MEDS: METOCLOPRAMIDE HCL 10MG/2ML VIAL IV SCH ×3 (05:20→17:34)
[2019-08-13] MEDS: INSULIN LISPRO 100 UNITS/ML SUBCUT SCH ×3 (05:21→17:44)
[2019-08-13] MEDS: THIAMINE HCL 100MG TABLET PO SCH (08:59)
[2019-08-13] MEDS: CARVEDILOL 6.25 MG TABLET PO SCH ×2 (08:59→21:20)
[2019-08-13] MEDS: MULTIVITAMINS,THER W-MINERALS TABLET PO SCH (08:59)
[2019-08-13] MEDS: QUETIAPINE FUMARATE 25MG TABLET PO SCH ×2 (08:59→21:20)
[2019-08-13] MEDS: FOLIC ACID 1MG TABLET PO SCH (08:59)
[2019-08-13] MEDS: CLONIDINE 0.3MG TABLET PO PRN (15:26)
[2019-08-13] MEDS: ENOXAPARIN 40MG/0.4ML SYR SUBCUT SCH (15:26)
[2019-08-13] MEDS: ALPRAZOLAM 0.25 MG TABLET PO SCH ×2 (15:29→21:19)
[2019-08-13] MEDS: DOCUSATE SODIUM SUGAR FREE 100MG/10ML UDC NG PRN (17:34)
[2019-08-14] VITALS (11 sets, daily range): BP systolic 100–176; BP diastolic 54–93
[2019-08-14] MEDS: METOCLOPRAMIDE HCL 10MG/2ML VIAL IV SCH ×3 (00:17→14:05)
[2019-08-14] MEDS: BLOOD SUGAR DIAGNOSTIC STRIP TEST SCH ×3 (00:17→13:54)
[2019-08-14] MEDS: LORAZEPAM 2MG/ML CPJ IV PRN ×3 (00:18→13:16)
[2019-08-14] MEDS: INSULIN LISPRO 100 UNITS/ML SUBCUT SCH ×3 (00:23→14:04)
[2019-08-14] MEDS: INSULIN GLARGINE UD 100 UNITS/ML SYR SUBCUT SCH (00:25)
[2019-08-14] MEDS: IPRATROPIUM/ALBUTEROL 0.5-3(2.5)MG/3ML NEB HHN SCH ×3 (01:31→13:30)
[2019-08-14] MEDS: ALPRAZOLAM 0.25 MG TABLET PO SCH ×2 (05:23→14:05)
[2019-08-14 06:53] LABS: BASOPHILS % 0.9 % (0.0-2.0); EOSINOPHILS % 3.3 % (0.0-5.0); HEMATOCRIT. 30.8 % (36.0-48.0); HEMOGLOBIN. 10.2 g/dL (12.0-16.0); LYMPHOCYTES % 18.5 % (20.0-50.0); MEAN CORPUSCULAR HEMOGLOBIN 32.9 pg (28.0-32.0); MEAN CORPUSCULAR VOLUME 99.4 fL (81.0-99.0); MEAN PLATELET VOLUME 9.7 fl (7.4-10.4); MONOCYTES % 10.1 % (2.0-8.0); NEUTROPHILS % 67.2 % (40.0-76.0); PLATELET 306 x1000/uL (130-400); RED CELL DISTRIBUTION WIDTH 16.1 % (11.6-14.6)
[2019-08-14 07:33] LABS: CHLORIDE 106 mEq/L (98-107)
[2019-08-14] MEDS: MULTIVITAMINS,THER W-MINERALS TABLET PO SCH (08:50)
[2019-08-14] MEDS: FOLIC ACID 1MG TABLET PO SCH (08:50)
[2019-08-14] MEDS: THIAMINE HCL 100MG TABLET PO SCH (08:50)
[2019-08-14] MEDS: QUETIAPINE FUMARATE 25MG TABLET PO SCH (08:50)
[2019-08-14] MEDS: CARVEDILOL 6.25 MG TABLET PO SCH (08:51)
[2019-08-14] MEDS: CLONIDINE 0.3MG TABLET PO PRN (14:05)
[2019-08-14] MEDS: ENOXAPARIN 40MG/0.4ML SYR SUBCUT SCH (14:06)
== END 2019-08-14 18:58 | DRG 3 ==
LOC: ER 09:20 → MICUSO 10:57 → EDBEDREQTM 11:10 → EDBEDREQ 11:10 → ENRESERV 11:40 → 5EST 08-06 23:36
PROVIDERS: ADMIT Internal Medicine; ATTEND Internal Medicine
PROC: 5A1955Z Respiratory Ventilation, Greater than 96 Consecutive Hours (ICD-10-PCS; principal; 2019-07-21)
PROC: 0BH17EZ Insertion of Endotracheal Airway into Trachea, Via Natural or Artificial Opening (ICD-10-PCS; 2019-07-21)
PROC: 5A12012 Performance of Cardiac Output, Single, Manual (ICD-10-PCS; 2019-07-21)
PROC: 06HY33Z Insertion of Infusion Device into Lower Vein, Percutaneous Approach (ICD-10-PCS; 2019-07-21)
PROC: 0BH17EZ Insertion of Endotracheal Airway into Trachea, Via Natural or Artificial Opening (ICD-10-PCS; 2019-07-22)
PROC: 0B110F4 Bypass Trachea to Cutaneous with Tracheostomy Device, Open Approach (ICD-10-PCS; 2019-07-31)
PROC: 0GBJ0ZZ Excision of Thyroid Gland Isthmus, Open Approach (ICD-10-PCS; 2019-07-31)
PROC: 0DH63UZ Insertion of Feeding Device into Stomach, Percutaneous Approach (ICD-10-PCS; 2019-08-02)
PROC: 02HV33Z Insertion of Infusion Device into Superior Vena Cava, Percutaneous Approach (ICD-10-PCS; 2019-08-04)
PROC: B548ZZA Ultrasonography of Superior Vena Cava, Guidance (ICD-10-PCS; 2019-08-04)
DX: J44.1 Chronic obstructive pulmonary disease with (acute) exacerbation (principal); J96.20 Acute and chronic respiratory failure, unspecified whether with hypoxia or hypercapnia; G93.41 Metabolic encephalopathy; I46.9 Cardiac arrest, cause unspecified; J98.11 Atelectasis; E44.0 Moderate protein-calorie malnutrition; K86.1 Other chronic pancreatitis; Z99.11 Dependence on respirator [ventilator] status; E86.0 Dehydration; E11.649 Type 2 diabetes mellitus with hypoglycemia without coma; D53.9 Nutritional anemia, unspecified; D69.6 Thrombocytopenia, unspecified; D72.829 Elevated white blood cell count, unspecified; E11.65 Type 2 diabetes mellitus with hyperglycemia; F17.210 Nicotine dependence, cigarettes, uncomplicated; F41.0 Panic disorder [episodic paroxysmal anxiety]; K59.00 Constipation, unspecified; R13.10 Dysphagia, unspecified; J38.4 Edema of larynx; I11.9 Hypertensive heart disease without heart failure; F10.20 Alcohol dependence, uncomplicated; I48.91 Unspecified atrial fibrillation; R00.1 Bradycardia, unspecified; F41.1 Generalized anxiety disorder; Z79.4 Long term (current) use of insulin; Z79.51 Long term (current) use of inhaled steroids; Z86.73 Personal history of transient ischemic attack (TIA), and cerebral infarction without residual deficits; Z91.14 Patient's other noncompliance with medication regimen; Z68.24 Body mass index [BMI] 24.0-24.9, adult; Z91.19 Patient's noncompliance with other medical treatment and regimen; Z87.440 Personal history of urinary (tract) infections; Z88.6 Allergy status to analgesic agent; Z79.899 Other long term (current) drug therapy
CPT/HCPCS: 36415; 36600; 70491; 71045; 71260; 74018; 76937; 80048; 80053; 80061; 80202; 80305; 82375; 82805; 82962; 83735; 83880; 84439; 84443; 84478; 84484; 85025; 85027; 85379; 93005; 93306; 94002; 94003; 94640; 96365; 96368; 96375; 97110; 97162; 97167; 97530; 97535; 99291; C1725; C9113; J0330; J0360; J0690; J1100; J1170; J1200; J1650; J1815; J2060; J2250; J2370; J2405; J2543; J2704; J2765; J2930; J3010; J3370; J3475; J3490; J7060; Q9967

== ENCOUNTER 2019-11-07 06:30 | Inpatient (IN) | payer MEDICARE, OTHER, MEDICAID ==
[~2019-11-07] VITALS: Ht 154.9 cm; Wt 49.9 kg
[2019-11-07] MEDS ORDERED: ALBUTEROL (0.083%) 2.5MG/3ML NEB HHN STA (06:51)
[2019-11-07] MEDS ORDERED: IPRATROPIUM BROMIDE (0.02%) 0.5MG/2.5ML NEB HHN STA (06:51)
[2019-11-07] MEDS ORDERED: HYDRALAZINE 20MG/ML VIAL IV ONE (07:00)
[2019-11-07 07:54] LABS: CHLORIDE 105 mEq/L (98-107)
[2019-11-07 07:59] LABS: BASOPHILS % 0.1 % (0.0-2.0); EOSINOPHILS % 0.7 % (0.0-5.0); HEMATOCRIT. 45.2 % (36.0-48.0); HEMOGLOBIN. 14.8 g/dL (12.0-16.0); LYMPHOCYTES % 24.7 % (20.0-50.0); MEAN CORPUSCULAR HEMOGLOBIN 29.8 pg (28.0-32.0); MEAN CORPUSCULAR VOLUME 91.1 fL (81.0-99.0); MEAN PLATELET VOLUME 9.7 fl (7.4-10.4); MONOCYTES % 4.9 % (2.0-8.0); NEUTROPHILS % 69.6 % (40.0-76.0); PLATELET 117 x1000/uL (130-400); RED BLOOD CELL COUNT 4.96 mill/uL (4.2-5.4); RED CELL DISTRIBUTION WIDTH 16.2 % (11.6-14.6)
[2019-11-07 08:18] LABS: PROTHROMBIN TIME 47.5 sec (9.6-11.0)
[2019-11-07 08:19] LABS: INR 4.6
[2019-11-07] MEDS ORDERED: ONDANSETRON HCL 4MG/2ML INJ IV PRN (12:00)
[2019-11-07] MEDS ORDERED: DEXTROSE 50% WATER 50ML SYRINGE IV PRN (12:00)
[2019-11-07] MEDS: CLONIDINE 0.1MG TABLET PO PRN (12:27)
[2019-11-07] MEDS: BLOOD SUGAR DIAGNOSTIC STRIP TEST SCH ×3 (12:49→21:42)
[2019-11-07] MEDS: INSULIN LISPRO 100 UNITS/ML SUBCUT SCH ×3 (12:54→21:00)
[2019-11-07 13:46] LABS: CLARITY URINE CLEAR (CLEAR); COLOR URINE YELLOW (YELLOW); KETONES URINE TRACE (NEGATIVE); LEUKOCYTE ESTERASE URINE NEGATIVE (NEGATIVE); NITRITE URINE NEGATIVE (NEGATIVE); OCCULT BLOOD URINE NEGATIVE (NEGATIVE); PROTEIN URINE NEGATIVE (NEGATIVE); SPECIFIC GRAVITY URINE 1.014 (1.005-1.030); UROBILINOGEN URINE 0.2 E.U./dL (0.2-1.0)
[2019-11-07 14:00] VITALS: BP 149/77
[2019-11-07] MEDS ORDERED: POTASSIUM CHLORIDE 20MEQ TABLET SR PO NR (16:37)
[2019-11-07] MEDS: ACETAMINOPHEN 325MG TABLET PO PRN (17:24)
[2019-11-07] MEDS: AMLODIPINE 5MG TABLET PO SCH ×2 (17:25→21:46)
[2019-11-07 20:00] VITALS: BP 144/72
[2019-11-07] MEDS: FLUTICASONE PROPIONATE 50MCG/SPRAY BOTTLE BOTHNSTRLS SCH (20:00)
[2019-11-07] MEDS: BUDESONIDE 0.5MG/2ML NEB HHN SCH (20:27)
[2019-11-07] MEDS: IPRATROPIUM/ALBUTEROL 0.5-3(2.5)MG/3ML NEB HHN SCH (20:29)
[2019-11-07] MEDS: ALPRAZOLAM 0.25 MG TABLET PO SCH (21:46)
[2019-11-08] VITALS: BP 152/68
[2019-11-08] MEDS: IPRATROPIUM/ALBUTEROL 0.5-3(2.5)MG/3ML NEB HHN SCH ×6 (00:58→21:00)
[2019-11-08 06:15] LABS: BASOPHILS % 0.7 % (0.0-2.0); EOSINOPHILS % 2.5 % (0.0-5.0); HEMATOCRIT. 35.6 % (36.0-48.0); HEMOGLOBIN. 11.9 g/dL (12.0-16.0); LYMPHOCYTES % 36.4 % (20.0-50.0); MEAN CORPUSCULAR HEMOGLOBIN 29.8 pg (28.0-32.0); MEAN CORPUSCULAR VOLUME 89.3 fL (81.0-99.0); MEAN PLATELET VOLUME 9.4 fl (7.4-10.4); MONOCYTES % 6.4 % (2.0-8.0); PLATELET 127 x1000/uL (130-400); RED BLOOD CELL COUNT 3.99 mill/uL (4.2-5.4); RED CELL DISTRIBUTION WIDTH 15.6 % (11.6-14.6)
[2019-11-08] MEDS: BLOOD SUGAR DIAGNOSTIC STRIP TEST SCH ×4 (06:30→21:03)
[2019-11-08] MEDS: ALPRAZOLAM 0.25 MG TABLET PO SCH ×4 (06:30→22:26)
[2019-11-08] MEDS: INSULIN LISPRO 100 UNITS/ML SUBCUT SCH ×4 (06:30→21:00)
[2019-11-08 06:49] LABS: CHLORIDE 105 mEq/L (98-107)
[2019-11-08 08:00] VITALS: BP 150/70
[2019-11-08] MEDS: BUDESONIDE 0.5MG/2ML NEB HHN SCH (09:38)
[2019-11-08] MEDS: AMLODIPINE 5MG TABLET PO SCH ×2 (10:20→21:03)
[2019-11-08] MEDS: FLUTICASONE PROPIONATE 50MCG/SPRAY BOTTLE BOTHNSTRLS SCH (10:46)
[2019-11-08] MEDS: ACETAMINOPHEN 325MG TABLET PO PRN ×2 (10:51→22:26)
[2019-11-08 12:00] VITALS: BP 165/94
[2019-11-08 16:00] VITALS: BP 140/84
[2019-11-08 20:00] VITALS: BP 169/85
[2019-11-08] MEDS: DIPHENHYDRAMINE 50MG CAPSULE PO PRN (21:03)
[2019-11-08 22:00] VITALS: BP 153/75
[2019-11-09 00:20] VITALS: BP 160/59
[2019-11-09] MEDS: CLONIDINE 0.1MG TABLET PO PRN (00:47)
[2019-11-09 04:00] VITALS: BP 159/91
[2019-11-09] MEDS: IPRATROPIUM/ALBUTEROL 0.5-3(2.5)MG/3ML NEB HHN SCH ×3 (04:10→12:01)
[2019-11-09] MEDS: BLOOD SUGAR DIAGNOSTIC STRIP TEST SCH ×4 (06:25→21:00)
[2019-11-09] MEDS: ALPRAZOLAM 0.25 MG TABLET PO SCH ×3 (06:27→22:17)
[2019-11-09] MEDS: INSULIN LISPRO 100 UNITS/ML SUBCUT SCH ×4 (06:28→22:14)
[2019-11-09] MEDS: ACETAMINOPHEN 325MG TABLET PO PRN ×2 (06:51→23:50)
[2019-11-09 08:00] VITALS: BP 150/74
[2019-11-09] MEDS: BUDESONIDE 0.5MG/2ML NEB HHN SCH ×2 (08:56→21:02)
[2019-11-09] MEDS: AMLODIPINE 5MG TABLET PO SCH ×2 (10:08→22:05)
[2019-11-09] MEDS: FLUTICASONE PROPIONATE 50MCG/SPRAY BOTTLE BOTHNSTRLS SCH (10:12)
[2019-11-09 12:00] VITALS: BP 153/74
[2019-11-09] MEDS: LOSARTAN POTASSIUM 50 MG TABLET PO SCH (12:41)
[2019-11-09 16:00] VITALS: BP 147/72
[2019-11-09] MEDS: DIPHENHYDRAMINE 50MG CAPSULE PO PRN (17:05)
[2019-11-09 20:00] VITALS: BP_SYST 159; BP_SYST 167; BP_DIAS 90
[2019-11-09] MEDS: IPRATROPIUM/ALBUTEROL 0.5-3(2.5)MG/3ML NEB HHN PRN (21:03)
[2019-11-10] VITALS: BP 167/90
[2019-11-10] MEDS: BLOOD SUGAR DIAGNOSTIC STRIP TEST SCH ×2 (06:34→12:02)
[2019-11-10] MEDS: ALPRAZOLAM 0.25 MG TABLET PO SCH (06:34)
[2019-11-10] MEDS: ACETAMINOPHEN 325MG TABLET PO PRN (06:37)
[2019-11-10 08:00] VITALS: BP 116/83
[2019-11-10] MEDS: AMLODIPINE 5MG TABLET PO SCH (09:08)
[2019-11-10] MEDS: LOSARTAN POTASSIUM 50 MG TABLET PO SCH (09:08)
[2019-11-10] MEDS: FLUTICASONE PROPIONATE 50MCG/SPRAY BOTTLE BOTHNSTRLS SCH (09:10)
[2019-11-10] MEDS: INSULIN LISPRO 100 UNITS/ML SUBCUT SCH ×2 (09:11→13:02)
[2019-11-10] MEDS: IPRATROPIUM/ALBUTEROL 0.5-3(2.5)MG/3ML NEB HHN PRN ×2 (09:47→15:35)
[2019-11-10] MEDS: BUDESONIDE 0.5MG/2ML NEB HHN SCH (09:47)
[2019-11-10] MEDS ORDERED: HYDROCODONE/ACETAMINOPHEN 5/325MG TABLET PO PRN (11:30)
[2019-11-10] MEDS ORDERED: INSULIN GLARGINE UD 100 UNITS/ML SYR SUBCUT SCH (11:30)
[2019-11-10 12:00] VITALS: BP 116/83
[2019-11-10] MEDS ORDERED: TRAM50TA3 MT (12:34)
[2019-11-10] MEDS ORDERED: METF-416 MT (12:48)
[2019-11-10 16:08] VITALS: BP 130/84
[2019-11-11] MEDS ORDERED: INSULIN GLARGINE UD 100 UNITS/ML SYR SUBCUT SCH (10:00)
== END 2019-11-10 17:42 | disposition home or self-care (01) | DRG 637 ==
LOC: ER 06:30 → 5WST 11:08 → ENRESERV 12:51 → 5WST 11-08 11:07
PROVIDERS: ADMIT Internal Medicine; ATTEND Internal Medicine
DX: E11.649 Type 2 diabetes mellitus with hypoglycemia without coma (principal); G93.41 Metabolic encephalopathy; D68.9 Coagulation defect, unspecified; E87.2 Acidosis; K86.1 Other chronic pancreatitis; F41.0 Panic disorder [episodic paroxysmal anxiety]; I48.0 Paroxysmal atrial fibrillation; I16.0 Hypertensive urgency; E87.6 Hypokalemia; F17.210 Nicotine dependence, cigarettes, uncomplicated; J44.9 Chronic obstructive pulmonary disease, unspecified; I10 Essential (primary) hypertension; D69.6 Thrombocytopenia, unspecified; Z93.0 Tracheostomy status; Z71.6 Tobacco abuse counseling; Z88.5 Allergy status to narcotic agent; Z79.899 Other long term (current) drug therapy; Z86.73 Personal history of transient ischemic attack (TIA), and cerebral infarction without residual deficits; Z79.52 Long term (current) use of systemic steroids
CPT/HCPCS: 36415; 71045; 71100; 80048; 80053; 81003; 82962; 83605; 83880; 84145; 84484; 85025; 93005; 93306; 94640; 97161; 99291; J0360; J1815; J7626; Q0163

== ENCOUNTER 2019-11-13 17:55 | Inpatient (IN) | payer MEDICARE, OTHER ==
[~2019-11-13] VITALS: Ht 165.1 cm; Wt 59.4 kg
[~2019-11-13 17:55] MED LIST changes: -LANTUSUD SUBCUT; +METF-416 MT; +TRAM50TA3 MT
[2019-11-13 19:41] LABS: CHLORIDE 104 mEq/L (98-107); PROTHROMBIN TIME 11.1 sec (9.6-11.0)
[2019-11-13 19:56] LABS: BASOPHILS % 0.9 % (0.0-2.0); EOSINOPHILS % 2.9 % (0.0-5.0); HEMATOCRIT. 39.4 % (36.0-48.0); HEMOGLOBIN. 13.1 g/dL (12.0-16.0); LYMPHOCYTES % 39.3 % (20.0-50.0); MEAN CORPUSCULAR HEMOGLOBIN 29.2 pg (28.0-32.0); MEAN CORPUSCULAR VOLUME 87.9 fL (81.0-99.0); MONOCYTES % 8.9 % (2.0-8.0); RED BLOOD CELL COUNT 4.48 mill/uL (4.2-5.4); RED CELL DISTRIBUTION WIDTH 15.7 % (11.6-14.6)
[2019-11-13 20:33] LABS: PLATELET 132 x1000/uL (130-400)
[2019-11-13 20:34] LABS: PLATELET ESTIMATE NORMAL
[2019-11-13] MEDS ORDERED: LORAZEPAM 2MG/ML CPJ IV ONE (22:00)
[2019-11-13] MEDS ORDERED: LABETALOL 5MG/ML SYR 20 MG/4 ML SYRINGE IV ONE (23:00)
[2019-11-13] MEDS: SODIUM CHLORIDE 0.9% 1,000 ML IV SCH (23:30)
[2019-11-13] MEDS ORDERED: ONDANSETRON HCL 4MG/2ML INJ IV PRN (23:30)
[2019-11-13] MEDS ORDERED: ACETAMINOPHEN 325MG TABLET PO PRN (23:30)
[2019-11-13] MEDS ORDERED: IPRATROPIUM/ALBUTEROL 0.5-3(2.5)MG/3ML NEB NEB PRN (23:30)
[2019-11-14] MEDS: CLONIDINE 0.1MG TABLET PO PRN ×2 (01:30→08:52)
[2019-11-14 06:06] LABS: CHLORIDE 103 mEq/L (98-107)
[2019-11-14 06:08] LABS: BASOPHILS % 0.5 % (0.0-2.0); EOSINOPHILS % 1.9 % (0.0-5.0); HEMATOCRIT. 38.5 % (36.0-48.0); HEMOGLOBIN. 12.9 g/dL (12.0-16.0); LYMPHOCYTES % 27.5 % (20.0-50.0); MEAN CORPUSCULAR HEMOGLOBIN 29.7 pg (28.0-32.0); MEAN CORPUSCULAR VOLUME 88.8 fL (81.0-99.0); MEAN PLATELET VOLUME 8.8 fl (7.4-10.4); MONOCYTES % 8.2 % (2.0-8.0); NEUTROPHILS % 61.9 % (40.0-76.0); PLATELET 148 x1000/uL (130-400); RED BLOOD CELL COUNT 4.33 mill/uL (4.2-5.4); RED CELL DISTRIBUTION WIDTH 15.3 % (11.6-14.6)
[2019-11-14 09:20] VITALS: BP_SYST 173; BP_SYST 176; BP_DIAS 96
[2019-11-14 12:15] VITALS: BP 147/85
[2019-11-14] MEDS: SODIUM CHLORIDE 0.9% 1,000 ML IV SCH ×2 (13:14→19:30)
[2019-11-14] MEDS ORDERED: DEXTROSE 50% WATER 50ML SYRINGE IV PRN (13:15)
[2019-11-14] MEDS ORDERED: METHYLPREDNISOLONE SOD SUCC 125 MG/2 ML VIAL IV NR (15:30)
[2019-11-14 16:09] VITALS: BP 181/97
[2019-11-14] MEDS: IPRATROPIUM/ALBUTEROL 0.5-3(2.5)MG/3ML NEB HHN SCH ×2 (16:45→22:02)
[2019-11-14] MEDS: BLOOD SUGAR DIAGNOSTIC STRIP TEST SCH ×2 (17:26→20:00)
[2019-11-14] MEDS: INSULIN LISPRO 100 UNITS/ML SUBCUT SCH ×2 (17:38→20:01)
[2019-11-14] MEDS: METHYLPREDNISOLONE SOD SUCC 40 MG/ML VIAL IV SCH (22:00)
[2019-11-14] MEDS: ALPRAZOLAM 0.5 MG TABLET PO PRN (23:39)
[2019-11-15] VITALS: BP 150/84
[2019-11-15] MEDS: IPRATROPIUM/ALBUTEROL 0.5-3(2.5)MG/3ML NEB HHN SCH ×6 (00:21→20:57)
[2019-11-15 04:00] VITALS: BP 140/65
[2019-11-15] MEDS: SODIUM CHLORIDE 0.9% 1,000 ML IV SCH ×2 (06:25→15:30)
[2019-11-15] MEDS: INSULIN LISPRO 100 UNITS/ML SUBCUT SCH ×6 (06:59→20:26)
[2019-11-15] MEDS: METHYLPREDNISOLONE SOD SUCC 40 MG/ML VIAL IV SCH ×2 (07:03→14:34)
[2019-11-15 08:00] VITALS: BP 165/92
[2019-11-15] MEDS: CLONIDINE 0.1MG TABLET PO PRN ×2 (08:11→20:26)
[2019-11-15] MEDS: BLOOD SUGAR DIAGNOSTIC STRIP TEST SCH ×4 (08:12→21:00)
[2019-11-15] MEDS: ALPRAZOLAM 0.5 MG TABLET PO PRN (08:36)
[2019-11-15 11:52] VITALS: BP 164/91
[2019-11-15] MEDS: LOSARTAN POTASSIUM 50 MG TABLET PO SCH (12:29)
[2019-11-15] MEDS: AMLODIPINE 10MG TABLET PO SCH (12:30)
[2019-11-15] MEDS ORDERED: GUAIFENESIN/CODEINE 200-20MG/10ML UDC PO PRN (15:45)
[2019-11-15] MEDS ORDERED: DOCUSATE SODIUM 100MG CAPSULE PO PRN (15:45)
[2019-11-15] MEDS ORDERED: DIPHENHYDRAMINE 25MG CAPSULE PO PRN (15:45)
[2019-11-15 16:05] VITALS: BP 165/99
[2019-11-15] MEDS ORDERED: GUAIFENESIN-DM 200MG-20MG/10ML UDC PO PRN (16:15)
[2019-11-15] MEDS ORDERED: PREDNISONE 20MG TABLET PO SCH (17:00)
[2019-11-15 20:00] VITALS: BP 177/98
[2019-11-16] VITALS: BP 154/90
[2019-11-16] MEDS: IPRATROPIUM/ALBUTEROL 0.5-3(2.5)MG/3ML NEB HHN SCH ×4 (01:05→12:25)
[2019-11-16] MEDS: SODIUM CHLORIDE 0.9% 1,000 ML IV SCH ×2 (01:30→12:21)
[2019-11-16 04:00] VITALS: BP 152/86
[2019-11-16] MEDS: INSULIN LISPRO 100 UNITS/ML SUBCUT SCH ×5 (06:49→17:50)
[2019-11-16] MEDS: BLOOD SUGAR DIAGNOSTIC STRIP TEST SCH ×3 (06:52→17:20)
[2019-11-16 08:00] VITALS: BP 141/70
[2019-11-16] MEDS: LOSARTAN POTASSIUM 50 MG TABLET PO SCH (09:53)
[2019-11-16] MEDS: PREDNISONE 20MG TABLET PO SCH ×2 (09:53→17:04)
[2019-11-16] MEDS: AMLODIPINE 10MG TABLET PO SCH (09:54)
[2019-11-16 12:00] VITALS: BP 134/85
[2019-11-16 16:00] VITALS: BP 153/82
[2019-11-16 16:38] VITALS: BP 153/83
== END 2019-11-16 18:20 | disposition home health service (06) | DRG 206 ==
LOC: ER 17:55 → MICUSO 22:28 → EDBEDREQTM 22:30 → EDBEDREQ 22:30 → 6WST 11-14 09:55
PROVIDERS: ADMIT Internal Medicine; ATTEND Internal Medicine
DX: J95.01 Hemorrhage from tracheostomy stoma (principal); R04.2 Hemoptysis; J44.1 Chronic obstructive pulmonary disease with (acute) exacerbation; J96.10 Chronic respiratory failure, unspecified whether with hypoxia or hypercapnia; F41.9 Anxiety disorder, unspecified; I10 Essential (primary) hypertension; E11.9 Type 2 diabetes mellitus without complications; Y83.8 Other surgical procedures as the cause of abnormal reaction of the patient, or of later complication, without mention of misadventure at the time of the procedure; Y82.8 Other medical devices associated with adverse incidents; Z88.5 Allergy status to narcotic agent; Z79.84 Long term (current) use of oral hypoglycemic drugs; Z79.4 Long term (current) use of insulin; Z79.899 Other long term (current) drug therapy; Z86.73 Personal history of transient ischemic attack (TIA), and cerebral infarction without residual deficits; Z87.891 Personal history of nicotine dependence; Y92.89 Other specified places as the place of occurrence of the external cause
CPT/HCPCS: 36415; 71045; 71250; 80048; 80053; 82962; 83036; 85025; 86850; 86900; 93970; 96374; 99285; J1815; J2060; J2920; J2930; J3490; J7030; J7512; Q0163

== ENCOUNTER 2019-12-02 15:13 | Emergency (ER) | payer MEDICARE, OTHER ==
[~2019-12-02] VITALS: Ht 165.1 cm; Wt 65.0 kg
[2019-12-02 16:32] LABS: BASOPHILS % 0.8 % (0.0-2.0); EOSINOPHILS % 1.2 % (0.0-5.0); HEMATOCRIT. 43.4 % (36.0-48.0); HEMOGLOBIN. 14.1 g/dL (12.0-16.0); LYMPHOCYTES % 32.3 % (20.0-50.0); MEAN CORPUSCULAR HEMOGLOBIN 29.2 pg (28.0-32.0); MEAN PLATELET VOLUME 9.2 fl (7.4-10.4); MONOCYTES % 7.7 % (2.0-8.0); PLATELET 173 x1000/uL (130-400); RED BLOOD CELL COUNT 4.82 mill/uL (4.2-5.4); RED CELL DISTRIBUTION WIDTH 16.9 % (11.6-14.6)
[2019-12-02 16:36] LABS: CHLORIDE 106 mEq/L (98-107)
[2019-12-02 16:40] LABS: PARTIAL THROMBOPLASTIN TIME 27.3 sec (23.4-31.0); PROTHROMBIN TIME 10.9 sec (9.6-11.0)
[2019-12-02 18:00] VITALS: BP 186/85
== END 2019-12-02 18:30 | disposition left against medical advice (07) ==
LOC: ER 15:13 → EDBEDREQ 17:20 → ER 18:30 → CANBEDREQ 18:51
DX: J95.01 Hemorrhage from tracheostomy stoma (principal); J95.03 Malfunction of tracheostomy stoma; Y84.8 Other medical procedures as the cause of abnormal reaction of the patient, or of later complication, without mention of misadventure at the time of the procedure; Y82.8 Other medical devices associated with adverse incidents; Y92.89 Other specified places as the place of occurrence of the external cause; E11.9 Type 2 diabetes mellitus without complications; I10 Essential (primary) hypertension
CPT/HCPCS: 36415; 71045; 80053; 83880; 84484; 85025; 93005; 99285

== ENCOUNTER 2019-12-14 15:06 | Emergency (ER) | payer MEDICARE, OTHER ==
[~2019-12-14] VITALS: Ht 165.1 cm; Wt 66.0 kg
[2019-12-14 17:44] LABS: BASOPHILS % 1.1 % (0.0-2.0); EOSINOPHILS % 2.1 % (0.0-5.0); HEMATOCRIT. 39.8 % (36.0-48.0); HEMOGLOBIN. 13.2 g/dL (12.0-16.0); LYMPHOCYTES % 39.5 % (20.0-50.0); MEAN CORPUSCULAR HEMOGLOBIN 29.6 pg (28.0-32.0); MEAN CORPUSCULAR VOLUME 89.1 fL (81.0-99.0); MEAN PLATELET VOLUME 8.6 fl (7.4-10.4); MONOCYTES % 4.2 % (2.0-8.0); NEUTROPHILS % 53.1 % (40.0-76.0); PLATELET 151 x1000/uL (130-400); RED BLOOD CELL COUNT 4.47 mill/uL (4.2-5.4); RED CELL DISTRIBUTION WIDTH 17.1 % (11.6-14.6)
[2019-12-14 17:48] LABS: CHLORIDE 102 mEq/L (98-107)
[2019-12-14] MEDS ORDERED: LEVOFLOXACIN 500MG PREMIX 100 ML IV ONE (18:45)
[2019-12-14 18:46] LABS: PROTHROMBIN TIME 10.7 sec (9.6-11.0)
[2019-12-15] MEDS ORDERED: IPRATROPIUM/ALBUTEROL 0.5-3(2.5)MG/3ML NEB HHN SCH (03:00)
[2019-12-15 05:29] VITALS: BP 152/94
== END 2019-12-15 06:16 | disposition left against medical advice (07) ==
LOC: ER 15:20 → EDBEDREQSVC 15:44 → EDBEDREQ 15:44 → ER 12-15 06:16 → CANBEDREQ 12-15 07:39
DX: R06.00 Dyspnea, unspecified (principal); E87.2 Acidosis; E11.9 Type 2 diabetes mellitus without complications; I10 Essential (primary) hypertension; Z88.6 Allergy status to analgesic agent; Z79.899 Other long term (current) drug therapy; Z79.4 Long term (current) use of insulin
CPT/HCPCS: 36415; 71045; 80053; 83605; 83880; 84145; 84484; 85025; 85610; 87040; 93005; 94640; 96365; 99285; J1956

== ENCOUNTER 2019-12-15 22:43 | Emergency (ER) | payer MEDICARE, OTHER ==
[~2019-12-15] VITALS: Ht 165.1 cm; Wt 63.6 kg
[2019-12-15 23:37] VITALS: BP 180/77
== END 2019-12-16 06:02 | disposition home or self-care (01) ==
LOC: ER 22:43
DX: Z43.0 Encounter for attention to tracheostomy (principal); R06.02 Shortness of breath; R03.0 Elevated blood-pressure reading, without diagnosis of hypertension
CPT/HCPCS: 99281